=== PATIENT | female | born 1985 | race Caucasian/White ===

== ENCOUNTER 2019-10-09 17:35 | Emergency (ER) | payer OTHER ==
[~2019-10-09] VITALS: Ht 154.9 cm; Wt 44.5 kg
--- OUTSIDE RECORDS SUMMARY | ~2019-10-09 | XMS | Encounter Summary ---
Demographics + + + | Address | [address] | | | [place] [address] | + + + | Home Phone | | + + + | Preferred Language | Unknown | + + + | Marital Status | | + + + | Bahai Affiliation | 1013 | + + + | Race | Unknown | + + + | Ethnic Group | Unknown | + + + Author + + + | Author | [facility] | | | and [place] | + + + | Organization | [facility] | | | and [place] | + + + | Address | Unknown | + + + | Phone | Unavailable | + + + Support + + +---------+ + | Name | Relationship | Address | Phone | + + +---------+ + | Wai Escalante | ECON | Unknown | | + + +---------+ + Care Team Providers + +------+ + | Care Teletype Telegrapher Name | Role | Phone | + +------+ + PCP | Unavailable | + +------+ + Encounter Details +--------+ + + + + | Date | Type | Department | Care Team | Description | +--------+ + + + + | 08/11/ | Hospital | [facility] | Gino Metzger | | | 2011 | Encounter | HOSPITAL LABOR AND | [address] | | | | | [address] | [address] | | | | | [address] [place] | [place] | | | | | [address] | [address] | | | | | [phone] | [phone] | | | | | | | | +--------+ + + + + Social History + +-------+ +--------+------+ | Tobacco Use | Types | Packs/Day | Years | Date | | | | | Used | | + +-------+ +--------+------+ | Never Assessed | | | | | + +-------+ +--------+------+ + + + | Sex Assigned at | Date Recorded | | | | + + + | Not on file | | + + + + + + + | Job Start Date | Occupation | Industry | + + + + | Not on file | Not on file | Not on file | + + + + + + + + | Travel History | Travel Start | Travel End | + + + + + + | No recent travel history available. | + + documented as of this encounter Plan of Treatment +--------+---------+ + + + | Date | Type | Specialty | Care Team | Description | +--------+---------+ + + + | 10/10/ | Office | Family Medicine | Joseph Gilmore, | | | 2019 | Visit | | [facility] [address] | | | | | | [place] | | | | | | [id number] | | | | | | | | +--------+---------+ + + + documented as of this encounter Visit Diagnoses Not on filedocumented in this encounter"
--- OUTSIDE RECORDS SUMMARY | ~2019-10-09 | XMS | Encounter Summary ---
Demographics + + + | Address | [address] | | | [place] [address] | + + + | Home Phone | | + + + | Preferred Language | Unknown | + + + | Marital Status | | + + + | Scientology Affiliation | 1013 | + + + | Race | Unknown | + + + | Ethnic Group | Unknown | + + + Author + + + | Author | [facility] | | | and [place] | + + + | Organization | [facility] | | | and [...] Team Providers + +------+ + | Care Ranch Cook Name | Role | Phone | + +------+ + | Abimbola Guerin DO | PCP | | + +------+ + Reason for Visit + + + | Reason | Comments | + + + | ED Follow-up | | + + + Encounter Details +--------+ + + + + | Date | Type | Department | Care Team | Description | +--------+ + + + + | 01/04/ | Telephone | [facility] | Abimbola Guerin | ED Follow-up | | 2018 | | [facility] | [address] | | | | | [facility] [address] | [address] [place] | | | | | [facility] [place], | [place] [address] | | | | | [place] [address] | [phone] | | | | | [phone] | | | +--------+ + + + + Social History + +-------+ +--------+------+ | Tobacco Use | Types | Packs/Day | Years | Date | | | | | Used | | + +-------+ +--------+------+ | Never Smoker | | | | | + +-------+ +--------+------+ + +---+---+---+ | Smokeless Tobacco: | | | | | Never Used | | | | + +---+---+---+ + + +---------+ + | Alcohol Use | Drinks/Week | oz/Week | Comments | + + +---------+ + | Yes | 3 Glasses of wine | 3.0 | | + + +---------+ + + + + | Sex Assigned at [place] | | | | | | [id number] | | | | | | | | +--------+---------+ + + + documented as of this encounter Visit Diagnoses Not on filedocumented in this encounter"
--- OUTSIDE RECORDS SUMMARY | ~2019-10-09 | XMS | Encounter Summary ---
Demographics + + + | Address | [address] | | | [place] [address] | + + + | Home Phone | | + + + | Preferred Language | Unknown | + + + | Marital Status | | + + + | Jehovah'S Witness Affiliation | 1013 | + + + | Race | Unknown | + + + | Ethnic Group | Unknown | + + + Author + + + | Author | [facility] | | | and [place] | + + + | Organization | [facility] | | | [...] Team Providers + +------+ + | Care Abrasive Worker Name | Role | Phone | + +------+ + PCP | Unavailable | + +------+ + Encounter Details +--------+ + + + + | Date | Type | Department | Care Team | Description | +--------+ + + + + | 01/19/ | Hospital | [facility] | Karsten Baez | | | 2015 | Encounter | HOSPITAL NURSERY | [address] | | | | | [address] [place] | [address] [place], [place] | | | | | [place] | [address] | | | | | [address] | | | | | | [phone] | | | +--------+ + + + [...] [place] | | | | | | [address] | | | | | | | | +--------+---------+ + + + documented as of this encounter Visit Diagnoses Not on filedocumented in this encounter"
--- OUTSIDE RECORDS SUMMARY | ~2019-10-09 | XMS | Encounter Summary ---
Demographics + + + | Address | [address] | | | [place] [address] | + + + | Home Phone | | + + + | Preferred Language | Unknown | + + + | Marital Status | | + + + | Adventism Affiliation | 1013 | + + + | Race | Unknown | + + + | Ethnic Group | Unknown | + + + Author + + + | Author | [facility] | | | and [place] | + + + | Organization | [facility] | | [...] Team Providers + +------+ + | Care Scallop Shucker Name | Role | Phone | + +------+ + PCP | Unavailable | + +------+ + Encounter Details +--------+ + + + + | Date | Type | Department | Care Team | Description | +--------+ + + + + | 11/03/ | Hospital | [facility] | Gino Metzger | | | 2011 | Encounter | HOSPITAL OBSTETRICS | [address] | | | | | [address] [place] | [address] | | | | | [place] | [place] | | | | | [address] | [address] | | | | | [phone] | [phone] | | | | | | | [...] [place] | | | | | | [address] | | | | | | | | +--------+---------+ + + + documented as of this encounter Visit Diagnoses Not on filedocumented in this encounter"
--- OUTSIDE RECORDS SUMMARY | ~2019-10-09 | XMS | Encounter Summary ---
Demographics + + + | Address | [address] | | | [place] [address] | + + + | Home Phone | | + + + | Preferred Language | Unknown | + + + | Marital Status | | + + + | Denominational Affiliation | 1013 | + + + | Race | Unknown | + + + | Ethnic Group | Unknown | + + + Author + + + | Author | [facility] | | | and [place] | + + + | Organization | [facility] | | | [...] Team Providers + +------+ + | Care Research Agricultural Engineer Name | Role | Phone | + +------+ + PCP | Unavailable | + +------+ + Encounter Details +--------+ + + + + | Date | Type | Department | Care Team | Description | +--------+ + + + + | 08/11/ | Hospital | [facility] | Viky Fink NP | | | 2015 | Encounter | HOSPITAL LABORATORY | [address] | | | | | [address] [place] | [place] | | | | | [place] | [address] | | | | | [address] | [phone] | | | | | [phone] | | | +--------+ + + + [...] [place] | | | | | | [address] | | | | | | | | +--------+---------+ + + + documented as of this encounter Procedures + +--------+ + + + | Procedure Name | Priori | Date/Time | Associated Diagnosis | Comments | | | ty | | | | + +--------+ + + + | HCG, URINE, QUAL | Routin | 08/11/2016 | | Results for this | | | e | 1:57 PM | | procedure are in the | | | | PDT | | results section. | + +--------+ + + + documented in this encounter Results , Urine, Qual (08/11/2016 1:57 PM PDT) + + + + + + | Component | Value | Ref Range | Performed | Pathologist | | | | | At | Signature | + + + + + + | HCG SCREEN, | NEGATIVE | NEGATIVE | EXTERNAL | | | URINE | | | LAB | | + + + + + + | Internal QC | POSITIVE | POSITIVE | EXTERNAL | | | | | | LAB | | + + + + + + + + | Specimen | + + | | + + + +---------+ + + | Performing | Address | City/State/Zipcode | Phone Number | | Organization | | | | + +---------+ + + | EXTERNAL LAB | | | | + +---------+ + + documented in this encounter Visit Diagnoses Not on filedocumented in this encounter"
--- OUTSIDE RECORDS SUMMARY | ~2019-10-09 | XMS | Encounter Summary ---
Demographics + + + | Address | [address] | | | [place] [address] | + + + | Home Phone | | + + + | Preferred Language | Unknown | + + + | Marital Status | | + + + | Latter Day Affiliation | 1013 | + + + | Race | Unknown | + + + | Ethnic Group | Unknown | + + + Author + + + | Author | [facility] | | | and [place] | + + + | Organization | [facility] | | | and [...] Team Providers + +------+ + | Care Metal Handler Name | Role | Phone | + +------+ + PCP | Unavailable | + +------+ + Encounter Details +--------+ + + + + | Date | Type | Department | Care Team | Description | +--------+ + + + + | 10/24/ | Hospital | [facility] | Gino Metzger | | | 2012 | Encounter | HOSPITAL OBSTETRICS | [address] | | | | | [address] [place] | [address] | | | | | [place] | [place] | | | | | [address] | [address] | | | | | [phone] | | | | | | | [...] [place] | | | | | | [address] | | | | | | | | +--------+---------+ + + + documented as of this encounter Visit Diagnoses Not on filedocumented in this encounter"
--- OUTSIDE RECORDS SUMMARY | ~2019-10-09 | XMS | Encounter Summary ---
Demographics + + + | Address | [address] | | | [place] [address] | + + + | Home Phone | | + + + | Preferred Language | Unknown | + + + | Marital Status | | + + + | Jain Affiliation | 1013 | + + + | Race | Unknown | + + + | Ethnic Group | Unknown | + + + Author + + + | Author | [facility] | | | and [place] | + + + | Organization | [facility] | | | and [place] | + [...] Team Providers + +------+ + | Care Bar Assistant Name | Role | Phone | + +------+ + PCP | Unavailable | + +------+ + Encounter Details +--------+ + + + + | Date | Type | Department | Care Team | Description | +--------+ + + + + | 08/03/ | Hospital | [facility] | Viky Fink NP | | | 2015 | Encounter | HOSPITAL XRAY [address] | [address] | | | | | [place] | [place] | | | | | [place] | [address] | | | | | [address] | [phone] | | | | | [phone] | | | +--------+ + + + [...] [place] | | | | | | [address] | | | | | | | | +--------+---------+ + + + documented as of this encounter Procedures + +--------+ + + + | Procedure Name | Priori | Date/Time | Associated Diagnosis | Comments | | | ty | | | | + +--------+ + + + | US NON-OB | Routin | 08/03/2016 | | Results for this | | TRANSVAGINAL | e | 3:55 PM | | procedure are in the | | | | PDT | | results section. | + +--------+ + + + documented in this encounter Results US Non-Ob Transvaginal (08/03/2016 3:55 PM PDT) + + | Specimen | + + | | + + + + + | Narrative | Performed At | + + + | ORIGINAL PELVIC AND TRANSVAGINAL ULTRASOUND: | | | HISTORY: Left lower quadrant pain. Evaluate for cyst. FINDINGS: | | | Ovaries are normal in appearance. The left ovary has a 1.5 cm | | | dominant follicle. The right ovary has a 7 mm dominant follicle. The | | | uterus has an intrauterine device and measures 8.9 x 4.9 x 7.8 cm. | | | Cervix is unremarkable. There is trace free fluid in the | | | posterior cul-de-sac. IMPRESSION: 1. Normal appearance of | | | the ovaries. 2. Trace free fluid, likely physiologic. 3. | | | Intrauterine device is appropriately positioned. | | | JOB: [id number] Read By: NIDA PERSAUD MD Released By: | | | NIDA PERSAUD MD Date: 08/04/2016 12:23 | | + + + + + | Procedure Note | + + | Rosalino, Rad Results In - 09/29/2017 11:29 PM PST ORIGINAL PELVIC AND TRANSVAGINAL | | ULTRASOUND: HISTORY:Left lower quadrant pain. Evaluate for cyst. FINDINGS:Ovaries are | | normal in appearance. The left ovary has a 1.5 cm dominant follicle. The right ovary has | | a 7 mm dominant follicle. The uterus has an intrauterine device and measures 8.9 x 4.9 | | x 7.8 cm. Cervix is unremarkable. There is trace free fluid in the posterior | | cul-de-sac. IMPRESSION:1. Normal appearance of the ovaries.2. Trace free fluid, | | likely physiologic.3. Intrauterine device is appropriately positioned. | | JOB: [id number] Read By: NIDA PERSAUD MD Released By: ISAI JESSICAate: | | 08/04/2016 12:23 | |Ovaries are normal in appearance. The left ovary has a 1.5 cm dominant follicle. The right ovary has a 7 mm dominant follicle. The uterus has an intrauterine device and measures 8.9 x 4.9 x 7.8 cm. Cervix is | |unremarkable. There is trace free fluid in | |the posterior cul-de-sac. | | | |IMPRESSION: | |1. Normal appearance of the ovaries. | |2. Trace free fluid, likely physiologic. | |3. Intrauterine device is appropriately positioned. | | | | JOB: [id number] | | | |Read By: NIDA PERSAUD MD | | | |Released By: NIDA PERSAUD MD | |Date: 08/04/2016 12:23 | | | | | + + documented in this encounter Visit Diagnoses Not on filedocumented in this encounter"
--- OUTSIDE RECORDS SUMMARY | ~2019-10-09 | XMS | Clinical Summary ---
Demographics + + + | Address | [address] | | | [place] [address] | + + + | Home Phone | | + + + | Preferred Language | Unknown | + + + | Marital Status | | + + + | Mormon Affiliation | 1013 | + + + [...] Team Providers + +------+ + | Care Traffic Signal Technician Name | Role | Phone | + +------+ + | Joseph Gilmore MD | PCP | | + +------+ + Allergies + + + + + + | Active Allergy | Reactions | Severity | Noted | Comments | | | | | Date | | + + + + + + | Cortisone | Other (See Comments) | | 10/19/20 | Thyroid levels go | | | | | 17 | down | + + + + + + | Lactose Intolerance | | | 01/04/20 | | | (Gi) | | | 19 | | + + + + + + | Latex | Rash | Low | 10/19/20 | | | | | | 17 | | + + + + + + | Bacitracin-Neomycin- | Rash | Low | 10/19/20 | | | Polymyxin | | | 17 | | + + + + + + Medications + + + +---------+------+------+-------+ | Medication | Sig | Dispensed | Refills | Star | End | Statu | | | | | | t | Date | s | | | | | | Date | | | + + + +---------+------+------+-------+ | levonorgestrel | 1 Device by | | 0 | | | Activ | | (MIRENA, 52 MG,) 20 | Intrauterine route | | | | | e | | MCG/24HR IUD | once. | | | | | | + + + +---------+------+------+-------+ | cetirizine | Take 10 mg by mouth | | 0 | | | Activ | | (ZYRTEC) 10 mg | Daily. | | | | | e | | tablet | | | | | | | + + + +---------+------+------+-------+ | Multiple Vitamin | Take 1 tablet by | | 0 | | | Activ | | TABS | mouth Daily. | | | | | e | + + + +---------+------+------+-------+ Active Problems + + + | Problem | Noted Date | + + + | Cyst of left ovary | 01/04/2019 | + + + + + | Overview: spring | + + + + + | Breast density | 01/04/2019 | + + + + + | Overview: Right breast | + + + + + | Environmental allergies | 01/04/2019 | + + + | Milk allergy | 01/04/2019 | + + + | Family history of bicuspid aortic valve | 04/26/2018 | + + + + + | Last Assessment & Plan: Echocardiogram ordered. EKG from ER | | visit yesterday reviewed and normal. | + + Resolved Problems + + + + | Problem | Noted | Resolved | | | Date | Date | + + + + | Family planning | 10/19/20 | | | | 17 | 9 | + + + + | Encounter for annual routine gynecological examination | 10/19/20 | | | | 17 | 9 | + + + + Encounters +--------+---------+ + + + | Date | Type | Specialty | Care Team | Description | +--------+---------+ + + + | 10/05/ | Office | Family Medicine | Joesph Gilmore, | Annual physical exam | | 2019 | Visit | | MD | (Primary Dx); Chest | | | | | | wall pain; Need for | | | | | | vaccination | +--------+---------+ + + + from Last 3 Months Immunizations + + + + | Name | Administration Dates | Next Due | + + + + | INFLUENZA PF | 10/05/2019 | | | QUAD(PED/ADOL/ADULT) | | | | ,PSKT or VIAL | | | + + + + | INFLUENZA PF | 08/31/2016 | | | TRIVALENT(PED/ADOL/A | | | | DULT), PSKT | | | + + + + | TDAP, (ADOL/ADULT) | 10/05/2019 | | + + + + Family History + + +------+ + | Medical History | Relation | Name | Comments | + + +------+ + | High blood pressure | Father | | | + + +------+ + | High cholesterol | Father | | | + + +------+ + | Other (see comment) | Maternal | | diverticulitus/colitis | | | Grandmoth | | | | | er | | | + + +------+ + | Stroke | Maternal | | | | | Grandmoth | | | | | er | | | + + +------+ + | Asthma | Mother | | | + + +------+ + | High blood pressure | Paternal | | | | | Grandfath | | | | | er | | | + + +------+ + | Arthritis | Paternal | | | | | Grandmoth | | | | | er | | | + + +------+ + | Asthma | Sister | | | + + +------+ + | Miscarriages / | Sister | | two | | stillbirths | | | | + + +------+ + | Other (see comment) | Sister | | colitis | + + +------+ + | Other (see comment) | Sister | | colitis | + + +------+ + | No known problems | Sister | | | + + +------+ + | Heart defect | Son | | | + + +------+ + | Heart defect | Son | | | + + +------+ + + +------+ + + | Relation | Name | Status | Comments | + +------+ + + | Father | | Alive | | + +------+ + + | Maternal Grandfather | | | | + +------+ + + | Maternal Grandmother | | | | + +------+ + + | Mother | | Alive | | + +------+ + + | Paternal Grandfather | | Alive | heart attack | + +------+ + + | Paternal Grandmother | | Alive | | + +------+ + + | Sister | | Alive | | + +------+ + + | Sister | | Alive | | + +------+ + + | Sister | | Alive | | + +------+ + + | Son | | | | + +------+ + + | Son | | | | + +------+ + + Social History + +-------+ +--------+------+ | Tobacco Use | Types | Packs/Day | Years | Date | | | | | Used | | + +-------+ +--------+------+ | Never Smoker | | | | | + +-------+ +--------+------+ + +---+---+---+ | Smokeless Tobacco: | | | | | Never Used | | | | + +---+---+---+ + + | Tobacco Cessation: Counseling Given: No | + + + + +---------+ + | Alcohol Use | Drinks/Week | oz/Week | Comments | + + +---------+ + | Yes | 2 Glasses of wine | 2.0 | les than one a week | + + +---------+ + + + [...] recent travel history available. | + + Last Filed Vital Signs + + + + + | Vital Sign | Reading | Time Taken | Comments | + + + + + | Blood Pressure | 98/60 | 10/05/2019 8:34 AM | | | | | PST | | + + + + + | Pulse | 94 | 10/05/2019 8:34 AM | | | | | PST | | + + + + + | Temperature | 36.9 C (98.4 F) | 10/05/2019 8:34 AM | | | | | PST | | + + + + + | Respiratory Rate | 14 | 10/05/2019 8:34 AM | | | | | PST | | + + + + + | Oxygen Saturation | 97% | 10/05/2019 8:34 AM | | | | | PST | | + + + + + | Inhaled Oxygen | - | - | | | Concentration | | | | + + + + + | Weight | 42.7 kg (94 lb 2.2 | 10/05/2019 8:34 AM | | | | oz) | PST | | + + + + + | Height | 155.5 cm (5' 1.22") | 10/05/2019 8:34 AM | | | | | PST | | + + + + + | Body Mass Index | 17.66 | 10/05/2019 8:34 AM | | | | | PST | | + + + + + Plan of Treatment +--------+---------+ + + + | Date | Type | Specialty | Care Team | Description | +--------+---------+ + + + | 10/10/ | Office | Family Medicine | Joseph Gilmore, | | | 2019 | Visit | | [facility] [address] | | | | | | [place] | | | | | | [id number] | | | | | | | | +--------+---------+ + + + + + + + + | Health Maintenance | Due Date | Last Done | Comments | + + + + + | Primary Care | | 10/05/2019, 01/04/2019, | | | Outreach (Low Risk) | 1 | 04/26/2018, Additional history | | | | | exists | | + + + + + | Cervical Cancer | | 10/19/2017, 10/26/2014 | | | Screening (Pap) | 2 | | | + + + + + | Vaccine: | | 10/05/2019 | | | Dtap/Tdap/Td (2 - | 9 | | | | Td) | | | | + + + + + | Vaccine: Influenza | Completed | 10/05/2019, 08/31/2016 | | + + + + + Procedures + +--------+ + + + | Procedure Name | Priori | Date/Time | Associated Diagnosis | Comments | | | ty | | | | + +--------+ + + + | POCT URINALYSIS, | Routin | 10/05/2019 | Annual physical | Results for this | | AUTO WITH CONF | e | 9:18 AM | exam | procedure are in the | | | | PST | | results section. | + +--------+ + + + from Last 3 Months Results POCT Urinalysis (10/05/2019 9:18 AM PST) + + + + + + | Component | Value | Ref Range | Performed | Pathologist | | | | | At | Signature | + + + + + + | Color, UA, | Yellow | Yellow, Light | | | | POC | | Yellow | | | + + + + + + | Clarity, | Clear | | | | | UA, POC | | | | | + + + + + + | Glucose, | Negative | Negative | | | | UA, POC | | | | | + + + + + + | Bilirubin, | Negative | Negative | | | | UA, POC | | | | | + + + + + + | Ketones, | Negative | Negative, 100 | | | | UA, POC | | mg/dL | | | + + + + + + | Specific | 1.010 | 1.001 - 1.030 | | | | [place], | | | | | | UA, POC | | | | | + + + + + + | Blood, UA, | Negative | Negative | | | | POC | | | | | + + + + + + | pH, UA, POC | 7.0 | 5.0, 6.0, 7.0, | | | | | | 8.0, 5.5, 6.5, | | | | | | 7.5 | | | + + + + + + | Protein, | Negative | Negative | | | | UA, POC | | | | | + + + + + + | Urobilinoge | 0.2 mg/dL | 0.2, Negative, | | | | n, UA, POC | | Normal, < 0.2 | | | | | | mg/dL, 1 mg/dL, | | | | | | < 0.2 E.U./dl, | | | | | | 1.0 E.U./dL, | | | | | | 0.2 mg/dL | | | + + + + + + | Nitrite, | Negative | Negative | | | | UA, POC | | | | | + + + + + + | Leukocyte | Negative | Negative | | | | Esterase, | | | | | | UA, POC | | | | | + + + + + + | Reducing | | | | | | Substances, | | | | | | Urine | | | | | + + + + + + | Ictotest | | | | | + + + + + + | Remark | | | | | + + + + + + + + | Specimen | + + | Urine | + + from Last 3 Months Insurance +-------+--------+ +--------+ +---------+------+ | Payer | Benefi | Subscriber | Effect | Phone | Address | Type | | | t Plan | ID | fabien | | | | | | / | | Dates | | | | | | Group | | | | | | +-------+--------+ +--------+ +---------+------+ | GEHA | GEHA | [id number] | 10/19/ | [phone] | | PPO | | | [employer] | | 2017-P | 6 | | | | | PPO | | resent | | | | +-------+--------+ +--------+ +---------+------+ | GEHA | GEHA | [id number] | [phone] | | PPO | | | [employer] | | 019-Pr | 6 | | | | | PPO | | esent | | | | +-------+--------+ +--------+ +---------+------+ + +--------+ +--------+ + + | Guarantor Name | Accoun | Relation to | Date | Phone | Billing Address | | | t Type | Patient | of | | | | | | | | | | + +--------+ +--------+ + + | Isha Escalante | Person | Self [birth year] | [address] | | | al/Fam [birth year] | 1985 | [phone] | [place] [address] | | | amanda | | | 6 (Home) | | + +--------+ +--------+ + + | SambrandonIshaabril Hill | Person | Self [birth year] | | [address] | | | al/Fam | | 1985 | [phone] | [place] [address] | | | amanda | | | 6 (Home) | | + +--------+ +--------+ + + Advance Directives + + + + + | Type | Date Recorded | Patient | Explanation | | | | Mine Analyst | | + + + + + | Power of | | | | | Glassware Verifier | | | | + + + + + | Advance | 04/25/2018 6:54 | | | | Directive | PM | | | + + + + +
--- OUTSIDE RECORDS SUMMARY | ~2019-10-09 | XMS | Encounter Summary ---
Demographics + + + | Address | [address] | | | [place] [address] | + + + | Home Phone | | + + + | Preferred Language | Unknown | + + + | Marital Status | | + + + | Quaker Affiliation | 1013 | + + + | Race | Unknown | + + + | Ethnic Group | Unknown | + + + Author + + + | Author | [facility] | | | and [place] | + + + | Organization | [facility] | | | and [place] | + + + | Address | Unknown | + + + | Phone | Unavailable | + + + Support + + +---------+ + | Name | Relationship | Address | Phone | + + +---------+ + | Wia Escalante | ECON | Unknown | | + + +---------+ + Care Team Providers + +------+ + | Care Electronic Funds Transfer Coordinator Name | Role | Phone | + +------+ + PCP | Unavailable | + +------+ + Encounter Details +--------+ + + + + | Date | Type | Department | Care Team | Description | +--------+ + + + + | 11/03/ | [facility] | [facility] | Hao Dubon NP | | | 2013 | Encounter | [facility] | [address], | | | | | [facility] [address] | [place] [address] | | | | | [facility] | [phone] | | | | | [place] [address] | | | | | | [phone] | | | +--------+ + + + [...] [place] | | | | | | [address] | | | | | | | | +--------+---------+ + + + documented as of this encounter Visit Diagnoses Not on filedocumented in this encounter"
--- OUTSIDE RECORDS SUMMARY | ~2019-10-09 | XMS | Encounter Summary ---
Demographics + + + | Address | [address] | | | [place] [address] | + + + | Home Phone | | + + + | Preferred Language | Unknown | + + + | Marital Status | | + + + | Buddhism Affiliation | 1013 | + + + | Race | Unknown | + + + | Ethnic Group | Unknown | + + + Author + + + | Author | [facility] | | | and [place] | + + + | Organization | [facility] | | [...] Team Providers + +------+ + | Care Tobacco Blender Name | Role | Phone | + +------+ + PCP | Unavailable | + +------+ + Encounter Details +--------+ + + + + | Date | Type | Department | Care Team | Description | +--------+ + + + + | 07/15/ | Hospital | [facility] | Bureau, | | | 2015 | Encounter | [facility] | Avinash Pierre, | | | | | [facility] | [address] | | | | | [address] [facility], | [address], [place] | | | | | [place] [address] | [address] | | | | | [phone] | [phone] | | | | | | | [...] [place] | | | | | | [address] | | | | | | | | +--------+---------+ + + + documented as of this encounter Visit Diagnoses Not on filedocumented in this encounter"
--- OUTSIDE RECORDS SUMMARY | ~2019-10-09 | XMS | Encounter Summary ---
Demographics + + + | Address | [address] | | | [place] [address] | + + + | Home Phone | | + + + | Preferred Language | Unknown | + + + | Marital Status | | + + + | Restoration Affiliation | 1013 | + + + | Race | Unknown | + + + | Ethnic Group | Unknown | + + + Author + + + | Author | [facility] | | | and [place] | + + + | Organization | [facility] | | | and [...] Team Providers + +------+ + | Care Visiting Housekeeper Name | Role | Phone | + +------+ + PCP | Unavailable | + +------+ + Encounter Details +--------+ + + + + | Date | Type | Department | Care Team | Description | +--------+ + + + + | 03/04/ | Hospital | [facility] | Ericka Hall | | | 2016 | Encounter | HOSPITAL NURSERY | [address] | | | | | [address] [place] | [facility] [place] | | | | | [place] | [address] | | | | | [address] | [phone] | | | | | [phone] | | | +--------+ + + + [...] [place] | | | | | | [address] | | | | | | | | +--------+---------+ + + + documented as of this encounter Visit Diagnoses Not on filedocumented in this encounter"
--- OUTSIDE RECORDS SUMMARY | ~2019-10-09 | XMS | Encounter Summary ---
Demographics + + + | Address | [address] | | | [place] [address] | + + + | Home Phone | | + + + | Preferred Language | Unknown | + + + | Marital Status | | + + + | Quaker Affiliation | 1013 | + + + | Race | Unknown | + + + | Ethnic Group | Unknown | + + + Author + + + | Author | [facility] | | | and [place] | + + + | Organization | [facility] | | | and [place] | + + + | Address | Unknown | + + + | Phone | Unavailable | + + + Support + + +---------+ + | Name | Relationship | Address | Phone | + + +---------+ + | Flavio Escalante | ECON | Unknown | | + + +---------+ + Care Team Providers + +------+ + | Care Dosimetrist Name | Role | Phone | + +------+ + PCP | Unavailable | + +------+ + Encounter Details +--------+ + + + + | Date | Type | Department | Care Team | Description | +--------+ + + + + | 08/21/ | Hospital | [facility] | Viky Fink NP | | | 2015 | Encounter | [facility] | [address] | | | | | [place] | [place] | | | | | [place] | [address] | | | | | [address] | [phone] | | | | | [phone] | | | +--------+ + + + [...] [place] | | | | | | [address] | | | | | | | | +--------+---------+ + + + documented as of this encounter Procedures + +--------+ + + + | Procedure Name | Priori | Date/Time | Associated Diagnosis | Comments | | | ty | | | | + +--------+ + + + | CT ABDOMEN PELVIS WO | Routin | 08/21/2016 | | Results for this | | CONTRAST | e | 7:55 AM | | procedure are in the | | | | PDT | | results section. | + +--------+ + + + documented in this encounter Results CT Abdomen Pelvis wo Contrast (08/21/2016 7:55 AM PDT) + + | Specimen | + + | | + + + + + | Narrative | Performed At | + + + | ORIGINAL CT ABDOMEN AND PELVIS WITHOUT CONTRAST: | | | CLINICAL STATEMENT: Continue left lower quadrant pain, IUD in place. | | | COMPARISON: Pelvic ultrasound 08/03/2016. TECHNIQUE: Axial | | | noncontrast images are obtained through the abdomen and pelvis. DLP | | | is 328.15 mGy-cm. REPORT: No dilated bowel loops or focal bowel | | | wall thickening is seen. Appendix is not definitely identified. No | | | right lower quadrant inflammatory changes are present. Follicles | | | demonstrated at the right ovary. IUD device is noted within | | | endometrium. No calcified renal collecting system calculi or | | | hydronephrosis is seen. The liver, gallbladder, adrenal glands, | | | spleen and pancreas appear within normal limits given noncontrast | | | technique. The lung bases are clear. Heart size is normal. The | | | visualized bony structures appear within normal limits. | | | IMPRESSION: No acute finding identified. Job #: | | | [id number] Read By: FLAVIO YOUNG MD Released By: FLAVIO Pringle | | | MD HANNAH Date: 08/21/2016 12:53 | | + + + + + | Procedure Note | + + | Rosalino, Rad Results In - 09/29/2017 11:39 PM PST [address] ABDOMEN AND PELVIS | | WITHOUT CONTRAST: CLINICAL STATEMENT:Continue left lower quadrant pain, IUD in place. | | COMPARISON:Pelvic ultrasound 08/03/2016. TECHNIQUE:Axial noncontrast images are obtained | | through the abdomen and pelvis. DLP is 328.15 mGy-cm. REPORT:No dilated bowel loops or | | focal bowel wall thickening is seen. Appendix is not definitely identified. No right | | lower quadrant inflammatory changes are present. Follicles demonstrated at the right | | ovary. IUD device is noted within endometrium. No calcified renal collecting system | | calculi or hydronephrosis is seen. The liver, gallbladder, adrenal glands, spleen and | | pancreas appear within normal limits given noncontrast technique. The lung bases are | | clear. Heart size is normal. The visualized bony structures appear within normal | | limits. IMPRESSION:No acute finding identified. Job #: [id number] Read By: | | FLAVIO YOUNG MD Released By: FLAVIO YOUNG MDDate: 08/21/2016 12:53 | |Axial noncontrast images are obtained through the abdomen and pelvis. DLP is 328.15 mGy-cm . | | | |REPORT: | |No dilated bowel loops or focal bowel wall thickening is seen. Appendix is not definitely identified. No right lower quadrant inflammatory changes are present. Follicles demonstrat ed at the right ovary. IUD device is noted within endometrium. | | | |No calcified renal collecting system calculi or hydronephrosis is seen. The liver, gallbla dder, adrenal glands, spleen and pancreas appear within normal limits given noncontrast tech nique. | | | |The lung bases are clear. Heart size is normal. The visualized bony structures appear wit hin normal limits. | | | |IMPRESSION: | |No acute finding identified. | | | | | | | | | |Read By: FLAVIO YOUNG MD | | | |Released By: FLAVIO YOUNG MD | |Date: 08/21/2016 12:53 | | | | | + + documented in this encounter Visit Diagnoses Not on filedocumented in this encounter"
--- OUTSIDE RECORDS SUMMARY | ~2019-10-09 | XMS | Encounter Summary ---
Demographics + + + | Address | [address] | | | [place] [address] | + + + | Home Phone | | + + + | Preferred Language | Unknown | + + + | Marital Status | | + + + | Rastafari Affiliation | 1013 | + + + | Race | Unknown | + + + | Ethnic Group | Unknown | + + + Author + + + | Author | [facility] | | | and [place] | + + + | Organization | [facility] | | | [...] Team Providers + +------+ + | Care Teacher Aide Name | Role | Phone | + +------+ + PCP | Unavailable | + +------+ + Encounter Details +--------+ + + + + | Date | Type | Department | Care Team | Description | +--------+ + + + + | 10/11/ | [facility] | [facility] | Hao Dubon NP | | | 2013 | Encounter | [facility] | [address], | | | | | MEDICAL CL[facility] | [place] [address] | | | | | [facility], | [phone] | | | | | [place] [address] | | | | | | [phone] | | | +--------+ + + + [...] [place] | | | | | | [address] | | | | | | | | +--------+---------+ + + + documented as of this encounter Visit Diagnoses Not on filedocumented in this encounter"
--- OUTSIDE RECORDS SUMMARY | ~2019-10-09 | XMS | Encounter Summary ---
Demographics + + + | Address | [address] | | | [place] [address] | + + + | Home Phone | | + + + | Preferred Language | Unknown | + + + | Marital Status | | + + + | Taoism Affiliation | 1013 | + + + | Race | Unknown | + + + | Ethnic Group | Unknown | + + + Author + + + | Author | [facility] | | | and [place] | + + + | Organization | [facility] | | | [...] Team Providers + +------+ + | Care Lead Furnace Operator Name | Role | Phone | + +------+ + PCP | Unavailable | + +------+ + Encounter Details +--------+ + + + + | Date | Type | Department | Care Team | Description | +--------+ + + + + | 09/22/ | Hospital | [facility] | Gino Metzger | | | 2011 | Encounter | HOSPITAL LABORATORY | [address] | | | | | [address] | [address] | | | | | [place] | [place] | | | | | [address] | [address] | | | | | [phone] | [phone] | | | | | | | [...] [place] | | | | | | [address] | | | | | | | | +--------+---------+ + + + documented as of this encounter Visit Diagnoses Not on filedocumented in this encounter"
--- OUTSIDE RECORDS SUMMARY | ~2019-10-09 | XMS | Encounter Summary ---
Demographics + + + | Address | [address] | | | [place] [address] | + + + | Home Phone | | + + + | Preferred Language | Unknown | + + + | Marital Status | | + + + | Nondenominational Affiliation | 1013 | + + + | Race | Unknown | + + + | Ethnic Group | Unknown | + + + Author + + + | Author | [facility] | | | and [place] | + + + | Organization | [facility] | | | [...] Team Providers + +------+ + | Care Cellar Supervisor Name | Role | Phone | + +------+ + PCP | Unavailable | + +------+ + Encounter Details +--------+ + + + + | Date | Type | Department | Care Team | Description | +--------+ + + + + | 09/11/ | Hospital | [facility] | Gino Metzger | | | 2016 | Encounter | HOSPITAL OBSTETRICS | [address] | | | | | [address] | [address] | | | | | [place] | [place] | | | | | [address] | [address] | | | | | [phone] | [phone] | | | | | | | [...] [place] | | | | | | [address] | | | | | | | | +--------+---------+ + + + documented as of this encounter Visit Diagnoses Not on filedocumented in this encounter"
--- OUTSIDE RECORDS SUMMARY | ~2019-10-09 | XMS | Encounter Summary ---
Demographics + + + | Address | [address] | | | [place] [address] | + + + | Home Phone | | + + + | Preferred Language | Unknown | + + + | Marital Status | | + + + | Mosque Affiliation | 1013 | + + + | Race | Unknown | + + + | Ethnic Group | Unknown | + + + Author + + + | Author | [facility] | | | and [place] | + + + | Organization | [facility] | | [...] Team Providers + +------+ + | Care Ice Cream Man Name | Role | Phone | + +------+ + | Abimbola Guerin DO | PCP | | + +------+ + Reason for Visit + + + | Reason | Comments | + + + | Imaging Only | | + + + Encounter Details +--------+ + + + + | Date | Type | Department | Care Team | Description | +--------+ + + + + | 06/06/ | Telephone | [facility] | Abimbola Guerin | Imaging Only | | 2018 | | [facility] | [address] | | | | | MED[facility] [address] | [address] [place] | | | | | [address] [place], | [place] [address] | | | | | [place] [address] | [phone] | | | | | [phone] | | | +--------+ + + + [...] 2 Glasses of wine | 2.0 | | + + +---------+ + + [...]
--- OUTSIDE RECORDS SUMMARY | ~2019-10-09 | XMS | Encounter Summary ---
Demographics + + + | Address | [address] | | | [place] [address] | + + + | Home Phone | | + + + | Preferred Language | Unknown | + + + | Marital Status | | + + + | Restorationist Affiliation | 1013 | + + + | Race | Unknown | + + + | Ethnic Group | Unknown | + + + Author + + + | Author | [facility] | | | and [place] | + + + | Organization | [facility] | | | and [...] Team Providers + +------+ + | Care Radial Router Operator Name | Role | Phone | [...] [place] | | | | | [address] | [address] | | | | | [phone] | [phone] | | | | | | | [...] [place] | | | | | | [address] | | | | | | | | +--------+---------+ + + + documented as of this encounter Visit Diagnoses Not on filedocumented in this encounter"
--- OUTSIDE RECORDS SUMMARY | ~2019-10-09 | XMS | Encounter Summary ---
Demographics + + + | Address | [address] | | | [place] [address] | + + + | Home Phone | | + + + | Preferred Language | Unknown | + + + | Marital Status | | + + + | Gnosticism Affiliation | 1013 | + + + [...] Team Providers + +------+ + | Care Home Health Travel Pt Name | Role | Phone | + +------+ + PCP | Unavailable | + +------+ + Encounter Details +--------+ + + + + | Date | Type | Department | Care Team | Description | +--------+ + + + + | 08/03/ | [facility] | [facility] | Viky Fink NP | | | 2016 | Encounter | HOSPITAL NURSERY | [address] | | | | | [address] [place] | [place] | | | | | [place] | [address] | | | | | [address] | [phone] | | | | | [phone] | | | +--------+ + + + [...] [place] | | | | | | [address] | | | | | | | | +--------+---------+ + + + documented as of this encounter Visit Diagnoses Not on filedocumented in this encounter"
--- OUTSIDE RECORDS SUMMARY | ~2019-10-09 | XMS | Encounter Summary ---
Demographics + + + | Address | [address] | | | [place] [address] | + + + | Home Phone | | + + + | Preferred Language | Unknown | + + + | Marital Status | | + + + | Cheondoism Affiliation | 1013 | + + + | Race | Unknown | + + + | Ethnic Group | Unknown | + + + Author + + + | Author | [facility] | | | and [place] | + + + | Organization | [facility] | | [...] Team Providers + +------+ + | Care Hand Finisher Name | Role | Phone | + [...] | | DELIVERY [address] | [address] | | | | | [address] [place] | [place] | | | | | [address] | [address] | | | | | [phone] | [phone] | | | | | | | [...] [place] | | | | | | [address] | | | | | | | | +--------+---------+ + + + documented as of this encounter Visit Diagnoses Not on filedocumented in this encounter"
--- OUTSIDE RECORDS SUMMARY | ~2019-10-09 | XMS | Encounter Summary ---
Demographics + + + | Address | [address] | | | [place] [address] | + + + | Home Phone | | + + + | Preferred Language | Unknown | + + + | Marital Status | | + + + | Christian Affiliation | 1013 | + + + | Race | Unknown | + + + | Ethnic Group | Unknown | + + + Author + + + | Author | [facility] | | | and [place] | + + + | Organization | [facility] | | | [...] Team Providers + +------+ + | Care Machine Rug Cleaner Name | Role | Phone | + +------+ + PCP | Unavailable | + +------+ + Encounter Details +--------+ + + + + | Date | Type | Department | Care Team | Description | +--------+ + + + + | 08/16/ | Hospital | [facility] | | | | 2006 - | Encounter | MED CTR [facility]OM[facility] | | | | | | [facility] [address] | | | | 08/19/ | | [place], | | | | 2006 | | [place] [address] | | | | | | [phone] | | | +--------+ + + + [...] [place] | | | | | | [address] | | | | | | | | +--------+---------+ + + + documented as of this encounter Visit Diagnoses Not on filedocumented in this encounter"
--- OUTSIDE RECORDS SUMMARY | ~2019-10-09 | XMS | Encounter Summary ---
Demographics + + + | Address | [address] | | | [place] [address] | + + + | Home Phone | | + + + | Preferred Language | Unknown | + + + | Marital Status | | + + + | Religion Affiliation | 1013 | + + + | Race | Unknown | + + + | Ethnic Group | Unknown | + + + Author + + + | Author | [facility] | | | and [place] | + + + | Organization | [facility] | | [...] Team Providers + +------+ + | Care Multi Needle Machine Operator Name | Role | Phone | [...] [place] | | | | | [address] | [address] | | | | | [phone] | [phone] | | | | | | | [...] [place] | | | | | | [address] | | | | | | | | +--------+---------+ + + + documented as of this encounter Visit Diagnoses Not on filedocumented in this encounter"
--- OUTSIDE RECORDS SUMMARY | ~2019-10-09 | XMS | Encounter Summary ---
Demographics + + + | Address | [address] | | | [place] [address] | + + + | Home Phone | | + + + | Preferred Language | Unknown | + + + | Marital Status | | + + + | Episcopal Affiliation | 1013 | + + + | Race | Unknown | + + + | Ethnic Group | Unknown | + + + Author + + + | Author | [facility] | | | and [place] | + + + | Organization | [facility] | | | [...] Team Providers + +------+ + | Care Bonding Machine Operator Name | Role | Phone | + +------+ + PCP | Unavailable | + +------+ + Encounter Details +--------+ + + + + | Date | Type | Department | Care Team | Description | +--------+ + + + + | 06/30/ | Hospital | [facility] | | | | 2006 | Encounter | MED CTR [facility] | | | | | | [facility] [address] | | | | | | [place], | | | | | | [place] [address] | | | | | | [phone] | | | +--------+ + + + [...] [place] | | | | | | [address] | | | | | | | | +--------+---------+ + + + documented as of this encounter Visit Diagnoses Not on filedocumented in this encounter"
--- OUTSIDE RECORDS SUMMARY | ~2019-10-09 | XMS | Encounter Summary ---
Demographics + + + | Address | [address] | | | [place] [address] | + + + | Home Phone | | + + + | Preferred Language | Unknown | + + + | Marital Status | | + + + | Shinto Affiliation | 1013 | + + + | Race | Unknown | + + + | Ethnic Group | Unknown | + + + Author + + + | Author | [facility] | | | and [place] | + + + | Organization | [facility] | | | [...] Team Providers + +------+ + | Care Sweatband Flanger Name | Role | Phone | + +------+ + PCP | Unavailable | + +------+ + Encounter Details +--------+ + + + + | Date | Type | Department | Care Team | Description | +--------+ + + + + | 08/03/ | [facility] | [facility] | Viky Fink NP | | | 2016 | Encounter | HOSPITAL NURSERY | [address] | | | | | [address] [place] | [place] | | | | | [place] | [address] | | | | | [address] | [phone] | | | | | [phone] | | | +--------+ + + + [...] [place] | | | | | | [id number] | | | | | | | | +--------+---------+ + + + documented as of this encounter Visit Diagnoses Not on filedocumented in this encounter"
--- OUTSIDE RECORDS SUMMARY | ~2019-10-09 | XMS | Encounter Summary ---
Demographics + + + | Address | [address] | | | [place] [address] | + + + | Home Phone | | + + + | Preferred Language | Unknown | + + + | Marital Status | | + + + | Mosque Affiliation | 1013 | + + + | Race | Unknown | + + + | Ethnic Group | Unknown | + + + Author + + + | Author | [facility] | | | and [place] | + + + | Organization | [facility] | | | and [...] Team Providers + +------+ + | Care Helminthologist Name | Role | Phone | + +------+ + | Abimbola Guerin DO | PCP | | + +------+ + Encounter Details +--------+ + + + + | Date | Type | Department | Care Team | Description | +--------+ + + + + | 10/19/ | Hospital | [facility] | Gino Metzger | | | 2016 | Encounter | HOSPITAL OBSTETRICS | [address] | | | | | [address] | [address] | | | | | [place], [place] | [place], [place] | | | | | [address] | [address] | | | | | [phone] | [phone] | | | | | | | [...] + + documented as of this encounter Medications at Time of Discharge + + + +---------+--------+ + | Medication | Sig | Dispensed | Refills | Start | End Date | | | | | | Date | | + + + +---------+--------+ + | levonorgestrel | 1 Device by | | 0 | | | | (MIRENA, 52 MG,) 20 | Intrauterine route | | | | 7 | | MCG/24HR IUD | once. | | | | | + + + +---------+--------+ + documented as of this encounter Plan [...] [place] | | | | | | [id number] | | | | | | | | +--------+---------+ + + + documented as of this encounter Visit Diagnoses Not on filedocumented in this encounter"
--- OUTSIDE RECORDS SUMMARY | ~2019-10-09 | XMS | Clinical Summary ---
Demographics + + + | Address | [address] | | | [place] [address] | + + + | Home Phone | | + + + | Preferred Language | Unknown | + + + | Marital Status | | + + + | Latter-Day Affiliation | 1013 | + + + | Race | Unknown | + + + | Ethnic Group | Unknown | + + + Author + + + | Author | [facility] | | | and Solitarioana | + + + | Organization | [facility] | | [...] Team Providers + +------+ + | Care Spa Manager Name | Role | Phone | + [...] 10/05/ | Office | Family Medicine | Joseph Gilmore, | Annual physical exam | | [...] [place] | | | | | | [address] | | | | | | | [...] 1.001 - 1.030 | | | | [place], | | | | | | [place], [...] +--------+ +---------+------+ | GEHA | GEHA | [id number] | 10/19/ | [phone] | | PPO | | | AETNA | | 2017-P | 6 | | | | | PPO | | resent | | | | +-------+--------+ +--------+ +---------+------+ | GEHA | GEHA | [id number] | | [phone] | | PPO | [...] Person | Self | [birth year] | | [address] | | | al/Fam | | 1985 | [phone] | [place] [address] | | | amanda | | | 6 (Home) | | + +--------+ +--------+ + + | SambrandonIshaabril Hill | Person | Self | [birth year] | | [address] | | | al/Fam | | 1985 | [phone] | [place] [address] | | | amanda | | | 6 (Home) | | + +--------+ +--------+ + + Advance Directives + + + + + | Type | Date Recorded | Patient | Explanation | | | | Greenhouse Florist | | + + + + + | Power of | | | | | Electrical Lineman | | | | + + + + + | Advance | 04/25/2018 6:54 | | | | Directive | PM | | | + + + + +
--- OUTSIDE RECORDS SUMMARY | ~2019-10-09 | XMS | Encounter Summary ---
Demographics + + + | Address | [address] | | | [place] [address] | + + + | Home Phone | | + + + | Preferred Language | Unknown | + + + | Marital Status | | + + + | Roman Catholic Affiliation | 1013 | + + + | Race | Unknown | + + + | Ethnic Group | Unknown | + + + Author + + + | Author | [facility] | | | and Solitarioana | + + + | Organization | [facility] | | [...] Team Providers + +------+ + | Care Contact Manager Name | Role | Phone | + +------+ + PCP | Unavailable | + +------+ + Encounter Details +--------+ + + + + | Date | Type | Department | Care Team | Description | +--------+ + + + + | 04/22/ | Hospital | [facility] | | | | 1999 | Encounter | [facility] | | | | | | CENTER [address] | | | | | | [place] | | | | | | [address] | | | | | | [phone] | | | +--------+ + + + [...] [place] | | | | | | [address] | | | | | | | | +--------+---------+ + + + documented as of this encounter Visit Diagnoses Not on filedocumented in this encounter"
--- OUTSIDE RECORDS SUMMARY | ~2019-10-09 | XMS | Encounter Summary ---
Demographics + + + | Address | [address] | | | [place] [address] | + + + | Home Phone | | + + + | Preferred Language | Unknown | + + + | Marital Status | | + + + | Orthodox Affiliation | 1013 | + + + | Race | Unknown | + + + | Ethnic Group | Unknown | + + + Author + + + | Author | [facility] | | | and Solitario[place] | + + + | Organization | [facility] | | [...] Team Providers + +------+ + | Care Director Of Digital Technology Name | Role | Phone | + +------+ + | Truong Abimbola Bhatti DO | PCP | | + +------+ + Reason for Visit + + + | Reason | Comments | + + + | Referral | pt would like to change location of referral | + + + Encounter Details +--------+ + + + + | Date | Type | Department | Care Team | Description | +--------+ + + + + | 05/12/ | Telephone | [facility] | Abimbola Guerin | Referral (pt would | | 2017 | | [facility] | Magy, DO [address] | like to change | | | | [facility] [address] | [address] [place] | location of | | | | [address] [place], | [place] [address] | referral) | | | | [place] [address] | [phone] | | | | | [phone] | | | +--------+ + + + [...] 2019 | Visit | | MD E[address] | | | | | | [place] | | | | | | [id number] | | | | | | | | +--------+---------+ + + + documented as of this encounter Visit Diagnoses Not on filedocumented in this encounter"
--- OUTSIDE RECORDS SUMMARY | ~2019-10-09 | XMS | Encounter Summary ---
Demographics + + + | Address | [address] | | | [place] [address] | + + + | Home Phone | | + + + | Preferred Language | Unknown | + + + | Marital Status | | + + + | Religion Affiliation | 1013 | + + + | Race | Unknown | + + + | Ethnic Group | Unknown | + + + Author + + + | Author | [facility] | | | and [place]itario[place] | + + + | Organization | [facility] | | [...] Team Providers + +------+ + | Care Dietary Worker Name | Role | Phone | + +------+ + PCP | Unavailable | + +------+ + Encounter Details +--------+ + + + + | Date | Type | Department | Care Team | Description | +--------+ + + + + | 12/09/ | Hospital | [facility] | Jadyn Galeas, | | | 2016 | Encounter | [facility] | HVAC RESIDENTIAL SERVICE TECHNICIAN [address] | | | | | MEDICAL CLIN[facility] [address] | [place] [address] | | | | | [address] [place], | [phone] | | | | | [place] [address] | | | | | | [phone] | | | +--------+ + + + [...] [place] | | | | | | [address] | | | | | | | | +--------+---------+ + + + documented as of this encounter Visit Diagnoses Not on filedocumented in this encounter"
--- OUTSIDE RECORDS SUMMARY | ~2019-10-09 | XMS | Encounter Summary ---
Demographics + + + | Address | [address] | | | [place] [address] | + + + | Home Phone | | + + + | Preferred Language | Unknown | + + + | Marital Status | | + + + | Mandaeism Affiliation | 1013 | + + + | Race | Unknown | + + + | Ethnic Group | Unknown | + + + Author + + + | Author | [facility] | | | and Solitarioana | + + + | Organization | [facility] | | | [...] Team Providers + +------+ + | Care Tape Cutting Machine Operator Name | Role | Phone | + +------+ + | GuerinAbimbola | PCP | | + +------+ + Reason for Visit + + + | Reason | Comments | + + + | Chest Pain | | + + + Encounter Details +--------+ + + + + | Date | Type | Department | Care Team | Description | +--------+ + + + + | 04/25/ | Emergency | [facility] | Landin, Cece M, | Chest wall pain | | 2018 | | [facility] | FIELD SERVICE ANALYST [address] | (Primary Dx) | | | | CENTER [address] | [place] | | | | | [place] | [address] | | | | | [address] | | | | | | [phone] | | | +--------+ + + + [...] + + documented as of this encounter Last Filed Vital Signs + + + + + | Vital Sign | Reading | Time Taken | Comments | + + + + + | Blood Pressure | 110/76 | 04/25/2018 6:45 PM | | | | | PDT | | + + + + + | Pulse | 77 | 04/25/2018 6:45 PM | | | | | PDT | | + + + + + | Temperature | 36.4 C (97.5 F) | 04/25/2018 5:57 PM | | | | | PDT | | + + + + + | Respiratory Rate | 22 | 04/25/2018 6:45 PM | | | | | PDT | | + + + + + | Oxygen Saturation | 100% | 04/25/2018 6:45 PM | | | | | PDT | | + + + + + | Inhaled Oxygen | - | - | | | Concentration | | | | + + + + + | Weight | 43.1 kg (95 lb) | 04/25/2018 5:57 PM | | | | | PDT | | + + + + + | Height | 154.9 cm (5' 1") | 04/25/2018 5:57 PM | | | | | PDT | | + + + + + | Body Mass Index | 17.95 | 04/25/2018 5:57 PM | | | | | PDT | | + + + + + documented in this encounter Discharge Instructions Instructions Cece Landin, FIELD SERVICE ANALYST - 04/25/2018Your EKG is normal. Your chest x-ray is norm al. Follow-up with Dr. Guerin as planned tomorrow for further evaluation AttachmentsThe following attachments cannot be sent through Care Everywhere.Chest Pain, Non cardiac (Slovenian)documented in this encounter Medications at Time of Discharge [...] Intrauterine route | | | | | | MCG/24HR IUD | once. | | | | | + + + +---------+--------+ + documented as of this encounter Plan of Treatment +--------+---------+ + + + | Date | Type | Specialty | Care Team | Description | +--------+---------+ + + + | 10/10/ | Office | Family Medicine | Joseph Gilmore, | | | 2019 | Visit | | MD [address] | | | | | | [place] | | | | | | [address] | | | | | | | | +--------+---------+ + + + documented as of this encounter Procedures + +--------+ + + + | Procedure Name | Priori | Date/Time | Associated Diagnosis | Comments | | | ty | | | | + +--------+ + + + | ECG - EXTERNAL SCAN | | 04/28/2018 | | Results for this | | | | 12:00 AM | | procedure are in the | | | | PDT | | results section. | + +--------+ + + + | ECG 12 LEAD | STAT | 04/25/2018 | | Results for this | | | | 6:33 PM | | procedure are in the | | | | PDT | | results section. | + +--------+ + + + | XR CHEST PA AND | STAT | 04/25/2018 | | Results for this | | LATERAL | | 6:29 PM | | procedure are in the | | | | PDT | | results section. | + +--------+ + + + documented in this encounter Results ECG - EXTERNAL SCAN (04/28/2018 12:00 AM PDT) + + + | Narrative | Performed At | + + + | Ordered by an | | | unspecified provider. | | + + + ECG 12 lead (04/25/2018 6:33 PM PDT) + + | Specimen | + + | | + + + + + | Narrative | Performed At | + + + | Heart Rate: 67 | [facility] | | bpmQRS Interval: 74 msQT Interval: 380 msQTC Interval: 401 msP Burgin: | TRACEMASTER | | 23 degQRS Burgin: 77 degT Wave Burg[place]: 40 degP-R Interval: 112 msec- | | | OTHERWISE NORMAL ECG -SINUS RHYTHM | | |P Burg[place]: 23 deg | | |QRS Burgin: 77 deg | | |T Wave Burgin: 40 deg | | |P-R Interval: 112 msec | | |- OTHERWISE NORMAL ECG - | | |SINUS RHYTHM | | + + + + +---------+ + + | Performing | Address | City/State/Zipcode | Phone Number | | Organization | | | | + +---------+ + + | [place] | | | | + +---------+ + + XR Chest PA and Lateral (04/25/2018 6:29 PM PDT) + + | Specimen | + + | | + + + + + | Impressions | Performed At | + + + | IMPRESSION: 1. No acute finding. 2. Opacity right lower lung zone | [facility] | | which may relate to nipple shadow or lung nodule. Recommend repeat | | | radiograph with nipple marker in place. Dictated by: Wai Valle | | | | | + + + + + + | Narrative | Performed At | + + + | EXAMINATION: XR CHEST PA AND LATERAL HISTORY: CHEST PAIN | [facility] | | COMPARISON STUDY: None FINDINGS: The lungs are well ventilated. | | | No pleural effusion. No pneumothorax. Cardiomediastinal | | | silhouette is normal. No acute osseous process. Projecting over | | | the right lower lung zone is a partially rounded approximate 12 mm | | | opacity. | | + + + + + | Procedure Note | + + | Rosalino, Rad Results In - 04/26/2018 6:48 AM PDT EXAMINATION:XR CHEST PA AND | | LATERALHISTORY:CHEST PAINCOMPARISON STUDY:NoneFINDINGS:The lungs are well ventilated. | | No pleural effusion. No pneumothorax. Cardiomediastinal silhouette is normal. No | | acute osseous process. Projecting over the right lower lung zone is a partially rounded | | approximate 12 mm opacity.IMPRESSION: IMPRESSION:1. No acute finding.2. Opacity right | | lower lung zone which may relate to nipple shadow or lung nodule. Recommend repeat | | radiograph with nipple marker in place.Dictated by: Wai Valle | | | |FINDINGS: | |The lungs are well ventilated. No pleural effusion. No pneumothorax. Cardiomediastinal s ilhouette is normal. No acute osseous process. Projecting over the right lower lung zone i s a partially rounded approximate 12 mm opacity. | | | |IMPRESSION: | |IMPRESSION: | |1. No acute finding. | |2. Opacity right lower lung zone which may relate to nipple shadow or lung nodule. Recomme nd repeat radiograph with nipple marker in place. | | | |Dictated by: Wai Valle | | | | | + + + +---------+ + + | Performing | Address | City/State/Zipcode | Phone Number | | Organization | | | | + +---------+ + + | [facility] | | | | + +---------+ + + documented in this encounter Visit Diagnoses + + | Diagnosis | + + | Chest wall pain - Primary Painful respiration | + + documented in this encounter
--- OUTSIDE RECORDS SUMMARY | ~2019-10-09 | XMS | Encounter Summary ---
Demographics + + + | Address | [address] | | | [place] [address] | + + + | Home Phone | | + + + | Preferred Language | Unknown | + + + | Marital Status | | + + + | Mormon Affiliation | 1013 | + + + | Race | Unknown | + + + | Ethnic Group | Unknown | + + + Author + + + | Author | [facility] | | | and [place]it[place] | + + + | Organization | [facility] | | [...] Team Providers + +------+ + | Care Clinical Manager Name | Role | Phone | [...] [address] [place] | [address] [place], [place] | | | | | [place] | [address] | | | | | [address] | | | | | | [phone] | | | +--------+ + + + [...] [place] | | | | | | [address] | | | | | | | | +--------+---------+ + + + documented as of this encounter Visit Diagnoses Not on filedocumented in this encounter"
--- OUTSIDE RECORDS SUMMARY | ~2019-10-09 | XMS | Encounter Summary ---
Demographics + + + | Address | [address] | | | [place] [address] | + + + | Home Phone | | + + + | Preferred Language | Unknown | + + + | Marital Status | | + + + | Temple Affiliation | 1013 | + + + | Race | Unknown | + + + | Ethnic Group | Unknown | + + + Author + + + | Author | [facility] | | | and [place]it[place] | + + + | Organization | [facility] | | [...] Team Providers + +------+ + | Care Atm Mechanic Name | Role | Phone | + +------+ + PCP | Unavailable | + +------+ + Encounter Details +--------+ + + + + | Date | Type | Department | Care Team | Description | +--------+ + + + + | 11/09/ | Hospital | [facility] | Hao Dubon NP | | | 2013 | Encounter | [facility] | [address], | | | | | [address] [place] | [place] [address] | | | | | [place] | [phone] | | | | | [address] | | | | | | [phone] | | | +--------+ + + + [...] [place] | | | | | | [address] | | | | | | | | +--------+---------+ + + + documented as of this encounter Procedures + +--------+ + + + | Procedure Name | Priori | Date/Time | Associated Diagnosis | Comments | | | ty | | | | + +--------+ + + + | TSH | Routin | 11/09/2014 | | Results for this | | | e | 12:10 PM | | procedure are in the | | | | PST | | results section. | + +--------+ + + + documented in this encounter Results TSH (11/09/2014 12:10 PM PST) + +-------+ + + + | Component | Value | Ref Range | Performed | Pathologist | | | | | At | Signature | + +-------+ + + + | TSH | 0.77 | 0.40 - 4.68 | EXTERNAL | | | | | mIU/L | LAB | | + +-------+ + + + + + | Specimen [...]
--- OUTSIDE RECORDS SUMMARY | ~2019-10-09 | XMS | Encounter Summary ---
Demographics + + + | Address | [address] | | | [place] [address] | + + + | Home Phone | | + + + | Preferred Language | Unknown | + + + | Marital Status | | + + + | Latter-Day Affiliation | 1013 | + + + | Race | Unknown | + + + | Ethnic Group | Unknown | + + + Author + + + | Author | [facility] | | | and [place]it[place] | + + + | Organization | [facility] | | | [...] Team Providers + +------+ + | Care Audio Production Engineer Name | Role | Phone | + +------+ + PCP | Unavailable | + +------+ + Encounter Details +--------+ + + + + | Date | Type | Department | Care Team | Description | +--------+ + + + + | 11/01/ | Hospital | [facility] | Gino Metzger | | | 2015 | Encounter | [facility] | [address] | | | | | [address] [place] | [address] | | | | | [place] | [place] | | | | | [address] | [address] | | | | | [phone] | [phone] | | | | | | | [...] [place] | | | | | | [address] | | | | | | | | +--------+---------+ + + + documented as of this encounter Visit Diagnoses Not on filedocumented in this encounter"
--- OUTSIDE RECORDS SUMMARY | ~2019-10-09 | XMS | Encounter Summary ---
Demographics + + + | Address | [address] | | | [place] [address] | + + + | Home Phone | | + + + | Preferred Language | Unknown | + + + | Marital Status | | + + + | Anglican Affiliation | 1013 | + + + | Race | Unknown | + + + | Ethnic Group | Unknown | + + + Author + + + | Author | [facility] | | | and [place] | + + + | Organization | [facility] | | [...] Team Providers + +------+ + | Care Industrial Education Instructor Name | Role | Phone | + +------+ + PCP | Unavailable | + +------+ + Encounter Details +--------+ + + + + | Date | Type | Department | Care Team | Description | +--------+ + + + + | 11/18/ | [facility] | [facility] | GuerinAbimbola | | | 2016 | Encounter | [facility] | [address] | | | | | MED[facility] CL[facility] [address] | [place] | | | | | [address] [facility], | [facility] [address] | | | | | [place] [address] | [phone] | | | | | [phone] | | | +--------+ + + + [...] [place] | | | | | | [address] | | | | | | | | +--------+---------+ + + + documented as of this encounter Visit Diagnoses Not on filedocumented in this encounter"
--- OUTSIDE RECORDS SUMMARY | ~2019-10-09 | XMS | Encounter Summary ---
Demographics + + + | Address | [address] | | | [place] [address] | + + + | Home Phone | | + + + | Preferred Language | Unknown | + + + | Marital Status | | + + + | Jehovah'S Witness Affiliation | 1013 | + + + | Race | Unknown | + + + | Ethnic Group | Unknown | + + + Author + + + | Author | [facility] | | | and [place] | + + + | Organization | [facility] | | | [...] Team Providers + +------+ + | Care Environmental Services Specialist Name | Role | Phone | + +------+ + PCP | Unavailable | + +------+ + Encounter Details +--------+ + + + + | Date | Type | Department | Care Team | Description | +--------+ + + + + | 07/23/ | Hospital | [facility] | Epi Dunne FNP | | | 2009 | Encounter | [facility] | [address] | | | | | [address] [place] | [address] [place], | | | | | [place], [place] | [place] [address] | | | | | [address] | [phone] | | | | | [phone] | | | +--------+ + + + [...] [place] | | | | | | [address] | | | | | | | | +--------+---------+ + + + documented as of this encounter Visit Diagnoses Not on filedocumented in this encounter"
--- OUTSIDE RECORDS SUMMARY | ~2019-10-09 | XMS | Encounter Summary ---
Demographics + + + | Address | [address] | | | [place] [address] | + + + | Home Phone | | + + + | Preferred Language | Unknown | + + + | Marital Status | | + + + | Hinduism Affiliation | 1013 | + + + | Race | Unknown | + + + | Ethnic Group | Unknown | + + + Author + + + | Author | [facility] | | | and [place]it[place] | + + + | Organization | [facility] | | | and [...] Team Providers + +------+ + | Care Buyer Grain Name | Role | Phone | + [...] | | | MED[facility] CL[facility] [address] | [address] [place] | location of | | | | [address] [place], | [place] [address] | referral) | | | | [place] [address] | [phone] | | | | | [phone] | | | +--------+ + + + [...] [place] | | | | | | [id number] | | | | | | | | +--------+---------+ + + + documented as of this encounter Visit Diagnoses Not on filedocumented in this encounter"
--- OUTSIDE RECORDS SUMMARY | ~2019-10-09 | XMS | Encounter Summary ---
Demographics + + + | Address | [address] | | | [place] [address] | + + + | Home Phone | | + + + | Preferred Language | Unknown | + + + | Marital Status | | + + + | Amish Affiliation | 1013 | + + + | Race | Unknown | + + + | Ethnic Group | Unknown | + + + Author + + + | Author | [facility] | | | and [place]it[place] | + + + | Organization | [facility] | | [...] Team Providers + +------+ + | Care Copper Roller Handler Printing Name | Role | Phone | + +------+ + PCP | Unavailable | + +------+ + Encounter Details +--------+ + + + + | Date | Type | Department | Care Team | Description | +--------+ + + + + | 01/19/ | [facility] | [facility] | Abimbola Guerin | | | 2017 | Encounter | [facility] | [address] | | | | | MEDICAL [facility] | [place] | | | | | [address] [facility], | [facility] [place] [address] | | | | | [place] [address] | [phone] | | | | | [phone] | | | +--------+ + + + [...] [place] | | | | | | [address] | | | | | | | | +--------+---------+ + + + documented as of this encounter Visit Diagnoses Not on filedocumented in this encounter"
--- OUTSIDE RECORDS SUMMARY | ~2019-10-09 | XMS | Encounter Summary ---
Demographics + + + | Address | [address] | | | [place] [address] | + + + | Home Phone | | + + + | Preferred Language | Unknown | + + + | Marital Status | | + + + | Rastafarian Affiliation | 1013 | + + + | Race | Unknown | + + + | Ethnic Group | Unknown | + + + Author + + + | Author | [facility] | | | and [place] | + + + | Organization | [facility] | | [...] Team Providers + +------+ + | Care Secondary Education Professor Name | Role | Phone | + [...] | 2018 | | HOSPITAL [facility] | GAMBLING B[address] PERSON [address] | (Primary Dx) | | | | CENTER [address] | [place] | | | | | [place] | [address] | | | | | [address] | | | | | | [phone] | | | +--------+ + + + [...] this encounter Discharge Instructions Instructions Cece Landin, GAMBLING BOX PERSON - 04/25/2018Your EKG is normal. Your chest x-ray is norm al. Follow-up with Dr. Guerin as planned tomorrow for further evaluation AttachmentsThe following attachments cannot be sent through Care Everywhere.Chest Pain, Non cardiac (Belgian)documented in this encounter Medications at Time of [...] [place] | | | | | | [address] | | | | | | | [...] msQT Interval: 380 msQTC Interval: 401 msP [place]: | TRACEMASTER | | 23 degQRS [place]: 77 degT Wave [place]: 40 degP-R Interval: 112 msec- | | | OTHERWISE NORMAL ECG -SINUS RHYTHM | | |P [place]: 23 deg | | |QRS [place]: 77 deg | | |T Wave [place]: 40 deg | | |P-R Interval: 112 [...]
--- OUTSIDE RECORDS SUMMARY | ~2019-10-09 | XMS | Encounter Summary ---
Demographics + + + | Address | [address] | | | [place] [address] | + + + | Home Phone | | + + + | Preferred Language | Unknown | + + + | Marital Status | | + + + | Jainism Affiliation | 1013 | + + + | Race | Unknown | + + + | Ethnic Group | Unknown | + + + Author + + + | Author | [facility] | | | and [place] | + + + | Organization | [facility] | | | [...] Team Providers + +------+ + | Care Siding Coreboard Inspector Name | Role | Phone | + +------+ + PCP | Unavailable | + +------+ + Encounter Details +--------+ + + + + | Date | Type | Department | Care Team | Description | +--------+ + + + + | 08/24/ | Hospital | [facility] | Gino Metzger | | | 2013 | Encounter | [facility] | [address] | | | | | [address] [place] | [address] | | | | | [place] | [place] | | | | | [address] | [address] | | | | | [phone] | [phone] | | | | | | | [...] [place] | | | | | | [address] | | | | | | | | +--------+---------+ + + + documented as of this encounter Visit Diagnoses Not on filedocumented in this encounter"
--- OUTSIDE RECORDS SUMMARY | ~2019-10-09 | XMS | Encounter Summary ---
Demographics + + + | Address | [address] | | | [place] [address] | + + + | Home Phone [...] Team Providers + +------+ + | Care Sensory Scientist Name | Role | Phone | + +------+ + PCP | Unavailable | + +------+ + Encounter Details +--------+ + + + + | Date | Type | Department | Care Team | Description | +--------+ + + + + | 10/18/ | [facility] | Lucretia Monterroso | | | 2016 | Encounter | HOSPITAL EMERGENCY | C, BAKING POWDER MIXER [address] | | | | | CENTER [address] | [place] | | | | | [place] | [address] | | | | | [address] | | | | | | [phone] | | | +--------+ + + + [...] [place] | | | | | | [id number] | | | | | | | | +--------+---------+ + + + documented as of this encounter Procedures + +--------+ + + + | Procedure Name | Priori | Date/Time | Associated Diagnosis | Comments | | | ty | | | | + +--------+ + + + | CBC W/AUTO | STAT | 10/18/2016 | | Results for this | | DIFFERENTIAL | | 11:40 AM | | procedure are in the | | | | PST | | results section. | + +--------+ + + + | BASIC METABOLIC | STAT | 10/18/2016 | | Results for this | | PANEL | | 11:40 AM | | procedure are in the | | | | PST | | results section. | + +--------+ + + + documented in this encounter Results CBC w/ Auto Differential (10/18/2016 11:40 AM PST) + +-------+ + + + | Component | Value | Ref Range | Performed | Pathologist | | | | | At | Signature | + +-------+ + + + | WBC | 5.1 | 4.3 - 10.4 | EXTERNAL | | | | | 1000/mm3 | LAB | | + +-------+ + + + | RBC | 4.5 | 4.12 - 5.30 | EXTERNAL | | | | | mil/mm3 | LAB | | + +-------+ + + + | HGB, | 14.1 | 12.4 - 15.7 | EXTERNAL | | | External | | g/dL | LAB | | + +-------+ + + + | HCT, | 41 | 37.7 - 47.0 % | EXTERNAL | | | External | | | LAB | | + +-------+ + + + | MCV | 91 | 82 - 97 fl | EXTERNAL | | | | | | LAB | | + +-------+ + + + | MCH | 31.3 | 27.1 - 32.3 pg | EXTERNAL | | | | | | LAB | | + +-------+ + + + | MCHC | 34.4 | 32.0 - 36.9 | EXTERNAL | | | | | g/dL | LAB | | + +-------+ + + + | RDW-CV | 11.4 | <=17.0 % | EXTERNAL | | | | | | LAB | | + +-------+ + + + | RDW-SD | 38.1 | 34.0 - 57.0 fL | EXTERNAL | | | | | | LAB | | + +-------+ + + + | Platelet | 210 | 150 - 450 | EXTERNAL | | | Count | | 1000/mm3 | LAB | | | Plasma | | | | | + +-------+ + + + | MPV | 10 | 9.4 - 12.3 FL | EXTERNAL | | | | | | LAB | | + +-------+ + + + | % Segmented | 54.2 | 42.0 - 76.0 % | EXTERNAL | | | | | | LAB | | | Neutrophils | | | | | + +-------+ + + + | % | 36.7 | 20.0 - 40.0 % | EXTERNAL | | | Lymphocytes | | | LAB | | + +-------+ + + + | % Monocytes | 6.9 | 3.0 - 13.0 % | EXTERNAL | | | | | | LAB | | + +-------+ + + + | % | 1 | 0.0 - 7.0 % | EXTERNAL | | | Eosinophils | | | LAB | | + +-------+ + + + | % Basophils | 0.8 | 0.0 - 2.0 % | EXTERNAL | | | | | | LAB | | + +-------+ + + + | % Immature | 0.4 | 0.0 - 0.5 % | EXTERNAL | | | Granulocyte | | | LAB | | | s | | | | | + +-------+ + + + | % nRBC | 0 | 0.0 - 0.2 /100 | EXTERNAL | | | | | WBC | LAB | | + +-------+ + + + | Absolute | 2.75 | 2.50 - 8.50 | EXTERNAL | | | Neutrophils | | 1000/mm3 | LAB | | + +-------+ + + + | Absolute | 1.86 | 1.00 - 3.80 | EXTERNAL | | | Lymphocytes | | 1000/mm3 | LAB | | + +-------+ + + + | Absolute | 0.35 | 0.00 - 0.80 | EXTERNAL | | | Monocytes | | 1000/mm3 | LAB | | + +-------+ + + + | Absolute | 0.05 | 0.00 - 0.70 | EXTERNAL | | | Eosinophils | | 1000/mm3 | LAB | | + +-------+ + + + | Absolute | 0.04 | 0.00 - 0.20 | EXTERNAL | | | Basophils | | 1000/mm3 | LAB | | + +-------+ + + + | Absolute | 0.03 | 0.00 - 0.15 | EXTERNAL | | | Immature | | 1000/mm3 | LAB | | | Granulocyte | | | | | | s | | | | | + +-------+ + + + | Absolute | 0.01 | 0.00 - 0.01 | EXTERNAL | | | nRBC | | 1000/mm3 | LAB | | + +-------+ + + + | SLIDE | NO | | EXTERNAL | | | REVIEWED | | | LAB | | + +-------+ + + + + + | Specimen | + + | | + + + +---------+ + + | Performing | Address | City/State/Zipcode | Phone Number | | Organization | | | | + +---------+ + + | EXTERNAL LAB | | | | + +---------+ + + Basic Metabolic Panel (10/18/2016 11:40 AM PST) + +-------+ + + + | Component | Value | Ref Range | Performed | Pathologist | | | | | At | Signature | + +-------+ + + + | Sodium | 142 | 132 - 143 | EXTERNAL | | | | | mmol/L | LAB | | + +-------+ + + + | Potassium | 3.7 | 3.3 - 4.9 | EXTERNAL | | | | | mmol/L | LAB | | + +-------+ + + + | Cl | 108 | 95 - 108 mmol/L | EXTERNAL | | | | | | LAB | | + +-------+ + + + | CO2 | 26 | 23 - 34 mmol/L | EXTERNAL | | | | | | LAB | | + +-------+ + + + | Anion Gap | 8 | 7 - 16 | EXTERNAL | | | | | | LAB | | + +-------+ + + + | Calcium | 8.4 | 8.3 - 10.0 | EXTERNAL | | | | | mg/dL | LAB | | + +-------+ + + + | Glucose | 85 | 70 - 110 mg/dL | EXTERNAL | | | | | | LAB | | + +-------+ + + + | BUN, Bld | 4 | 5 - 26 mg/dL | EXTERNAL | | | | | | LAB | | + +-------+ + + + | Creatinine | 0.68 | 0.60 - 1.30 | EXTERNAL | | | | | mg/dL | LAB | | + +-------+ + + + | BUN/Creatin | 5.9 | 7.0 - 24.0 | EXTERNAL | | | ine Ratio | | RATIO | LAB | | + +-------+ + + + | GFR | 60 | >=60 | EXTERNAL | | | ESTIMATE | | mL/min/1.73m2 | LAB | | + +-------+ + [...]
--- OUTSIDE RECORDS SUMMARY | ~2019-10-09 | XMS | Encounter Summary ---
Demographics + + + | Address | [address] | | | [place] [address] | + + + | Home Phone | | + + + | Preferred Language | Unknown | + + + | Marital Status | | + + + | Adventist Affiliation | 1013 | + + + [...] Team Providers + +------+ + | Care Electric Arc Welder Name | Role | Phone | + +------+ + PCP | Unavailable | + +------+ + Encounter Details +--------+ + + + + | Date | Type | Department | Care Team | Description | +--------+ + + + + | 10/25/ | Hospital | [facility] | Conversion | | | 2012 | Encounter | HOSPITAL BUSINESS | Transaction, | | | | | OFFICE [address] | Provider Unknown | | | | | [address] [place] | | | | | | [address] | (Fax) | | | | | [phone] | | | +--------+ + + + [...] 2019 | Visit | | MD [address] | | | | | | [place] | | | | | | [phone] | | | | | | | | +--------+---------+ + + + documented as of this encounter Visit Diagnoses Not on filedocumented in this encounter"
--- OUTSIDE RECORDS SUMMARY | ~2019-10-09 | XMS | Encounter Summary ---
Demographics + + + | Address | [address] | | | [place] [address] | + + + | Home Phone | | + + + | Preferred Language | Unknown | + + + | Marital Status | | + + + | Catholic Affiliation | 1013 | + + + | Race | Unknown | + + + | Ethnic Group | Unknown | + + + Author + + + | Author | [facility] | | | and [place] | + + + | Organization | [facility] | | | [...] Team Providers + +------+ + | Care Bacteriologist Dairy Name | Role | Phone | + [...] [place] | | | | | [address] | [address] | | | | | [phone] | [phone] | | | | | | | [...] [place] | | | | | | [id number] | | | | | | | | +--------+---------+ + + + documented as of this encounter Visit Diagnoses Not on filedocumented in this encounter"
--- OUTSIDE RECORDS SUMMARY | ~2019-10-09 | XMS | Encounter Summary ---
Demographics + + + | Address | [address] | | | [place] [address] | + + + | Home Phone | | + + + | Preferred Language | Unknown | + + + | Marital Status | | + + + | Anabaptism Affiliation | 1013 | + + + | Race | Unknown | + + + | Ethnic Group | Unknown | + + + Author + + + | Author | [facility] | | | and [place] | + + + | Organization | [facility] | | | [...] Team Providers + +------+ + | Care Neurology Epilepsy Physician Name | Role | Phone | + +------+ + | Truong Abimbola Bhatti DO | PCP | | + +------+ + Reason for Visit + + + | Reason | Comments | + + + | Contraception | IUD Check | + + + Encounter Details +--------+---------+ + + + | Date | Type | Department | Care Team | Description | +--------+---------+ + + + | 12/31/ | Office | [facility] | Yass[facility] | Family planning | | 2018 | Visit | [facility] | [address] | (Primary Dx) | | | | CLINIC [address] | [address] | | | | | [address] [place], | [place], [place] | | | | | [place] [address] | [address] | | | | | [phone] | [phone] | | | | | | | | +--------+---------+ + + + Social History + +-------+ [...] + + + | Blood Pressure | 103/62 | 12/31/2017 8:21 AM | | | | | PST | | + + + + + | Pulse | 77 | 12/31/2017 8:21 AM | | | | | PST | | + + + + + | Temperature | - | - | | + + + + + | Respiratory Rate | - | - | | + + + + + | Oxygen Saturation | - | - | | + + + + + | Inhaled Oxygen | - | - | | | Concentration | | | | + + + + + | Weight | 43.2 kg (95 lb 4.8 | 12/31/2017 8:21 AM | | | | oz) | PST | | + + + + + | Height | 154.9 cm (5' 1") | 12/31/2017 8:21 AM | | | | | PST | | + + + + + | Body Mass Index | 18.01 | 12/31/2017 8:21 AM | | | | | PST | | + + + + + documented in this encounter Progress Notes Gino Metzger MD - 12/31/2017 8:30 AM PSTFormatting of this note might be differen t from the original. Subjective: Patient ID: Isha Escalante is a 32 y.o. female. HPI Her for f/u of mirena insertion; no complaints or bleeding has a past medical history of Anemia. has no past surgical history on file. reports that she has never smoked. She has never used smokeless tobacco. She reports that she drinks about 1.8 oz of alcohol per week . She reports that she does not use drugs. family history includes No Known Problems in her father, mother, sister, and sister; Other (see comment) in her maternal grandmother and sister; Stroke in her maternal grandmother. Review of Systems No vb or history of std Objective: BP 103/62 | Pulse 77 | Ht 1.549 m (5' 1") | Wt 43.2 kg (95 lb 4.8 oz) | BMI 18.01 kg/m Physical Exam Physical Exam Constitutional: She appears well-developed and well-nourished. Abdominal: Soft. Bowel sounds are normal. Genitourinary: Vagina normal and uterus normal. Normal external female genitalia Vagina without lesion or discharge cx without lesion Uterus small and nontender; iud string 3 cm and appropriately positioned Adnexa no masses or tenderness Bus neg Assessment: Normal iud Plan: F/u one yr of prn documented in th is encounter Plan of Treatment +--------+---------+ + + + | Date | Type | Specialty | Care Team | Description | +--------+---------+ + + + | 10/10/ | Office | Family Medicine | Joseph Gilmore, | | | 2019 | Visit | | MD [address] | | | | | | [place] | | | | | | [phone] | | | | | | | | +--------+---------+ + + + documented as of this encounter Visit Diagnoses + + | Diagnosis | + + | Family planning - Primary Other general counseling and advice for contraceptive | | management | + + documented in this encounter
--- OUTSIDE RECORDS SUMMARY | ~2019-10-09 | XMS | Encounter Summary ---
Demographics + + + | Address | [address] | | | [place] [address] | + + + | Home Phone [...] Team Providers + +------+ + | Care Electrolysis Engineer Name | Role | Phone | + +------+ + | Truong Abimbola Bhatti DO | PCP | | + +------+ + Reason for Visit + + + | Reason | Comments | + + + | New Patient | | + + + Encounter Details +--------+ + + + + | Date | Type | Department | Care Team | Description | +--------+ + + + + | 11/09/ | Telephone | [facility] | Joseph Gilmore, | New Patient | | 2018 | | MEDICINE [place] | [address] | | | | | [address] | [place] | | | | | [place] | [address] | | | | | [address] | | | | | | [phone] | | | +--------+ + + + [...]
--- OUTSIDE RECORDS SUMMARY | ~2019-10-09 | XMS | Encounter Summary ---
Demographics + + + | Address | [address] | | | [place] [address] | + + + | Home Phone | | + + + | Preferred Language | Unknown | + + + | Marital Status | | + + + | Voodoo Affiliation | 1013 | + + + [...] Team Providers + +------+ + | Care Chemical Processing Supervisor Name | Role | Phone | + +------+ + PCP | Unavailable | + +------+ + Encounter Details +--------+ + + + + | Date | Type | Department | Care Team | Description | +--------+ + + + + | 04/22/ | Hospital | [facility] | | | | 1999 | Encounter | MED CTR EM[facility] | | | | | | CENTER [address] | | | | | | [place] | | | | | | [address] | | | | | | [phone] | | | +--------+ + + + [...] [place] | | | | | | [address] | | | | | | | | +--------+---------+ + + + documented as of this encounter Visit Diagnoses Not on filedocumented in this encounter"
--- OUTSIDE RECORDS SUMMARY | ~2019-10-09 | XMS | Encounter Summary ---
Demographics + + + | Address | [address] | | | [place] [address] | + + + | Home Phone | | + + + | Preferred Language | Unknown | + + + | Marital Status | | + + + | Pentecostal Affiliation | 1013 | + + + | Race | Unknown | + + + | Ethnic Group | Unknown | + + + Author + + + | Author | [facility] | | | and [place] | + + + | Organization | [facility] | | [...] Team Providers + +------+ + | Care Upholstery Cleaner Name | Role | Phone | [...] | | | | [place] | [address] | | | | | [address] | [phone] | | | | | [phone] | | | +--------+ + + + [...] [place] | | | | | | [phone] | | | | | | | [...] is appropriately positioned. | | | JOB: [id number] Read By: NIDA PERSAUD MD Released By: [...] device is appropriately positioned. | | JOB: [id number] Read By: NIDA PERSAUD MD Released By: [...] appropriately positioned. | | | | JOB: [id number] | | | |Read By: NIDA PERSAUD MD | | | |Released By: NIDA PERSAUD MD | |Date: 08/04/2016 12:23 | | | | | + + documented in this encounter Visit Diagnoses Not on filedocumented in this encounter"
--- OUTSIDE RECORDS SUMMARY | ~2019-10-09 | XMS | Encounter Summary ---
Demographics + + + | Address | [address] | | | [place] [address] | + + + | Home Phone [...] Team Providers + +------+ + | Care Senior Advocate Name | Role | Phone | + +------+ + PCP | Unavailable | + +------+ + Encounter Details +--------+ + + + + | Date | Type | Department | Care Team | Description | +--------+ + + + + | 07/17/ | Hospital | [facility] | Gino Metzger | | | 2013 | Encounter | HOSPITAL OBSTETRICS | [address] | | | | | [address] | [address] | | | | | [place] | [place] | | | | | [address] | [address] | | | | | [phone] | [phone] | | | | | | | [...] [place] | | | | | | [phone] | | | | | | | | +--------+---------+ + + + documented as of this encounter Visit Diagnoses Not on filedocumented in this encounter"
--- OUTSIDE RECORDS SUMMARY | ~2019-10-09 | XMS | Encounter Summary ---
Demographics + + + | Address | [address] | | | [place] [address] | + + + | Home Phone | | + + + | Preferred Language | Unknown | + + + | Marital Status | | + + + | Samaritan Affiliation | 1013 | + + + | Race | Unknown | + + + | Ethnic Group | Unknown | + + + Author + + + | Author | [facility] | | | and [place] | + + + | Organization | [facility] | | | [...] Team Providers + +------+ + | Care Laborer Salvage Name | Role | Phone | + +------+ + | Truong Abimbola Bhatti | PCP | | + +------+ + Reason for Visit + + + | Reason | Comments | + + + | Head Injury Without | | | Loc | | + + + Encounter Details +--------+ + + + + | Date | Type | Department | Care Team | Description | +--------+ + + + + | 12/27/ | Emergency | [facility] | Tiago Dean, | | | 2017 | | HOSPITAL EMERGENCY | WAITER AND CASHIER [address] | encounter (Primary | | | | CENTER [address] | [address] [place] | Dx) | | | | [address] [place] | [address] | | | | | [address] | | | | | | [phone] | | | +--------+ + + + [...] + + + | Blood Pressure | 105/75 | 12/27/2017 8:42 PM | | | | | PST | | + + + + + | Pulse | 88 | 12/27/2017 8:42 PM | | | | | PST | | + + + + + | Temperature | - | - | | + + + + + | Respiratory Rate | 16 | 12/27/2017 8:42 PM | | | | | PST | | + + + + + | Oxygen Saturation | 100% | 12/27/2017 8:42 PM | | | | | PST | | + + + + + | Inhaled Oxygen | - | - | | | Concentration | | | | + + + + + | Weight | 43.1 kg (95 lb) | 12/27/2017 8:42 PM | | | | | PST | | + + + + + | Height | 154.9 cm (5' 1") | 12/27/2017 8:42 PM | | | | | PST | | + + + + + | Body Mass Index | 17.95 | 12/27/2017 8:42 PM | | | | | PST | | + + + + + documented in this encounter Discharge Instructions AttachmentsThe following attachments cannot be sent through Care Everywhere.Falls, Preventi ng, Staying Active (Mauritanian)documented in this encounter Plan of Treatment +--------+---------+ + + + | Date | Type | Specialty | Care Team | Description | +--------+---------+ + + + | 10/10/ | Office | Family Medicine | Joseph Gilmore, | | | 2019 | Visit | | [address] | | | | | | [place] | | | | | | [phone] | | | | | | | | +--------+---------+ + + + documented as of this encounter Visit Diagnoses + + | Diagnosis | + + | Fall, initial encounter - Primary | + + documented in this encounter
--- OUTSIDE RECORDS SUMMARY | ~2019-10-09 | XMS | Encounter Summary ---
Demographics + + + | Address | [address] | | | [place] [address] | + + + | Home Phone | | + + + | Preferred Language | Unknown | + + + | Marital Status | | + + + | Yarsani Affiliation | 1013 | + + + | Race | Unknown | + + + | Ethnic Group | Unknown | + + + Author + + + | Author | [facility] | | | and [place] | + + + | Organization | [facility] | | [...] Team Providers + +------+ + | Care Package Designer Name | Role | Phone | + [...] | | | | [place] | [address] | | | | | [address] | [phone] | | | | | [phone] | | | +--------+ + + + [...] [place] | | | | | | [id number] | | | | | | | | +--------+---------+ + + + documented as of this encounter Procedures + +--------+ + + + | Procedure Name | Priori | Date/Time | Associated Diagnosis | Comments | | | ty | | | | + +--------+ + + + | CBC W/AUTO | STAT | 08/03/2016 | | Results for this | | DIFFERENTIAL | | 2:03 PM | | procedure are in the | | | | PDT | | results section. | + +--------+ + + + | URINALYSIS | STAT | 08/03/2016 | | Results for this | | | | 2:03 PM | | procedure are in the | | | | PDT | | results section. | + +--------+ + + + | COMPREHENSIVE | STAT | 08/03/2016 | | Results for this | | METABOLIC PANEL | | 2:03 PM | | procedure are in the | | | | PDT | | results section. | + +--------+ + + + documented in this encounter Results Urinalysis (08/03/2016 2:03 PM PDT) + + + + + + | Component | Value | Ref Range | Performed | Pathologist | | | | | At | Signature | + + + + + + | Source | Clean Catch / VOID | | EXTERNAL | | | | | | LAB | | + + + + + + | Clarity | CLEAR | CLEAR | EXTERNAL | | | | | | LAB | | + + + + + + | Color | YELLOW | | EXTERNAL | | | | | | LAB | | + + + + + + | Specific | 1.01 | 1.005 - 1.030 | EXTERNAL | | | [place], | | | LAB | | | Urine | | | | | + + + + + + | pH, Urine | 8 | 5.0 - 7.0 pH | EXTERNAL | | | | | | LAB | | + + + + + + | Leukocyte | NEGATIVE | NEGATIVE /uL | EXTERNAL | | | Esterase, | | | LAB | | | Urine | | | | | + + + + + + | Nitrite, | NEGATIVE | NEGATIVE | EXTERNAL | | | Urine | | | LAB | | + + + + + + | Protein, | NEGATIVE | NEGATIVE mg/dL | EXTERNAL | | | Urine | | | LAB | | + + + + + + | Glucose, | NORMAL | NORMAL mg/dL | EXTERNAL | | | Urine | | | LAB | | + + + + + + | Reducing | NOT REQUIRED | | EXTERNAL | | | Substance, | | | LAB | | | UA, POC | | | | | + + + + + + | Ketones, | NEGATIVE | NEGATIVE mg/dL | EXTERNAL | | | Urine | | | LAB | | + + + + + + | Urobilinoge | NORMAL | NORMAL mg/dL | EXTERNAL | | | n, Urine | | | LAB | | + + + + + + | Bilirubin, | NEGATIVE | NEGATIVE mg/dL | EXTERNAL | | | Urine | | | LAB | | + + + + + + | Blood, | NEGATIVE | NEGATIVE /uL | EXTERNAL | | | Urine | | | LAB | | + + + + + + | WBC UA | NONE SEEN | </= 5 /HPF | EXTERNAL | | | | | | LAB | | + + + + + + | RBC COUNT | NONE SEEN | </= 5 PER HPF | EXTERNAL | | | | | | LAB | | + + + + + + | Bacteria, | NONE SEEN | NONE SEEN /HPF | EXTERNAL | | | UA | | | LAB | | + + + + + + | Culture | NO | | EXTERNAL | | | Indicated | | | LAB | | + + + + + + | SQUAMOUS | MODERATE | /LPF | EXTERNAL | | | EPITHELIAL | | | LAB | | | UA | | | | | + + + + + + + + | Specimen | + + | | + + + +---------+ + + | Performing | Address | City/State/Zipcode | Phone Number | | Organization | | | | + +---------+ + + | EXTERNAL LAB | | | | + +---------+ + + Comprehensive Metabolic Panel (08/03/2016 2:03 PM PDT) + +-------+ + + + | Component | Value | Ref Range | Performed | Pathologist | | | | | At | Signature | + +-------+ + + + | Sodium | 141 | 132 - 143 | EXTERNAL | | | | | mmol/L | LAB | | + +-------+ + + + | Potassium | 3.5 | 3.3 - 4.9 | EXTERNAL | | | | | mmol/L | LAB | | + +-------+ + + + | Cl | 106 | 95 - 108 mmol/L | EXTERNAL | | | | | | LAB | | + +-------+ + + + | CO2 | 28 | 23 - 34 mmol/L | EXTERNAL | | | | | | LAB | | + +-------+ + + + | Anion Gap | 7 | 7 - 16 | EXTERNAL | | | | | | LAB | | + +-------+ + + + | Calcium | 8.3 | 8.3 - 10.0 | EXTERNAL | | | | | mg/dL | LAB | | + +-------+ + + + | Glucose | 96 | 70 - 110 mg/dL | EXTERNAL | | | | | | LAB | | + +-------+ + + + | BUN, Bld | 8 | 5 - 26 mg/dL | EXTERNAL | | | | | | LAB | | + +-------+ + + + | Creatinine | 0.94 | 0.60 - 1.30 | EXTERNAL | | | | | mg/dL | LAB | | + +-------+ + + + | BUN/Creatin | 8.5 | 7.0 - 24.0 | EXTERNAL | | | ine Ratio | | RATIO | LAB | | + +-------+ + + + | GFR | 60 | >=60 | EXTERNAL | | | ESTIMATE | | mL/min/1.73m2 | LAB | | + +-------+ + + + | Bilirubin, | 0.4 | <=1.2 mg/dL | EXTERNAL | | | Total | | | LAB | | + +-------+ + + + | Protein, | 7.4 | 6.6 - 8.5 g/dL | EXTERNAL | | | Total | | | LAB | | + +-------+ + + + | Albumin | 4.2 | 3.0 - 4.5 g/dL | EXTERNAL | | | | | | LAB | | + +-------+ + + + | Alkaline | 49 | 46 - 116 U/L | EXTERNAL | | | Phosphatase | | | LAB | | + +-------+ + + + | ALT, | 20 | 14 - 59 U/L | EXTERNAL | | | External | | | LAB | | + +-------+ + + + | AST, | 12 | <=38 U/L | EXTERNAL | | | External | | | LAB | | + +-------+ + + + + + | Specimen | + + | | + + + +---------+ + + | Performing | Address | City/State/Zipcode | Phone Number | | Organization | | | | + +---------+ + + | EXTERNAL LAB | | | | + +---------+ + + CBC w/ Auto Differential (08/03/2016 2:03 PM PDT) + +-------+ + + + | Component | Value | Ref Range | Performed | Pathologist | | | | | At | Signature | + +-------+ + + + | WBC | 9.7 | 4.3 - 10.4 | EXTERNAL | | | | | 1000/mm3 | LAB | | + +-------+ + + + | RBC | 4.51 | 4.12 - 5.30 | EXTERNAL | | | | | mil/mm3 | LAB | | + +-------+ + + + | HGB, | 14.1 | 12.4 - 15.7 | EXTERNAL | | | External | | g/dL | LAB | | + +-------+ + + + | HCT, | 39.8 | 37.7 - 47.0 % | EXTERNAL | | | External | | | LAB | | + +-------+ + + + | MCV | 88 | 82 - 97 fl | EXTERNAL | | | | | | LAB | | + +-------+ + + + | MCH | 31.3 | 27.1 - 32.3 pg | EXTERNAL | | | | | | LAB | | + +-------+ + + + | MCHC | 35.4 | 32.0 - 36.9 | EXTERNAL | | | | | g/dL | LAB | | + +-------+ + + + | RDW-CV | 12 | <=17.0 % | EXTERNAL | | | | | | LAB | | + +-------+ + + + | Platelet | 196 | 150 - 450 | EXTERNAL | | | Count | | 1000/mm3 | LAB | | | Plasma | | | | | + +-------+ + + + | MPV | 9.9 | 9.4 - 12.3 FL | EXTERNAL | | | | | | LAB | | + +-------+ + + + | % Segmented | 67.9 | 42.0 - 76.0 % | EXTERNAL | | | | | | LAB | | | Neutrophils | | | | | + +-------+ + + + | LYMPH % | 26.4 | 20.0 - 40.0 % | EXTERNAL | | | | | | LAB | | + +-------+ + + + | % Monocytes | 5.7 | <=12.0 % | EXTERNAL | | | | | | LAB | | + +-------+ + + + | Absolute | 6.5 | 2.50 - 8.50 | EXTERNAL | | | Neutrophils | | 1000/mm3 | LAB | | + +-------+ + + + | Absolute | 2.6 | 1.00 - 3.80 | EXTERNAL | | | Lymphocytes | | 1000/mm3 | LAB | | + +-------+ + + + | Absolute | 0.6 | <=1.25 1000/mm3 | EXTERNAL | | | Monocytes | | | LAB | | + +-------+ + + + | SLIDE | NO | | EXTERNAL | | | REVIEW | | | LAB | | + [...]
--- OUTSIDE RECORDS SUMMARY | ~2019-10-09 | XMS | Encounter Summary ---
Demographics + + + | Address | [address] | | | [place] [address] | + + + | Home Phone | | + + + | Preferred Language | Unknown | + + + | Marital Status | | + + + | Yarsani Affiliation | 1013 | + + + | Race | Unknown | + + + | Ethnic Group | Unknown | + + + Author + + + | Author | [facility] | | | and [place] | + + + | Organization | [facility] | | | [...] Team Providers + +------+ + | Care Control Manager Name | Role | Phone | + +------+ + PCP | Unavailable | + +------+ + Encounter Details +--------+ + + + + | Date | Type | Department | Care Team | Description | +--------+ + + + + | 05/23/ | Hospital | [facility] | Beverly Rubio, | | | 2016 | Encounter | [facility] | BYPRODUCTS OPERATOR [address] | | | | | [address] [place] | [place] [address] | | | | | [place] | [phone] | | | | | [address] | | | | | | [phone] | | | +--------+ + + + [...] [place] | | | | | | [address] | | | | | | | | +--------+---------+ + + + documented as of this encounter Visit Diagnoses Not on filedocumented in this encounter"
--- OUTSIDE RECORDS SUMMARY | ~2019-10-09 | XMS | Encounter Summary ---
Demographics + + + | Address | [address] | | | [place] [address] | + + + | Home Phone [...] Team Providers + +------+ + | Care Primer Inserting Machine Operator Name | Role | Phone | + +------+ + | Abimbola Guerin DO | PCP | | + +------+ + Reason for Visit + + + | Reason | Comments | + + + | Lab Results | | + + + Encounter Details +--------+ + + + + | Date | Type | Department | Care Team | Description | +--------+ + + + + | 10/26/ | Telephone | [facility] | Gino Metzger | Lab Results | | 2017 | | [facility] | [address] | | | | | [address] | [address] | | | | | [address], | [facility], [place] | | | | | [place] [address] | [address] | | | | | [phone] | [phone] | | | | | | | [...]
--- OUTSIDE RECORDS SUMMARY | ~2019-10-09 | XMS | Encounter Summary ---
Demographics + + + | Address | [address] | | | [place] [address] | + + + | Home Phone [...] Team Providers + +------+ + | Care Account Strategist Name | Role | Phone | + [...] | | | | [place] | [address] | | | | | [address] | [phone] | | | | | [phone] | | | +--------+ + + + [...] [place] | | | | | | [address] | | | | | | | [...]
--- OUTSIDE RECORDS SUMMARY | ~2019-10-09 | XMS | Encounter Summary ---
Demographics + + + | Address | [address] | | | [place] [address] | + + + | Home Phone | | + + + | Preferred Language | Unknown | + + + | Marital Status | | + + + | Anglican Affiliation | 1013 | + + + | Race | Unknown | + + + | Ethnic Group | Unknown | + + + Author + + + | Author | [facility] | | | and [place] | + + + | Organization | [facility] | | [...] Team Providers + +------+ + | Care Professor Of Communication Name | Role | Phone | + +------+ + PCP | Unavailable | + +------+ + Encounter Details +--------+ + + + + | Date | Type | Department | Care Team | Description | +--------+ + + + + | 04/22/ | Hospital | [facility] | Ericka Hall | | | 2015 | Encounter | [facility] | Caryn, MANAGER TECHNICAL SUPPORT [address] | | | | | MEDICAL [facility] [address] | [facility], [place] | | | | | [address]TH [facility], | [address] | | | | | [place] [address] | [phone] | | | | | [phone] | | | +--------+ + + + [...] [place] | | | | | | [address] | | | | | | | | +--------+---------+ + + + documented as of this encounter Visit Diagnoses Not on filedocumented in this encounter"
--- OUTSIDE RECORDS SUMMARY | ~2019-10-09 | XMS | Encounter Summary ---
Demographics + + + | Address | [address] | | | [place] [address] | + + + | Home Phone [...] Team Providers + +------+ + | Care Printing Plate Clerk Name | Role | Phone | + [...] | | | MEDICAL CLIN[facility] [address] | [address] [place] | | | | [address] [place], | [place] [address] | | | | | [place] [address] | [phone] | | | | | [phone] | | | +--------+ + + + [...]
--- OUTSIDE RECORDS SUMMARY | ~2019-10-09 | XMS | Encounter Summary ---
Demographics + + + | Address | [address] | | | [place] [address] | + + + | Home Phone | | + + + | Preferred Language | Unknown | + + + | Marital Status | | + + + | Baptism Affiliation | 1013 | + + + | Race | Unknown | + + + | Ethnic Group | Unknown | + + + Author + + + | Author | [facility] | | | and [place] | + + + | Organization | [facility] | | | [...] Team Providers + +------+ + | Care Geophysical Support Specialist Name | Role | Phone | + +------+ + | Joseph Gilmore MD | PCP | | + +------+ + Reason for Visit + + + | Reason | Comments | + + + | Annual Exam | | + + + Encounter Details +--------+---------+ + + + | Date | Type | Department | Care Team | Description | +--------+---------+ + + + | 11/14/ | Office | [facility] | GilmoreJoseph, | Annual physical exam | | 2019 | Visit | [facility] | [address] | (Primary Dx); Chest | | | | [address] | [place], [place] | wall pain; Need for | | | | [place], [place] | [address] | vaccination | | | | [address] | | | | | | [phone] | | | +--------+---------+ + + + [...] + + + documented in this encounter Patient Instructions Patient Instructions Anneliese Muniz, [employer] Inspector - 10/05/2019 8:30 AM PSTFast ing Labs for cholesterol and Vitamin D Lab hours Wednesday-Wednesday 7Am-5:30pm documented in this encounter Progress Notes Joseph Gilmore MD - 10/05/2019 8:30 AM PSTFormatting of this note might be different fro m the original. Isha Escalante is a 33 y.o. female Chief Complaint: Annual Exam HPI Chest wall pain Has pain under right breast, feels like its in her ribcage states she has had a strained mu scle in that area previously. States she has been playing a lot of basketball lately. Annual Exam: Patient presents for annual exam. The patient is sexually active. last pap: was normal Patient's last menstrual period was 10/05/2011. control: IUD Breast lumps or tenderness: no, states theres pain under her right breast but feels like it s in the ribcage Vaginal pain or discharge: no Last pap: 10/19/2017 History of abnormal Pap: no STD screening: Declines Mammogram: 2015 Colonoscopy: Not of age The patient has regular exercise: yes. The patient reports that domestic violence in her life is absent. The patient wears seatbelts: yes. Complaints: none Immunizations: Immunization History Administered Date(s) Administered INFLUENZA PF QUAD(PED/ADOL/ADULT),PSKT or VIAL 10/05/2019 INFLUENZA PF TRIVALENT(PED/ADOL/ADULT), PSKT 08/31/2016 TDAP, (ADOL/ADULT) 10/05/2019 PREVENTIVE CARE/PRIOR VISITS - Any recommendations from Health Maintenance: Health Maintenance Due Topic Date Due Vaccine: Dtap/Tdap/Td (1 - Tdap) 2005 Vaccine: Influenza (1) 07/23/2019 Preventative Services TOPIC LAST DONE NEXT DUE Vaccine: Influenza 08/31/2016 07/23/2019 Cervical Cancer Screening (Pap) 10/19/2017 10/19/2022 Primary Care Outreach (Low Risk) 01/04/2019 01/04/2021 Vaccine: Dtap/Tdap/Td 2005 Allergies Allergen Reactions Cortisone Other (See Comments) Thyroid levels go down Lactose Intolerance (Gi) Latex Rash Neosporin Original [Pvqewkmrsn-Mrxodqeq-Aqvldlkip] Rash Medications: Patient Reported Taking Dosage cetirizine (ZYRTEC) 10 mg tablet (Taking) Take 10 mg by mouth Daily. levonorgestrel (MIRENA, 52 MG,) 20 MCG/24HR IUD (Taking) 1 Device by Intrauterine route on ce. Multiple Vitamin TABS (Taking) Take 1 tablet by mouth Daily. Past Medical History She has a past medical history of Anemia. Past Surgical History She has a past surgical history that includes intrauterine device insertion (11/03/2017). Family History: Her family history includes Arthritis in her paternal grandmother; Asthma in her mother and sister; Heart defect in her son and son; High blood pressure in her father and paternal gra ndfather; High cholesterol in her father; Miscarriages / stillbirths in her sister; No known problems in her sister; Other (see comment) in her maternal grandmother, sister, and sister ; Stroke in her maternal grandmother. Social History: Social History Socioeconomic History Marital status: Spouse name: Not on file Number of children: Not on file Years of education: Not on file Highest education level: Not on file Tobacco Use Smoking status: Never Smoker Smokeless tobacco: Never Used Substance and Sexual Activity Alcohol use: Yes Alcohol/week: 2.0 standard drinks Types: 2 Glasses of wine per week Comment: les than one a week Drug use: No Sexual activity: Yes Partners: Male control/protection: I.U.D. Review of Systems Constitutional: Negative for chills, fatigue and fever. HENT: Negative for sinus pressure and sinus pain. Eyes: Negative for pain and itching. Respiratory: Negative for chest tightness, shortness of breath and wheezing. Cardiovascular: Negative for chest pain and palpitations. Gastrointestinal: Negative for abdominal pain, nausea and vomiting. Endocrine: Negative for cold intolerance and heat intolerance. Genitourinary: Negative. Musculoskeletal: Negative for arthralgias and joint swelling. Skin: Negative. Allergic/Immunologic: Positive for food allergies. Neurological: Negative for dizziness, light-headedness and headaches. Hematological: Negative. Psychiatric/Behavioral: Negative. Objective: Vitals: 10/05/19 0834 BP: 98/60 Pulse: 94 Resp: 14 Temp: 36.9 C (98.4 F) TempSrc: Temporal SpO2: 97% Weight: 42.7 kg (94 lb 2.2 oz) Height: 1.555 m (5' 1.22") Body mass index is 17.66 kg/m. Physical Exam Constitutional: She is oriented to person, place, and time. She appears well-developed and well-nourished. No distress. HENT: Head: Normocephalic and atraumatic. Right Ear: Hearing, tympanic membrane, external ear and ear canal normal. Left Ear: Hearing, tympanic membrane, external ear and ear canal normal. Nose: Nose normal. Mouth/Throat: Oropharynx is clear and moist. No oropharyngeal exudate. Eyes: Pupils are equal, round, and reactive to light. Conjunctivae and EOM are normal. Righ t eye exhibits no discharge. Left eye exhibits no discharge. No scleral icterus. Neck: Trachea normal and normal range of motion. Neck supple. No JVD present. No tracheal d eviation present. No thyromegaly present. Cardiovascular: Normal rate, regular rhythm, normal heart sounds and intact distal pulses. Exam reveals no gallop and no friction rub. No murmur heard. Pulmonary/Chest: Effort normal and breath sounds normal. No respiratory distress. She has n o wheezes. She has no rales. She exhibits no deformity. Right breast exhibits no inverted ni pple, no mass, no nipple discharge, no skin change and no tenderness. Left breast exhibits n o inverted nipple, no mass, no nipple discharge, no skin change and no tenderness. Breasts a re symmetrical. Exam was chaperoned by team care staff Abdominal: Soft. Bowel sounds are normal. She exhibits no distension and no mass. There is no tenderness. There is no rebound and no guarding. Musculoskeletal: Normal range of motion. General: No tenderness or edema. Lymphadenopathy: She has no cervical adenopathy. She has no axillary adenopathy. Neurological: She is alert and oriented to person, place, and time. She has normal reflexes . No cranial nerve deficit. She exhibits normal muscle tone. Coordination normal. Skin: Skin is warm and dry. No rash noted. She is not diaphoretic. No erythema. Psychiatric: She has a normal mood and affect. Her behavior is normal. Judgment and thought content normal. Nursing note and vitals reviewed. Ortho Exam Results for orders placed or performed in visit on 10/05/19 POCT Urinalysis Result Value Ref Range Color, UA, POC Yellow Yellow, Light Yellow Clarity, UA, POC Clear Glucose, UA, POC Negative Negative Bilirubin, UA, POC Negative Negative Ketones, UA, POC Negative Negative, 100 mg/dL Specific [place], UA, POC 1.010 1.001 - 1.030 Blood, UA, POC Negative Negative pH, UA, POC 7.0 5.0, 6.0, 7.0, 8.0, 5.5, 6.5, 7.5 Protein, UA, POC Negative Negative Urobilinogen, UA, POC 0.2 mg/dL 0.2, Negative, Normal, < 0.2 mg/dL, 1 mg/dL, < 0.2 E.U./dl , 1.0 E.U./dL, 0.2 mg/dL Nitrite, UA, POC Negative Negative Leukocyte Esterase, UA, POC Negative Negative Reducing Substances, Urine Ictotest Remark Assessment: 1. Annual physical exam Lipid Panel Vitamin D, Deficiency Screen (25-Hydroxy) POCT Urinalysis 2. Chest wall pain 3. Need for vaccination Influenza *PF 3 yr or >, Quadrivalent PSKT or Vial Tdap vaccine greater than or equal to 7yo IM [[id number]] Plans: 1. Annual physical exam Performed annual exam, with breast exam patient in good health. LABS Advised patient on Fasting labs, water is fine. Gave lab hours of mon-fri 7am-5:30pm Cholesterol Vitamin d Labs will be done at patients convenience. Urine was ran today. - Lipid Panel; Future - Vitamin D, Deficiency Screen (25-Hydroxy); Future - POCT Urinalysis 2. Chest wall pain Pain reproduced when pressing on chest well. She thinks she probably stained this playing b [employer]. 3. Need for vaccination Vaccines were given today - Influenza *PF 3 yr or >, Quadrivalent PSKT or Vial - Tdap vaccine greater than or equal to 7yo IM [[id number]] Follow-up: yearly I, Anneliese Muniz, [employer] Inspector, am acting as a scribe on behalf of, and in the presence of MD Anneliese Akers, [employer] Inspector 10/05/2019 I, Dr. Joseph Gilmore, personally performed the services described in this documentation, as scribed in my presence and it is both accurate and complete. Joseph Gilmore MD 10/05/19 documented in this en counter Plan of Treatment +--------+---------+ + + + | Date | Type | Specialty | Care Team | Description | +--------+---------+ + + + | 10/10/ | Office | Family Medicine | Joseph Gilmore, | | | 2019 | Visit | | [address] | | | | | | [place] | | | | | | [address] | | | | | | | | +--------+---------+ + + + + +------+--------+ + + | Name | Type | Priori | Associated Diagnoses | Order Schedule | | | | ty | | | + +------+--------+ + + | Lipid Panel | Lab | Routin | Annual physical | Expected: | | | | e | exam | 10/05/2019, Expires: | | | | | | 10/04/2020 | + +------+--------+ + + | Vitamin D, | Lab | Routin | Annual physical | Expected: | | Deficiency Screen | | e | exam | 10/05/2019, Expires: | | (25-Hydroxy) | | | | 10/04/2020 | + +------+--------+ + + documented as of this encounter [...] + + documented in this encounter Results POCT Urinalysis (10/05/2019 9:18 AM PST) [...] 1.001 - 1.030 | | | | [place], | | | | | | UA, [...] + + | Urine | + + documented in this encounter Visit Diagnoses + + | Diagnosis | + + | Annual physical exam - Primary Routine general medical examination at [facility] | | facility | + + | Chest wall pain Painful respiration | + + | Need for vaccination Need for prophylactic vaccination and inoculation against | | unspecified single disease | + + documented in this encounter
--- OUTSIDE RECORDS SUMMARY | ~2019-10-09 | XMS | Encounter Summary ---
Demographics + + + | Address | [address] | | | [place] [address] | + + + | Home Phone [...] Team Providers + +------+ + | Care Commercial Designer Name | Role | Phone | + +------+ + PCP | Unavailable | + +------+ + Encounter Details +--------+ + + + + | Date | Type | Department | Care Team | Description | +--------+ + + + + | 01/19/ | Hospital | [facility] | Gino Metzger | | | 2011 | Encounter | [facility] | [address] | | | | | [address] [place] | [address] | | | | | [place] | [place] | | | | | [address] | [address] | | | | | [phone] | [phone] | | | | | | | [...] [place] | | | | | | [address] | | | | | | | | +--------+---------+ + + + documented as of this encounter Visit Diagnoses Not on filedocumented in this encounter"
--- OUTSIDE RECORDS SUMMARY | ~2019-10-09 | XMS | Encounter Summary ---
Demographics + + + | Address | [address] | | | [place] [address] | + + + | Home Phone | | + + + | Preferred Language | Unknown | + + + | Marital Status | | + + + | Yazdanism Affiliation | 1013 | + + + [...] Team Providers + +------+ + | Care Registered Pharmacy Technician Name | Role | Phone | + +------+ + PCP | Unavailable | + +------+ + Encounter Details +--------+ + + + + | Date | Type | Department | Care Team | Description | +--------+ + + + + | 03/02/ | [facility] | [facility] | Hao Dubon NP | | | 2014 | Encounter | [facility] | [address], | | | | | [address] | [place] [address] | | | | | [facility], | [phone] | | | | | [place] [address] | | | | | | [phone] | | | +--------+ + + + [...] [place] | | | | | | [address] | | | | | | | | +--------+---------+ + + + documented as of this encounter Visit Diagnoses Not on filedocumented in this encounter"
--- OUTSIDE RECORDS SUMMARY | ~2019-10-09 | XMS | Encounter Summary ---
Demographics + + + | Address | [address] | | | [place] [address] | + + + | Home Phone | | + + + | Preferred Language | Unknown | + + + | Marital Status | | + + + | Episcopalian Affiliation | 1013 | + + + | Race | Unknown | + + + | Ethnic Group | Unknown | + + + Author + + + | Author | [facility] | | | and [place] | + + + | Organization | [facility] | | | [...] Team Providers + +------+ + | Care Maid Housekeeper Name | Role | Phone | + +------+ + PCP | Unavailable | + +------+ + Encounter Details +--------+ + + + + | Date | Type | Department | Care Team | Description | +--------+ + + + + | 11/03/ | [facility] | [facility] | Hoa Dubon NP | | | 2013 | Encounter | [facility] | [address], | | | | | MEDICAL CL[address] | [place] [address] | | | | | [facility], | [phone] | | | | | [place] [address] | | | | | | [phone] | | | +--------+ + + + [...] [place] | | | | | | [address] | | | | | | | | +--------+---------+ + + + documented as of this encounter Visit Diagnoses Not on filedocumented in this encounter"
--- OUTSIDE RECORDS SUMMARY | ~2019-10-09 | XMS | Encounter Summary ---
Demographics + + + | Address | [address] | | | [place] [address] | + + + | Home Phone | | + + + | Preferred Language | Unknown | + + + | Marital Status | | + + + | Jewish Affiliation | 1013 | + + + [...] Team Providers + +------+ + | Care Medical Or Surgical Instrument Maker Name | Role | Phone | + +------+ + PCP | Unavailable | + +------+ + Encounter Details +--------+ + + + + | Date | Type | Department | Care Team | Description | +--------+ + + + + | 07/16/ | Hospital | [facility] | Epi Alfredo | | | 2006 | Encounter | [facility] | [address] [facility] | | | | | [facility] [address] | [place] | | | | | [place], | [address] | | | | | [place] [address] | | | | | | [phone] | | | +--------+ + + + [...] [place] | | | | | | [address] | | | | | | | | +--------+---------+ + + + documented as of this encounter Visit Diagnoses Not on filedocumented in this encounter"
--- OUTSIDE RECORDS SUMMARY | ~2019-10-09 | XMS | Encounter Summary ---
Demographics + + + | Address | [address] | | | [place] [address] | + + + | Home Phone [...] + | Author | [facility] | | | and [place] | + + + | Organization | [facility] | | | and [...] Team Providers + +------+ + | Care Fermentation Engineer Name | Role | Phone | [...] [place] | | | | | [address] | [address] | | | | | [phone] | [phone] | | | | | | | [...] [place] | | | | | | [address] | | | | | | | | +--------+---------+ + + + documented as of this encounter Visit Diagnoses Not on filedocumented in this encounter"
--- OUTSIDE RECORDS SUMMARY | ~2019-10-09 | XMS | Encounter Summary ---
Demographics + + + | Address | [address] | | | [place] [address] | + + + | Home Phone | | + + + | Preferred Language | Unknown | + + + | Marital Status | | + + + | Christian Affiliation | 1013 | + + + | Race | Unknown | + + + | Ethnic Group | Unknown | + + + Author + + + | Author | [facility] | | | and [place] | + + + | Organization | [facility] | | | [...] Providers + +------+ + | Care Industrial Illuminating Engineer Name | Role | Phone | [...] [place] | | | | | | [address] | (Fax) | | | | | [phone] | | | +--------+ + + + [...] [place] | | | | | | [id number] | | | | | | | | +--------+---------+ + + + documented as of this encounter Visit Diagnoses Not on filedocumented in this encounter"
--- OUTSIDE RECORDS SUMMARY | ~2019-10-09 | XMS | Encounter Summary ---
Demographics + + + | Address | [address] | | | [place] [address] | + + + | Home Phone | | + + + | Preferred Language | Unknown | + + + | Marital Status | | + + + | Presybeterian Affiliation | 1013 | + + + | Race | Unknown | + + + | Ethnic Group | Unknown | + + + Author + + + | Author | [facility] | | | and [place] | + + + | Organization | [facility] | | [...] Team Providers + +------+ + | Care Nailing Machine Feeder Name | Role | Phone | + +------+ + PCP | Unavailable | + +------+ + Encounter Details +--------+ + + + + | Date | Type | Department | Care Team | Description | +--------+ + + + + | 04/19/ | Hospital | [facility] | Gino Metzger | | | 2011 | Encounter | [facility] | [address] | | | | | [address] [place] | [address] | | | | | [place] | [place] | | | | | [address] | [address] | | | | | [phone] | [phone] | | | | | | | [...] [place] | | | | | | [address] | | | | | | | | +--------+---------+ + + + documented as of this encounter Visit Diagnoses Not on filedocumented in this encounter"
--- OUTSIDE RECORDS SUMMARY | ~2019-10-09 | XMS | Encounter Summary ---
Demographics + + + | Address | [address] | | | [place] [address] | + + + | Home Phone | | + + + | Preferred Language | Unknown | + + + | Marital Status | | + + + | Pentecostalism Affiliation | 1013 | + + + [...] Team Providers + +------+ + | Care Pantograph Operator Name | Role | Phone | [...] [place] | | | | | [address] | [address] | | | | | [phone] | [phone] | | | | | | | [...] [place] | | | | | | [address] | | | | | | | | +--------+---------+ + + + documented as of this encounter Visit Diagnoses Not on filedocumented in this encounter"
--- OUTSIDE RECORDS SUMMARY | ~2019-10-09 | XMS | Encounter Summary ---
Demographics + + + | Address | [address] | | | [place] [address] | + + + | Home Phone [...] Team Providers + +------+ + | Care Head Nurse Name | Role | Phone | + +------+ + PCP | Unavailable | + +------+ + Encounter Details +--------+ + + + + | Date | Type | Department | Care Team | Description | +--------+ + + + + | 11/18/ | [facility] | [facility] | Guerin[facility] | | | 2016 | Encounter | [facility] | [address] | | | | | MEDICAL CLIN[address] | [place] | | | | | [address] [facility], | [place] [address] | | | | | [place] [address] | [phone] | | | | | [phone] | | | +--------+ + + + [...] [place] | | | | | | [address] | | | | | | | | +--------+---------+ + + + documented as of this encounter Visit Diagnoses Not on filedocumented in this encounter"
--- OUTSIDE RECORDS SUMMARY | ~2019-10-09 | XMS | Encounter Summary ---
Demographics + + + | Address | [address] | | | [place] [address] | + + + | Home Phone | | + + + | Preferred Language | Unknown | + + + | Marital Status | | + + + | Confucianism Affiliation | 1013 | + + + | Race | Unknown | + + + | Ethnic Group | Unknown | + + + Author + + + | Author | [facility] | | | and Solit[place] | + + + | Organization | [facility] | | | [...] Team Providers + +------+ + | Care Dairy Nutrition Specialist Name | Role | Phone | + +------+ + PCP | Unavailable | + +------+ + Encounter Details +--------+ + + + + | Date | Type | Department | Care Team | Description | +--------+ + + + + | 08/10/ | Hospital | [facility] | Kristen Feldman | | | 2011 | Encounter | [facility] | [address] | | | | | [address] | [address] | | | | | [place] | [place] | | | | | [address] | [address] | | | | | [phone] | [phone] | | | | | | | [...] + + documented as of this encounter Progress Notes Tory Abebe - 08/10/2012 5:10 PM PDT PROCEDURE NOTE DATE OF SERVICE: 08/10/2012. PROCEDURE PERFORMED: Nonstress test. INDICATIONS: She comes in for a labor check. She was noted to be 3, 61 and jada in the clinic. Sh e was referred to labor and delivery. She was observed for more than two hours and her cerv ix made no change. PROCEDURE: The baby was monitored. The baseline heart rate was 150. There were good acceleration s consistent with reactive NST. There were no significant periodic decels. It is a reassuri ng reactive NST. Her contractions were approximately between 1 and 3 per 10, mild in nature. She is not in active labor. She was discharged with labor and mo vement precautions. [facility] Signed and Approved by: TORY ABEBE MD 08/11/2012 16:51:00 documented in this e ncounter Plan of Treatment +--------+---------+ + + + | Date | Type | Specialty | Care Team | Description | +--------+---------+ + + + | 10/10/ | Office | Family Medicine | Joseph Gilmore, | | | 2019 | Visit | | MD [address] | | | | | | [place] | | | | | | [id number] | | | | | | | | +--------+---------+ + + + documented as of this encounter Visit Diagnoses Not on filedocumented in this encounter"
--- OUTSIDE RECORDS SUMMARY | ~2019-10-09 | XMS | Encounter Summary ---
Demographics + + + | Address | [address] | | | [place] [address] | + + + | Home Phone | | + + + | Preferred Language | Unknown | + + + | Marital Status | | + + + | Buddhist Affiliation | 1013 | + + + | Race | Unknown | + + + | Ethnic Group | Unknown | + + + Author + + + | Author | [facility] | | | and Solitarioana | + + + | Organization | [facility] | | | [...] Team Providers + +------+ + | Care Transportation Associate Name | Role | Phone | + [...] | | | | [place] | [address] | | | | | [address] | [phone] | | | | | [phone] | | | +--------+ + + + [...] [place] | | | | | | [address] | | | | | | | [...] - 1.030 | EXTERNAL | | | [place], | | | LAB | | | [...]
--- OUTSIDE RECORDS SUMMARY | ~2019-10-09 | XMS | Encounter Summary ---
Demographics + + + | Address | [address] | | | [place] [address] | + + + | Home Phone [...] Team Providers + +------+ + | Care Counselor Nurses' Association Name | Role | Phone | + +------+ + PCP | Unavailable | + +------+ + Encounter Details +--------+ + + + + | Date | Type | Department | Care Team | Description | +--------+ + + + + | 07/15/ | Hospital | [facility] | [place], | | | 2015 | Encounter | [facility] | Avinash Pierre, | | | | | MEDICAL CLINIC Alysa | MD [address] | | | | | [address] [facility], | [place], [place] | | | | | [place] [address] | [address] | | | | | [phone] | [phone] | | | | | | | [...] [place] | | | | | | [address] | | | | | | | | +--------+---------+ + + + documented as of this encounter Visit Diagnoses Not on filedocumented in this encounter"
--- OUTSIDE RECORDS SUMMARY | ~2019-10-09 | XMS | Encounter Summary ---
Demographics + + + | Address | [address] | | | [place] [address] | + + + | Home Phone | | + + + | Preferred Language | Unknown | + + + | Marital Status | | + + + | Bahai Affiliation | 1013 | + + + | Race | Unknown | + + + | Ethnic Group | Unknown | + + + Author + + + | Author | [facility] | | | and Solitarioana | + + + | Organization | [facility] | | [...] Team Providers + +------+ + | Care Supervisor Press Room Name | Role | Phone | + +------+ + PCP | Unavailable | + +------+ + Encounter Details +--------+ + + + + | Date | Type | Department | Care Team | Description | +--------+ + + + + | 12/09/ | Hospital | [facility] | Jadyn Galeas, | | | 2016 | Encounter | [facility] | KILN REMOVER [address] | | | | | MEDICAL [facility] [address] | [place] [address] | | | | | [address] [place], | [phone] | | | | | [place] [address] | | | | | | [phone] | | | +--------+ + + + [...] [place] | | | | | | [address] | | | | | | | | +--------+---------+ + + + documented as of this encounter Visit Diagnoses Not on filedocumented in this encounter"
--- OUTSIDE RECORDS SUMMARY | ~2019-10-09 | XMS | Encounter Summary ---
Demographics + + + | Address | [address] | | | [place] [address] | + + + | Home Phone | | + + + | Preferred Language | Unknown | + + + | Marital Status | | + + + | Scientology Affiliation | 1013 | + + + | Race | Unknown | + + + | Ethnic Group | Unknown | + + + Author + + + | Author | [facility] | | | and Solitarioana | + + + | Organization | [facility] | | | [...] Team Providers + +------+ + | Care Digital Imaging Technician Name | Role | Phone | + +------+ + PCP | Unavailable | + +------+ + Encounter Details +--------+ + + + + | Date | Type | Department | Care Team | Description | +--------+ + + + + | 10/18/ | [facility] | Lucretia Monterroso | | | 2016 | Encounter | HOSPITAL EMERGENCY | C, FINANCIAL REPORTING ACCOUNTANT [address] | | | | | CENTER [address] | [place] | | | | | [place] | [address] | | | | | [address] | | | | | | [phone] | | | +--------+ + + + [...] [place] | | | | | | [address] | | | | | | | [...]
--- OUTSIDE RECORDS SUMMARY | ~2019-10-09 | XMS | Encounter Summary ---
Demographics + + + | Address | [address] | | | [place] [address] | + + + | Home Phone | | + + + | Preferred Language | Unknown | + + + | Marital Status | | + + + | Faith Affiliation | 1013 | + + + | Race | Unknown | + + + | Ethnic Group | Unknown | + + + Author + + + | Author | [facility] | | | and Solitarioana | + + + | Organization | [facility] | | | [...] Team Providers + +------+ + | Care Balance Engineer Name | Role | Phone | + +------+ + PCP | Unavailable | + +------+ + Encounter Details +--------+ + + + + | Date | Type | Department | Care Team | Description | +--------+ + + + + | 03/13/ | Hospital | [facility] | [place], | | | 2015 | Encounter | [facility] | Avinash Pierre, | | | | | MEDICAL CLINIC Alysa | MD [address] | | | | | [address] [facility], | [place], [place] | | | | | [place] [address] | [address] | | | | | [phone] | [phone] | | | | | | | [...] [place] | | | | | | [address] | | | | | | | | +--------+---------+ + + + documented as of this encounter Visit Diagnoses Not on filedocumented in this encounter"
--- OUTSIDE RECORDS SUMMARY | ~2019-10-09 | XMS | Encounter Summary ---
Demographics + + + | Address | [address] | | | [place] [address] | + + + | Home Phone | | + + + | Preferred Language | Unknown | + + + | Marital Status | | + + + | Hindu Affiliation | 1013 | + + + [...] Team Providers + +------+ + | Care Orthotics Prosthetics Technician Name | Role | Phone | [...] [place] | | | | | [address] | [address] | | | | | [phone] | [phone] | | | | | | | [...] [place] | | | | | | [address] | | | | | | | | +--------+---------+ + + + documented as of this encounter Visit Diagnoses Not on filedocumented in this encounter"
--- OUTSIDE RECORDS SUMMARY | ~2019-10-09 | XMS | Encounter Summary ---
Demographics + + + | Address | [address] | | | [place] [address] | + + + | Home Phone | | + + + | Preferred Language | Unknown | + + + | Marital Status | | + + + | Denominational Affiliation | 1013 | + + + | Race | Unknown | + + + | Ethnic Group | Unknown | + + + Author + + + | Author | [facility] | | | and Solit[place]ana | + + + | Organization | [facility] | | | and [...] Team Providers + +------+ + | Care Couturiere Name | Role | Phone | + +------+ + PCP | Unavailable | + +------+ + Encounter Details +--------+ + + + + | Date | Type | Department | Care Team | Description | +--------+ + + + + | 03/02/ | [facility] | [facility] M[facility] | Hao Dubon NP | | | 2014 | Encounter | [facility] | [address], | | | | | MEDICAL CLINIC [address] | [place] [address] | | | | | [address] [facility], | [phone] | | | | | [place] [address] | | | | | | [phone] | | | +--------+ + + + [...] [place] | | | | | | [address] | | | | | | | | +--------+---------+ + + + documented as of this encounter Visit Diagnoses Not on filedocumented in this encounter"
--- OUTSIDE RECORDS SUMMARY | ~2019-10-09 | XMS | Encounter Summary ---
Demographics + + + | Address | [address] | | | [place] [address] | + + + | Home Phone [...] Team Providers + +------+ + | Care Crop Pest Control Specialist Name | Role | Phone | [...] [place] | | | | | [address] | [address] | | | | | [phone] | [phone] | | | | | | | [...] [place] | | | | | | [address] | | | | | | | | +--------+---------+ + + + documented as of this encounter Visit Diagnoses Not on filedocumented in this encounter"
--- OUTSIDE RECORDS SUMMARY | ~2019-10-09 | XMS | Encounter Summary ---
Demographics + + + | Address | [address] | | | [place] [address] | + + + | Home Phone | | + + + | Preferred Language | Unknown | + + + | Marital Status | | + + + | Mormonism Affiliation | 1013 | + + + [...] Team Providers + +------+ + | Care House Moving Supervisor Name | Role | Phone | [...] | | | DR [address], | [facility] [place], [place] | | | | | [place] [address] | [address] | | | | | [phone] | | | | | | | [...]
--- OUTSIDE RECORDS SUMMARY | ~2019-10-09 | XMS | Encounter Summary ---
Demographics + + + | Address | [address] | | | [place] [address] | + + + | Home Phone | | + + + | Preferred Language | Unknown | + + + | Marital Status | | + + + | Mormonism Affiliation | 1013 | + + + | Race | Unknown | + + + | Ethnic Group | Unknown | + + + Author + + + | Author | [facility] | | | and Solitarioana | + + + | Organization | [facility] | | [...] Team Providers + +------+ + | Care Plywood Matcher Name | Role | Phone | + +------+ + PCP | Unavailable | + +------+ + Encounter Details +--------+ + + + + | Date | Type | Department | Care Team | Description | +--------+ + + + + | 07/29/ | Hospital | [facility] | Gino Metzger | | | 2011 | Encounter | [facility]PITAL [facility] | [address] | | | | | [address] | [address] | | | | | [place] | [place] | | | | | [address] | [address] | | | | | [phone] | | | | | | | [...] [place] | | | | | | [address] | | | | | | | | +--------+---------+ + + + documented as of this encounter Visit Diagnoses Not on filedocumented in this encounter"
--- OUTSIDE RECORDS SUMMARY | ~2019-10-09 | XMS | Encounter Summary ---
Demographics + + + | Address | [address] | | | [place] [address] | + + + | Home Phone | | + + + | Preferred Language | Unknown | + + + | Marital Status | | + + + | Restoration Affiliation | 1013 | + + + | Race | Unknown | + + + | Ethnic Group | Unknown | + + + Author + + + | Author | [facility] | | | and Solit[place]ana | + + + | Organization | [facility] | | | [...] Team Providers + +------+ + | Care Salvage Mechanic Name | Role | Phone | + +------+ + PCP | Unavailable | + +------+ + Encounter Details +--------+ + + + + | Date | Type | Department | Care Team | Description | +--------+ + + + + | 05/30/ | Hospital | [facility] | Gino Metzger | | | 2011 | Encounter | HOSPITAL LAB[facility] | [address] | | | | | [address] | [address] | | | | | [place] | [place] | | | | | [address] | [address] | | | | | [phone] | | | | | | | [...] [place] | | | | | | [address] | | | | | | | | +--------+---------+ + + + documented as of this encounter Visit Diagnoses Not on filedocumented in this encounter"
--- OUTSIDE RECORDS SUMMARY | ~2019-10-09 | XMS | Encounter Summary ---
Demographics + + + | Address | [address] | | | [place] [address] | + + + | Home Phone | | + + + | Preferred Language | Unknown | + + + | Marital Status | | + + + | Congregation Affiliation | 1013 | + + + [...] Team Providers + +------+ + | Care Landscape And Yardwork Laborer Name | Role | Phone | + [...] Description | +--------+---------+ + + + | 10/19/ | Office | [facility] | Yassine Gino | Encounter for annual | | 2017 | Visit | [facility] | [address] | routine | | | | CLINIC [address] | [address] | gynecological | | | | [address], | [place], [place] | examination (Primary | | | | [place] [address] | [address] | Dx); Cervical | | | | [phone] | [phone] | cancer screening | | | | | | | [...] + + + | Blood Pressure | 104/69 | 10/19/2017 2:24 PM | | | | | PST | | + + + + + | Pulse | 79 | 10/19/2017 2:24 PM | | | | | PST [...] + + + + | Weight | 43.5 kg (96 lb) | 10/19/2017 2:24 PM | | | | | PST | | + + + + + | Height | 154.9 cm (5' 1") | 10/19/2017 2:24 PM | | | | | PST | | + + + + + | Body Mass Index | 18.14 | 10/19/2017 2:24 PM | | | | | PST | | + + + + + documented in this encounter Progress Notes Raffi Mcgarry CC CMA - 10/19/2017 2:30 PM PSTCalled and left message asking pt to call back to go over negative lab results. Gino Silva MD - 10/19/2017 2:30 PM PSTPap and chyla mydia are negative Raffi Worthington CC CMA - 10/19/2017 2:30 PM PSTLetter Sent Gino Silva MD - 10/19/2017 2:30 PM PSTNeg pap Gino Mcdonnell MD - 10/19/2017 2:30 PM PSTFormatting of this note might be differen t from the original. Subjective: Patient ID: Isha Escalante is a 31 y.o. female. HPI No bleeding with mirena; desires replacement as has been in 5 years soon has a past medical history of Anemia. [...] in her maternal grandmother. Review of Systems Ros was conducted and was negative for headache or head trauma, thyroid problems, goitor, s hortness of breath, chest pain, cough, heart disease, high blood pressure, heart murmur, paul ast lumps, tenderness, nipple discharge, stomach pains, ulcers , vomiting blood, diarrhea, b loody stools, tarry stools, other bowel problems, hepatitis, jaundice, gallbladder, liver di sease, kidney stones, kidney infection, bladder infection, leaking urine, pelvic pain, pelvi c infection, infections of uterus, tubes or ovaries, herpes or other sexually transmitted di sease, abnormal pap, vaginal infections, sexual problems Objective: BP 104/69 | Pulse 79 | Ht 1.549 m (5' 1") | Wt 43.5 kg (96 lb) | BMI 18.14 kg/m Physical Exam Physical Exam Constitutional: She appears well-developed and well-nourished. Abdominal: Soft. Bowel sounds are normal. Genitourinary: Vagina normal and uterus normal. Breast no masses, nodes or discharge bilaterally Normal external female genitalia Vagina without lesion or discharge cx without lesion Uterus small nontender with iud string seen Adnexa no masses or tenderness Bus neg Assessment: Normal annual Plan: Pap and chylamydia, rtc 2 weeks replacement documented in th is encounter Plan of Treatment +--------+---------+ + + + | Date | Type | Specialty | Care Team | Description | +--------+---------+ + + + | 10/10/ | Office | Family Medicine | Joseph Gilmore, | | | 2019 | Visit | | MD [address] | | | | | | [place] | | | | | | [address] | | | | | | | | +--------+---------+ + + + documented as of this encounter Procedures + +--------+ + + + | Procedure Name | Priori | Date/Time | Associated Diagnosis | Comments | | | ty | | | | + +--------+ + + + | CWilma TRACHOMATIS AND | Routin | 10/19/2017 | Encounter for | Results for this | | N. GONORRHOEAE, NAAT | e | 2:44 PM | annual routine | procedure are in the | | ([facility]) | | PST | gynecological | results section. | | | | | examination | | + +--------+ + + + | PAP SMEAR | Routin | 10/19/2017 | Encounter for | Results for this | | | e | 12:00 AM | annual routine | procedure are in the | | | | PST | gynecological | results section. | | | | | examination | | + +--------+ + + + documented in this encounter Results C. trachomatis and N. gonorrhoeae, NAAT ([facility]) (10/19/2017 2:44 PM PST) + + + + + + | Component | Value | Ref Range | Performed | Pathologist | | | | | At | Signature | + + + + + + | Chlamydia | Not detected | Not detected | REFERENCE | | | trachomatis | | | LAB [facility] | | | rRNA PCR | | | DIAGNOSTICS | | | | | | - [place] | | | | | | PRICE | | + + + + + + | Neisseria | Not detectedComment: | Not detected | REFERENCE | | | gonorrhoeae | This test was performed | | LAB [facility] | | | rRNA PCR | using the [facility] | | DIAGNOSTICS | | | | COMBO2(R) Assay | | - JONES | | | | (GEN-PROBE(R)). The | | PRICE | | | | analytical performance | | | | | | characteristics of this | | | | | | assay, when used to test | | | | | | SurePath(R) specimens | | | | | | have been determined by | | | | | | [facility]. @ | | | | | | Test Performed By: | | | | | | [facility] | | | | | | [facility] | | | | | | Jeffrey Hollingsworth M.D., | | | | | | CORK[place]., Laboratory | | | | | | [facility] [address] | | | | | | [facility] | | | | | | [place] [address] | | | | | | KEVIN #[id number] | | | | + + + + + + + + | Specimen | + + | Genital - Female | | genital tract | | structure (body | | structure) | + + + + + | Narrative | Performed At | + + + | Performing Organization Information: Site ID: [facility] | REFERENCE LAB | | TRACHOMATIS/NEISSERIA GONORRHOEAE RNA, TMA Name: | [facility] | | Address: , Director: | DIAGNOSTICS - | | | KAREN | | | PRICE | + + + + + + + + | Performing | Address | City/State/Zipcode | Phone Number | | Organization | | | | + + + + + | REFERENCE LAB | [address] [facility] | [place], [place] | | | [facility] - | | [address] | | | [place] | | | | + + + + + Pap Smear (10/19/2017 12:00 AM PST) + + | Specimen | + + | Cytology | + + + + + | Narrative | Performed At | + + + | Ordering Provider Gino METZGER CC Provider LG - BMP Web | [facility] | | Community /W Collected Date [id number] Received Date 20171020 | [facility] | | Completed Date 20171021 Specimen Source: Liquid base - cervical | | | Number of Slides: 1 Menstrual Status Cycle Not Indicated Clinical | | | History: LMP: IUD Cytopathologic Diagnosis: Negative for | | | Intraepithelial Lesion or Malignancy Specimen Adequacy: Satisfactory | | | for evaluation. Specimen Adequacy: Transformation zone component | | | present Comment: Repeat smear at your discretion. Comment: | | | Specimen processed successfully by [employer] Slide Check Inspector, [place] | | | [facility], [facility]. History: [id number] 10/26/14 | | | Negative for Intraepithelial Lesion or [id number] | | | 10/24/13 Negative for Intraepithelial Lesion or | | | [id number] 01/19/12 Negative for Intraepithelial | | | Lesion or Malignancy Disclaimer The pap smear is not a diagnostic | | | procedure and should not be used as the sole means to detect cervical | | | cancer. It is only a screening procedure to aid in the detection of | | | cervical cancer. Both false-negative and false-positive results have | | | been experienced. User 1 Lab PERFORMING | | | LABORATORY: Tissue processing and slide preparation were performed by | | | [facility], [address] [place] [address] . | | | Professional interpretation was performed by [facility], | | | [facility] [address] [place] [address]. | | + + + + +---------+ + + | Performing | Address | City/State/[facility] | Phone Number | | Organization | | | | + +---------+ + + | [facility] | | | | | [facility] | | | | + +---------+ + + documented in this encounter Visit Diagnoses + + | Diagnosis | + + | Encounter for annual routine gynecological examination - Primary | + + | Cervical cancer screening Screening for malignant neoplasm of the cervix | + + documented in this encounter
--- OUTSIDE RECORDS SUMMARY | ~2019-10-09 | XMS | Encounter Summary ---
Demographics + + + | Address | [address] | | | [place] [address] | + + + | Home Phone [...] + + | Author | [facility] | | | and Solitarioana | + + + | Organization | [facility] | | | and [...] Team Providers + +------+ + | Care Gluer And Wedger Name | Role | Phone | + [...] examination (Primary | | | | [place] [address] | [address] | Dx); Cervical | | | | [phone] | [phone] | cancer screening | | | | [...] [place] | | | | | | [address] | | | | | | | [...] | | | | | | - [place] | | | | | | PRICE [...] Diagnostics | | | | | | [facility] | | | | | | Jeffrey Hollingsworth M.D., | | | | | | CORKY., Laboratory | | | | | | [facility] [address] | | | | | | [facility] | | | | | | [place] [address] | | | | | | KEVIN #[id number] | | | | + + + [...] + + + | REFERENCE LAB | [address] [facility] | [place], [place] | | | [facility] - | | [address] | | | [place] | | [...] | | | Specimen processed successfully by [employer] Slide Lead Designer, BD | | | [facility], [facility]. History: [id number] 10/26/14 | | | Negative for Intraepithelial Lesion or [id number] | | | 10/24/13 Negative for Intraepithelial Lesion or | | | [id number] 01/19/12 Negative for Intraepithelial | | | [...] preparation were performed by | | | [facility], [address] [place] [address] . | | | Professional interpretation was performed by [facility], | | | [facility] [address] [place] [address]. | | + + + + +---------+ + + | Performing | Address | City/State/[facility] | Phone Number | | Organization | [...]
--- OUTSIDE RECORDS SUMMARY | ~2019-10-09 | XMS | Encounter Summary ---
Demographics + + + | Address | [address] | | | [place] [address] | + + + | Home Phone | | + + + | Preferred Language | Unknown | + + + | Marital Status | | + + + | Congregational Affiliation | 1013 | + + + [...] Team Providers + +------+ + | Care Technology Recruiter Name | Role | Phone | + +------+ + | Abimbola Guerin DO | PCP | | + +------+ + Reason for Referral Diagnostic/Screening (Routine) +--------+--------+ + + + + | Status | Reason | Specialty | Diagnoses / | Referred By | Referred To | | | | | Procedures | Contact | Contact | +--------+--------+ + + + + | Closed | | | Diagnoses | [place], | [facility] | | | | | Family | Abimbola Bhatti | SYLVIE | | | | | history of | DO [address] | HOSPITAL | | | | | bicuspid | [address] [place] | [address] | | | | | aortic valve | [place], [place] | AVE | | | | | Procedures | [address] | [place] | | | | | ECHO | Phone: | [phone] | | | | | Complete | [phone] | Phone: | | | | | | Fax: | [phone] | | | | | | [phone] | Fax: | | | | | | | [phone] | +--------+--------+ + + + + Reason for Visit + + + | Reason | Comments | + + + | Follow-up | | + + + Encounter Details +--------+---------+ + + + | Date | Type | Department | Care Team | Description | +--------+---------+ + + + | 04/26/ | Office | [facility] | Abimbola Guerin | Family history of | | 2018 | Visit | [facility] | DO [address] | bicuspid aortic | | | | [facility] | [address] [place] | valve (Primary Dx) | | | | [address] [place], | [place] [address] | | | | | [place] [address] | [phone] | | | | | [phone] | | | +--------+---------+ + + + [...] + + + | Blood Pressure | 94/67 | 04/26/2018 4:19 PM | left arm, med cuff | | | | PDT | | + + + + + | Pulse | 77 | 04/26/2018 4:19 PM | REG | | | | PDT | | + + + + + | Temperature | 37.2 C (98.9 F) | 04/26/2018 4:19 PM | | | | | PDT | | + + + + + | Respiratory Rate | 16 | 04/26/2018 4:19 PM | | | | | PDT | | + + + + + | Oxygen Saturation | 99% | 04/26/2018 4:19 PM | RA | | | | PDT | | + + + + + | Inhaled Oxygen | - | - | | | Concentration | | | | + + + + + | Weight | 43.8 kg (96 lb 9.6 | 04/26/2018 4:19 PM | | | | oz) | PDT | | + + + + + | Height | 154.9 cm (5' 1") | 04/26/2018 4:19 PM | | | | | PDT | | + + + + + | Body Mass Index | 18.25 | 04/26/2018 4:19 PM | | | | | PDT | | + + + + + documented in this encounter Progress Abimbola Ramirez, DO - 04/26/2018 4:00 PM PDT Patient ID: Isha Escalante is a 32 y.o. year old female Chief Complaint: Chief Complaint Patient presents with Follow-up Assessment and Plan: Family history of bicuspid aortic valve Echocardiogram ordered. EKG from ER visit yesterday reviewed and normal. Costochondritis -Ibuprofen and heat Subjective: Patient presents to the clinic for an ER follow up. Yesterday she went to the ER with chest pain/tenderness. The cardiac workup was negative an d thought that she strained a muscle from painting. She used heat on the area last night and felt some minor relief. She states that both of her children have a bicuspid aortic valve. Per the children's docto r's request, her had an echo done and was negative. She would like to also be checke d. Allergies: Allergies Allergen Reactions Cortisone Other (See Comments) Thyroid levels go down Xznsnfsccp-Wnzhqtgn-Kqyychxfj Rash Latex Rash Medications: Current Outpatient Prescriptions Medication Sig Dispense Refill levonorgestrel (MIRENA, 52 MG,) 20 MCG/24HR IUD 1 Device by Intrauterine route once. No current facility-administered medications for this visit. Problem List: Patient Active Problem List Diagnosis Family planning Encounter for annual routine gynecological examination Social History: Social History Social History Marital status: Spouse name: N/A Number of children: N/A Years of education: N/A Occupational History Not on file. Social History Main Topics Smoking status: Never Smoker Smokeless tobacco: Never Used Alcohol use 1.2 oz/week 2 Glasses of wine per week Drug use: No Sexual activity: Yes Partners: Male control/ protection: IUD Other Topics Concern Not on file Social History Narrative No narrative on file Family History: Family History Problem Relation Age of Onset No Known Problems Mother No Known Problems Father Other (see comment) Sister Cohlitis Other (see comment) Maternal Grandmother diverticulitus Stroke Maternal Grandmother No Known Problems Sister No Known Problems Sister Heart defect Son Heart defect Son Review of Systems Constitutional: Negative. Psychiatric/Behavioral: Negative. Objective: Vitals: BP 94/67 Comment: left arm, med cuff | Pulse 77 Comment: REG | Temp 37.2 C (98.9 F) (Te mporal) | Resp 16 | Ht 1.549 m (5' 1") | Wt 43.8 kg (96 lb 9.6 oz) | SpO2 99% Comment: R A | BMI 18.25 kg/m Physical Exam Constitutional: She is oriented to person, place, and time. She appears well-developed and well-nourished. HENT: Head: Normocephalic and atraumatic. Cardiovascular: Normal rate, regular rhythm and normal heart sounds. No murmur heard. Pulmonary/Chest: Effort normal and breath sounds normal. Neurological: She is alert and oriented to person, place, and time. Psychiatric: She has a normal mood and affect. Her behavior is normal. Judgment and thought content normal. Entered by Laura Paz CNA 2, [facility], acting as scribe for Dr. Guerin, DO The documentation recorded by the scribe accurately reflects the service I personally perfo ed and the decisions made by me. Electronically signed by: Abimbola Guerin DO 04/26/2018 16:26 Note: Part of this report was transcribed using voice recognition software. Every effort wa s made to ensure accuracy. However, inadvertent computerized aviation maintenance instructor errors may be pre sent. documented in this encounter Plan of Treatment +--------+---------+ + + + | Date | Type | Specialty | Care Team | Description | +--------+---------+ + + + | 10/10/ | Office | Family Medicine | Josehp Gilmore, | | | 2019 | Visit | | MD Edson [address] | | | | | | [place] | | | | | | [id number] | | | | | | | | +--------+---------+ + + + + + +--------+ + + | Name | Type | Priori | Associated Diagnoses | Order Schedule | | | | ty | | | + + +--------+ + + | ECHO Complete | Echocardiog | Routin | Family history of | Expected: | | | alex | e | bicuspid aortic | 04/26/2018, Expires: | | | | | valve | 04/26/2019 | + + +--------+ + + documented as of this encounter Visit Diagnoses + + | Diagnosis | + + | Family history of bicuspid aortic valve - Primary Family history of other | | cardiovascular diseases | + + documented in this encounter
--- OUTSIDE RECORDS SUMMARY | ~2019-10-09 | XMS | Encounter Summary ---
Demographics + + + | Address | [address] | | | [place] [address] | + + + | Home Phone | | + + + | Preferred Language | Unknown | + + + | Marital Status | | + + + | Moravian Affiliation | 1013 | + + + | Race | Unknown | + + + | Ethnic Group | Unknown | + + + Author + + + | Author | [facility] | | | and [place] | + + + | Organization | [facility] | | [...] Team Providers + +------+ + | Care Tile Trimmer Name | Role | Phone | + +------+ + PCP | Unavailable | + +------+ + Encounter Details +--------+ + + + + | Date | Type | Department | Care Team | Description | +--------+ + + + + | 05/23/ | Hospital | [facility] | Beverly Rubio, | | | 2016 | Encounter | [facility] | DOCK CLERK [address] [place] | | | | | [address] [place] | [place] [address] | | | | | [place] | [phone] | | | | | [address] | | | | | | [phone] | | | +--------+ + + + [...] [place] | | | | | | [address] | | | | | | | | +--------+---------+ + + + documented as of this encounter Visit Diagnoses Not on filedocumented in this encounter"
--- OUTSIDE RECORDS SUMMARY | ~2019-10-09 | XMS | Encounter Summary ---
Demographics + + + | Address | [address] | | | [place] [address] | + + + | Home Phone [...] + + | Author | [facility] | | | and [place] | + + + | Organization | [facility] | | [...] Team Providers + +------+ + | Care Living Specialist Name | Role | Phone | + +------+ + PCP | Unavailable | + +------+ + Encounter Details +--------+ + + + + | Date | Type | Department | Care Team | Description | +--------+ + + + + | 03/13/ | Hospital | [facility] | [place], | | | 2015 | Encounter | [facility] | Avinash Pierre, | | | | | [facility] | MD [address] | | | | | [address] [facility], | [place], [place] | | | | | [place] [address] | [address] | | | | | [phone] | [phone] | | | | | | | [...] [place] | | | | | | [address] | | | | | | | | +--------+---------+ + + + documented as of this encounter Visit Diagnoses Not on filedocumented in this encounter"
--- OUTSIDE RECORDS SUMMARY | ~2019-10-09 | XMS | Encounter Summary ---
Demographics + + + | Address | [address] | | | [place] [address] | + + + | Home Phone [...] Team Providers + +------+ + | Care Network Lead Name | Role | Phone | + [...] | | 2019 | Visit | [facility] | [address] | (Primary Dx); Chest | | | | [address] | [place], [place] | wall pain; Need for | | | | [place], [place] | [address] | vaccination | | | | [address] | | | | | | [phone] | | | +--------+---------+ + + + [...] encounter Patient Instructions Patient Instructions Anneliese Muniz, Adobe Architect - 10/05/2019 8:30 AM PSTFast ing Labs [...] Lactose Intolerance (Gi) Latex Rash Neosporin Original [Gtyjfmjerq-Audhbbqm-Fkhsksrka] Rash Medications: Patient Reported Taking Dosage cetirizine [...] UA, POC Negative Negative, 100 mg/dL Specific [place], UA, POC 1.010 1.001 - 1.030 Blood, [...] greater than or equal to 7yo IM [85581] Plans: 1. Annual physical exam Performed annual [...] thinks she probably stained this playing b Derby[employer]potetball. 3. Need for vaccination Vaccines were given today - Influenza *PF 3 yr or >, Quadrivalent PSKT or Vial - Tdap vaccine greater than or equal to 7yo IM [[id number]] Follow-up: yearly I, Anneliese Muniz, Adobe Architect, am acting as a scribe on behalf of, and in the presence of MD Anneliese Akers, Adobe Architect 10/05/2019 I, Dr. Joseph Gilmore, personally performed [...] [place] | | | | | | [address] | | | | | | | [...] 1.001 - 1.030 | | | | [place], | | | | | | UA, [...] - Primary Routine general medical examination at [facility] | | facility | + + | Chest wall pain Painful respiration | + + | Need for vaccination Need for prophylactic vaccination and inoculation against | | unspecified single disease | + + documented in this encounter
--- OUTSIDE RECORDS SUMMARY | ~2019-10-09 | XMS | Encounter Summary ---
Demographics + + + | Address | [address] | | | [place] [address] | + + + | Home Phone | | + + + | Preferred Language | Unknown | + + + | Marital Status | | + + + | Latter-Day Affiliation | 1013 | + + + | Race | Unknown | + + + | Ethnic Group | Unknown | + + + Author + + + | Author | [facility] | | | and [place] | + + + | Organization | [facility] | | | [...] Team Providers + +------+ + | Care Flight Operation Coordinator Name | Role | Phone | + +------+ + PCP | Unavailable | + +------+ + Encounter Details +--------+ + + + + | Date | Type | Department | Care Team | Description | +--------+ + + + + | 07/16/ | Hospital | [facility] | Epi Alfredo | | | 2006 | Encounter | [facility] | MD [address] [facility] | | | | | [facility] [address] | [place] | | | | | [place], | [address] | | | | | [place] [address] | | | | | | [phone] | | | +--------+ + + + [...] [place] | | | | | | [address] | | | | | | | | +--------+---------+ + + + documented as of this encounter Visit Diagnoses Not on filedocumented in this encounter"
--- OUTSIDE RECORDS SUMMARY | ~2019-10-09 | XMS | Encounter Summary ---
Demographics + + + | Address | [address] | | | [place] [address] | + + + | Home Phone | | + + + | Preferred Language | Unknown | + + + | Marital Status | | + + + | Gnosticist Affiliation | 1013 | + + + | Race | Unknown | + + + | Ethnic Group | Unknown | + + + Author + + + | Author | [facility] | | | and [place] | + + + | Organization | [facility] | | | [...] Team Providers + +------+ + | Care Cutting Machine Tender Helper Name | Role | Phone | + [...] | 2017 | | HOSPITAL EM[facility]Y | DOWEL SANDER OPERATOR [address] | encounter (Primary | | | | CENTER [address] | [address] [place] | Dx) | | | | [address] [place] | [address] | | | | | [address] | | | | | | [phone] | | | +--------+ + + + [...] through Care Everywhere.Falls, Preventi ng, Staying Active (Ghanaian)documented in this encounter Plan of Treatment +--------+---------+ + + + | Date | Type | Specialty | Care Team | Description | +--------+---------+ + + + | 10/10/ | Office | Family Medicine | Joseph Gilmore, | | | 2019 | Visit | | MD [address] | | | | | | [place] | | | | | | [phone] | | | | | | | | +--------+---------+ + + + documented as of this encounter Visit Diagnoses + + | Diagnosis | + + | Fall, initial encounter - Primary | + + documented in this encounter
--- OUTSIDE RECORDS SUMMARY | ~2019-10-09 | XMS | Encounter Summary ---
Demographics + + + | Address | [address] | | | [place] [address] | + + + | Home Phone [...] Providers + +------+ + | Care Machine Filler Name | Role | Phone | + +------+ + PCP | Unavailable | + +------+ + Encounter Details +--------+ + + + + | Date | Type | Department | Care Team | Description | +--------+ + + + + | 10/11/ | [facility] | [facility] | Hao Dubon NP | | | 2013 | Encounter | [facility] | [address], | | | | | MEDICAL CL[facility] [address] | [place] [address] | | | | | [facility], | [phone] | | | | | [place] [address] | | | | | | [phone] | | | +--------+ + + + [...] [place] | | | | | | [address] | | | | | | | | +--------+---------+ + + + documented as of this encounter Visit Diagnoses Not on filedocumented in this encounter"
--- OUTSIDE RECORDS SUMMARY | ~2019-10-09 | XMS | Encounter Summary ---
Demographics + + + | Address | [address] | | | [place] [address] | + + + | Home Phone | | + + + | Preferred Language | Unknown | + + + | Marital Status | | + + + | Mandaeism Affiliation | 1013 | + + + | Race | Unknown | + + + | Ethnic Group | Unknown | + + + Author + + + | Author | [facility] | | | and [place] | + + + | Organization | [facility] | | [...] Team Providers + +------+ + | Care Associate Media Planner Name | Role | Phone | + [...] [place] | | | | | [address] | [address] | | | | | [phone] | [phone] | | | | | | | [...] [place] | | | | | | [place] | | | | | | [address] | | | | | | | | +--------+---------+ + + + documented as of this encounter Visit Diagnoses Not on filedocumented in this encounter"
--- OUTSIDE RECORDS SUMMARY | ~2019-10-09 | XMS | Encounter Summary ---
Demographics + + + | Address | [address] | | | [place] [address] | + + + | Home Phone [...] Team Providers + +------+ + | Care Merchandise Handler Name | Role | Phone | [...] | | [address] [place] | [facility] [place] | | | | | [place] | [address] | | | | | [address] | [phone] | | | | | [phone] | | | +--------+ + + + [...] [place] | | | | | | [address] | | | | | | | | +--------+---------+ + + + documented as of this encounter Visit Diagnoses Not on filedocumented in this encounter"
--- OUTSIDE RECORDS SUMMARY | ~2019-10-09 | XMS | Encounter Summary ---
Demographics + + + | Address | [address] | | | [place] [address] | + + + | Home Phone [...] Team Providers + +------+ + | Care Delivery Architect Name | Role | Phone | + [...] | | | | [place] | [address] | | | | | [address] | [phone] | | | | | [phone] | | | +--------+ + + + [...] [place] | | | | | | [address] | | | | | | | [...] finding identified. Job #: | | | [id number] Read By: FLAVIO YOUNG MD Released By: [...] limits. IMPRESSION:No acute finding identified. Job #: [id number] Read By: | | FLAVIO YOUNG MD [...]
--- OUTSIDE RECORDS SUMMARY | ~2019-10-09 | XMS | Encounter Summary ---
Demographics + + + | Address | [address] | | | [place] [address] | + + + | Home Phone | | + + + | Preferred Language | Unknown | + + + | Marital Status | | + + + | Orthodoxy Affiliation | 1013 | + + + | Race | Unknown | + + + | Ethnic Group | Unknown | + + + Author + + + | Author | [facility] | | | and [place] | + + + | Organization | [facility] | | | and [...] Team Providers + +------+ + | Care Site Worker Name | Role | Phone | + +------+ + PCP | Unavailable | + +------+ + Encounter Details +--------+ + + + + | Date | Type | Department | Care Team | Description | +--------+ + + + + | 06/30/ | Hospital | [facility] | | | | 2006 | Encounter | [facility] | | | | | | [facility] [address] | | | | | | [place], | | | | | | [place] [address] | | | | | | [phone] | | | +--------+ + + + [...] [place] | | | | | | [address] | | | | | | | | +--------+---------+ + + + documented as of this encounter Visit Diagnoses Not on filedocumented in this encounter"
--- OUTSIDE RECORDS SUMMARY | ~2019-10-09 | XMS | Encounter Summary ---
Demographics + + + | Address | [address] | | | [place] [address] | + + + | Home Phone | | + + + | Preferred Language | Unknown | + + + | Marital Status | | + + + | Baptist Affiliation | 1013 | + + + | Race | Unknown | + + + | Ethnic Group | Unknown | + + + Author + + + | Author | [facility] | | | and [place] | + + + | Organization | [facility] | | | [...] Providers + +------+ + | Care Senior Case Manager Name | Role | Phone | [...] [place] | | | | | [address] | [address] | | | | | [phone] | [phone] | | | | | | | [...] [place] | | | | | | [address] | | | | | | | | +--------+---------+ + + + documented as of this encounter Visit Diagnoses Not on filedocumented in this encounter"
--- OUTSIDE RECORDS SUMMARY | ~2019-10-09 | XMS | Encounter Summary ---
Demographics + + + | Address | [address] | | | [place] [address] | + + + | Home Phone [...] Team Providers + +------+ + | Care Sr. Director Name | Role | Phone | + +------+ + | Joseph Gilmore MD | PCP | | + +------+ + Reason for Visit + + + | Reason | Comments | + + + | Establish Care | | + + + Encounter Details +--------+---------+ + + + | Date | Type | Department | Care Team | Description | +--------+---------+ + + + | 01/04/ | Office | [facility] | [place], | Dairy allergy | | 2019 | Visit [facility] | [address] | (Primary Dx); | | | | [address] | [place] | Environmental | | | | [place], [place] | [address] | allergies; Breast | | | | [address] | | mass, right; Milk | | | | [phone] | | allergy | +--------+---------+ + + + Social History [...] + + + | Blood Pressure | 104/70 | 01/04/2019 8:56 AM | | | | | PST | | + + + + + | Pulse | 84 | 01/04/2019 8:56 AM | | | | | PST | | + + + + + | Temperature | 36.8 C (98.3 F) | 01/04/2019 8:56 AM | | | | | PST | | + + + + + | Respiratory Rate | 14 | 01/04/2019 8:56 AM | | | | | PST | | + + + + + | Oxygen Saturation | 96% | 01/04/2019 8:56 AM | | | | | PST | | + + + + + | Inhaled Oxygen | - | - | | | Concentration | | | | + + + + + | Weight | 43.5 kg (96 lb) | 01/04/2019 8:56 AM | | | | | PST | | + + + + + | Height | 154.9 cm (5' 1") | 01/04/2019 8:56 AM | | | | | PST | | + + + + + | Body Mass Index | 18.14 | 01/04/2019 8:56 AM | | | | | PST | | + + + + + documented in this encounter Progress Notes Joseph Gilmore MD - 01/04/2019 8:30 AM PSTFormatting of this note might be different fro m the original. Isha Escalante is a 33 y.o. female Chief Complaint: Establish Care HPI Isha is here to establish care. Moved here from [facility] last April. 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 She is to Bj who is a vamp throater. They have 2 children both boys. Ages 11 and 6. They enjoy basketball, camping, hiking, reading and shopp ing. Patient also runs every day runs in side when weather is like this. 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 Is much better now. Would like to discuss food intolerances. Can handle a daily small amount of cheese. Other w ise develops severe pain and diarrhea with any consumption of milk. Right breast density/mass has had to have a mammogram. She felt a lump went in for exam. H er physician ordered a ultra sound and mammogram was thought to be dense breast tissue. Did have infection when nursing in 2011 -2012 in that right breast. Was told if noticed any champion ges to let them know. Both sons have bicuspid aortic valve but she does not. Normal pap smear in 09/2017 Normal mammogram 04/2017. Sinus allergies: limits sugars takes daily Zyrtec, uses Flonase if she feels like something is coming on will use it daily for a couple of weeks PREVENTIVE CARE/PRIOR VISITS - Any recommendations from Health Maintenance: Health Maintenance Due Topic Date Due PRIMARY CARE OUTREACH-LOW RISK EVERY 2 YEARS 1986 Vaccine: Dtap/Tdap/Td (1 - Tdap) 2005 Vaccine: Influenza (1) 07/23/2018 Preventative Services TOPIC LAST DONE NEXT DUE Vaccine: Influenza 08/31/2016 07/23/2018 Cervical Cancer Screening (Pap) 10/19/2017 10/19/2022 Primary Care Outreach-Low Risk Every 2 Years 1986 Vaccine: Dtap/Tdap/Td 2005 Allergies Allergen Reactions Cortisone Other (See Comments) Thyroid levels go down Lactose Intolerance (Gi) Dmelszuezi-Oummxlfl-Ifoxltdzr Rash Latex Rash Medications: Patient Reported Taking Dosage cetirizine (ZYRTEC) 10 mg tablet (Taking) Take 10 mg by mouth Daily. levonorgestrel (MIRENA, 52 MG,) 20 MCG/24HR IUD (Taking) 1 Device by Intrauterine route o nce. Multiple Vitamin TABS (Taking) Take 1 tablet [...] Miscarriages / stillbirths in her sister; No Known Problems in her sister; Other (see comment) in her maternal grandmother, sister, and sister ; Stroke in her maternal grandmother. Social History: Social History Social History Marital status: Spouse name: N/A Number of children: N/A Years of education: N/A Social History Main Topics Smoking status: Never Smoker Smokeless tobacco: Never Used Alcohol use 1.2 oz/week 2 Glasses of wine per week Comment: les than one a week Drug use: No Sexual activity: Yes Partners: Male control/ protection: IUD Other Topics Concern None Social History Narrative None Review of Systems Constitutional: Negative for chills and fever. HENT: Negative for trouble swallowing and voice change. Eyes: Negative for visual disturbance. Respiratory: Negative for chest tightness and shortness of breath. Cardiovascular: Negative for chest pain, palpitations and leg swelling. Gastrointestinal: Negative for constipation, diarrhea, nausea and vomiting. Genitourinary: Negative for dysuria, frequency and urgency. Musculoskeletal: Negative for back pain and neck pain. Skin: Negative for rash and wound. Neurological: Negative for dizziness, syncope and light-headedness. Objective: Vitals: 01/04/19 0856 BP: 104/70 Pulse: 84 Resp: 14 Temp: 36.8 C (98.3 F) TempSrc: Tympanic SpO2: 96% Weight: 43.5 kg (96 lb) Height: 1.549 m (5' 1") Body mass index is 18.14 kg/m. Physical Exam Constitutional: She is oriented to person, place, and time. She appears well-developed and well-nourished. No distress. Appropriately dressed and groomed HENT: Head: Normocephalic and atraumatic. Right Ear: Tympanic membrane, external ear and ear canal normal. Left Ear: Tympanic membrane, external ear and ear canal normal. Mouth/Throat: Uvula is midline, oropharynx is clear and moist and mucous membranes are norm al. Eyes: Conjunctivae are normal. Neck: Trachea normal. No thyroid mass and no thyromegaly present. Cardiovascular: Normal rate, regular rhythm and normal heart sounds. Pulmonary/Chest: Effort normal and breath sounds normal. Musculoskeletal: She exhibits no edema. Neurological: She is alert and oriented to person, place, and time. Skin: Skin is warm and dry. Psychiatric: She has a normal mood and affect. Her behavior is normal. Nursing note and vitals reviewed. Ortho Exam Assessment: 1. Dairy allergy 2. Environmental allergies 3. Breast mass, right Plans: 1. Dairy allergy I discussed food intolerance vs allergy with patient. Advised dairy is a common allergy. W ith level of pain and diarrhea, discussed hers sounds more like allergy. Advised avoiding mi lk. Can continue almond/ coconut milk. 2. Environmental allergies I reviewed sinus allergies. Advised patient she is managing it well. Will continue Zyrtec, Flonase when needed. No changes today. 3. Breast mass, right Discussed right breast density. Added to problem list. Patient to let me know if any change s occur. Follow-up: Return in about 9 months (around 10/04/2019) for annual exam. I, Litzy Quezada GA, am acting as a scribe on behalf of, and in the presence of MD Keke Akers Cert MA 01/04/2019 I, Dr. Joseph Gilmore, personally performed the services described in this documentation, as scribed in my presence and it is both accurate and complete. Joseph Gilmore MD 01/04/19 documented in this e ncounter Plan of Treatment +--------+---------+ + + + | Date | Type | Specialty | Care Team | Description | +--------+---------+ + + + | 10/10/ | Office | Family Medicine | Joseph Gilmore, | | | 2019 | Visit | | [address] | | | | | | [place] | | | | | | [address] | | | | | | | | +--------+---------+ + + + documented as of this encounter Visit Diagnoses + + | Diagnosis | + + | Dairy allergy - Primary Allergy, unspecified not elsewhere classified | + + | Environmental allergies Allergic rhinitis, cause unspecified | + + | Breast mass, right Lump or mass in breast | + + | 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
--- OUTSIDE RECORDS SUMMARY | ~2019-10-09 | XMS | Encounter Summary ---
Demographics + + + | Address | [address] | | | [place] [address] | + + + | Home Phone | | + + + | Preferred Language | Unknown | + + + | Marital Status | | + + + | Christian Affiliation | 1013 | + + + | Race | Unknown | + + + | Ethnic Group | Unknown | + + + Author + + + | Author | [facility] | | | and [place] | + + + | Organization | [facility] | | | [...] Team Providers + +------+ + | Care Assembly Repairer Name | Role | Phone | + +------+ + PCP | Unavailable | + +------+ + Encounter Details +--------+ + + + + | Date | Type | Department | Care Team | Description | +--------+ + + + + | 08/31/ | [facility] | [place] [facility] | Abimbola Guerin | | | 2016 | Encounter | [facility] | [address] | | | | | [facility] [address] | [place] | | | | | [facility], | [facility] [place] [address] | | | | | [place] [address] | [phone] | | | | | [phone] | | | +--------+ + + + [...] [place] | | | | | | [address] | | | | | | | | +--------+---------+ + + + documented as of this encounter Visit Diagnoses Not on filedocumented in this encounter"
--- OUTSIDE RECORDS SUMMARY | ~2019-10-09 | XMS | Encounter Summary ---
Demographics + + + | Address | [address] | | | [place] [address] | + + + | Home Phone | | + + + | Preferred Language | Unknown | + + + | Marital Status | | + + + | Yarsanism Affiliation | 1013 | + + + | Race | Unknown | + + + | Ethnic Group | Unknown | + + + Author + + + | Author | [facility] | | | and [place] | + + + | Organization | [facility] | | | [...] Team Providers + +------+ + | Care Dynamics Ax Solution Architect Name | Role | Phone | [...] [place] | | | | | [address] | [address] | | | | | [phone] | [phone] | | | | | | | [...] [place] | | | | | | [address] | | | | | | | | +--------+---------+ + + + documented as of this encounter Visit Diagnoses Not on filedocumented in this encounter"
--- OUTSIDE RECORDS SUMMARY | ~2019-10-09 | XMS | Encounter Summary ---
Demographics + + + | Address | [address] | | | [place] [address] | + + + | Home Phone | | + + + | Preferred Language | Unknown | + + + | Marital Status | | + + + | Church Affiliation | 1013 | + + + [...] Team Providers + +------+ + | Care Bevel Polisher Name | Role | Phone | + [...] [place] | | | | | [address] | [address] | | | | | [phone] | [phone] | | | | | | | [...] [place] | | | | | | [address] | | | | | | | | +--------+---------+ + + + documented as of this encounter Visit Diagnoses Not on filedocumented in this encounter"
--- OUTSIDE RECORDS SUMMARY | ~2019-10-09 | XMS | Encounter Summary ---
Demographics + + + | Address | [address] | | | [place] [address] | + + + | Home Phone | | + + + | Preferred Language | Unknown | + + + | Marital Status | | + + + | Mandaeism Affiliation | 1013 | + + + | Race | Unknown | + + + | Ethnic Group | Unknown | + + + Author + + + | Author | [facility] | | | and [place] | + + + | Organization | [facility] | | | [...] Team Providers + +------+ + | Care Life Skills Trainer Name | Role | Phone | + [...] [place], [place] | | | | | [address] | [address] | | | | | [phone] | [phone] | | | | | | | [...] [place] | | | | | | [id number] | | | | | | | | +--------+---------+ + + + documented as of this encounter Visit Diagnoses Not on filedocumented in this encounter"
--- OUTSIDE RECORDS SUMMARY | ~2019-10-09 | XMS | Encounter Summary ---
Demographics + + + | Address | [address] | | | [place] [address] | + + + | Home Phone | | + + + | Preferred Language | Unknown | + + + | Marital Status | | + + + | Cheondoism Affiliation | 1013 | + + + | Race | Unknown | + + + | Ethnic Group | Unknown | + + + Author + + + | Author | [facility] | | | and [place] | + + + | Organization | [facility] | | [...] Team Providers + +------+ + | Care Sales Assistant Entertainment And Media Name | Role | Phone | + +------+ + PCP | Unavailable | + +------+ + Encounter Details +--------+ + + + + | Date | Type | Department | Care Team | Description | +--------+ + + + + | 10/26/ | Orders Only | [facility] | Tory Abebe | | | 2013 | | [facility] | [address] | | | | | [address] | [address] | | | | | [address], | [place] | | | | | [place] [address] | [address] | | | | | [phone] | [phone] | | | | | | | [...] [place] | | | | | | [address] | | | | | | | | +--------+---------+ + + + documented as of this encounter Procedures + +--------+ + + + | Procedure Name | Priori | Date/Time | Associated Diagnosis | Comments | | | ty | | | | + +--------+ + + + | PAP, LB REFLEX HPV | Routin | 10/26/2014 | | Results for this | | ALL PTH | e | 1:05 PM | | procedure are in the | | | | PST | | results section. | + +--------+ + + + documented in this encounter Results Pap, Lb Rflx HPV All Pth (10/26/2014 1:05 PM PST) + + | Specimen | + + | | + + + + + | Narrative | Performed At | + + + | .D: 14 : 00:00am .T: [facility]OS Cytology Report .PV: MAMADOU Status: F | EXTERNAL LAB | | Ordering Provider Toyr ABEBE M.D. @W/- X/ | | | Provider - [facility] /W Collected Date | | | 20141026 Received Date 20141029 Completed Date | | | 20141029 Specimen Source: Liquid base - cervical Number | | | of Slides: 10 Menstrual Status Acyclic Clinical | | | History: Hormones - Mirena Cytopathologic | | | Diagnosis: Negative for Intraepithelial Lesion or Malignancy | | | Specimen Adequacy: Satisfactory for evaluation. | | | Transformation zone component present Comment: Repeat smear | | | at your discretion. Specimen processed successfully by | | | [employer] Slide Milk Runner, [employer], [employer]. | | | History: [id number] 10/24/13 Negative for | | | Intraepithelial Lesion or Malignancy [id number] 01/19/12 | | | Negative for Intraepithelial Lesion or Malignancy Disclaimer | | | The pap smear is not a diagnostic procedure and should not be used | | | as the sole means to detect cervical cancer. It is only a screening | | | procedure to aid in the detection of cervical cancer. Both | | | false-negative and false-positive results have been experienced. | | | User 1 Lab Ordering Provider: | | | Tory Abebe M.D. @W/- X/, [facility] Accession: | | | [id number] # SIGNED BY TORY ABEBE MD, Dr. (MAMADOU)11/01/2014 | | | 02:44PM | | + + + + +---------+ + + | Performing | Address | City/State/Zipcode | Phone Number | | Organization | | | | + +---------+ + + | EXTERNAL LAB | | | | + +---------+ + + documented in this encounter Visit Diagnoses Not on filedocumented in this encounter"
--- OUTSIDE RECORDS SUMMARY | ~2019-10-09 | XMS | Encounter Summary ---
Demographics + + + | Address | [address] | | | [place] [address] | + + + | Home Phone [...] Team Providers + +------+ + | Care Client Liaison Name | Role | Phone | + +------+ + | Abimbola Guerin DO | PCP | | + +------+ + Reason for Visit +--------+ + | Reason | Comments | +--------+ + | Other | | +--------+ + Encounter Details +--------+ + + + + | Date | Type | Department | Care Team | Description | +--------+ + + + + | 04/29/ | Telephone | [facility] | Abimbola Guerin | Other | | 2018 | | [facility] | [address] | | | | | [address] [place] | [place] | | | | | [place], [place] | [place] [address] | | | | | [address] | [phone] | | | | | [phone] | | | +--------+ + + + [...] [place] | | | | | | [id number] | | | | | | | | +--------+---------+ + + + documented as of this encounter Visit Diagnoses Not on filedocumented in this encounter"
--- OUTSIDE RECORDS SUMMARY | ~2019-10-09 | XMS | Encounter Summary ---
Demographics + + + | Address | [address] | | | [place] [address] | + + + | Home Phone [...] Team Providers + +------+ + | Care Relay Checker Name | Role | Phone | + +------+ + PCP | Unavailable | + +------+ + Encounter Details +--------+ + + + + | Date | Type | Department | Care Team | Description | +--------+ + + + + | 10/26/ | Hospital | [facility] | Gino Metzger | | | 2013 | Encounter | [facility] | [address] | | | | | [address] [place] | [address] | | | | | [place] | [place] | | | | | [address] | [address] | | | | | [phone] | | | | | | | [...] [place] | | | | | | [address] | | | | | | | | +--------+---------+ + + + documented as of this encounter Visit Diagnoses Not on filedocumented in this encounter"
--- OUTSIDE RECORDS SUMMARY | ~2019-10-09 | XMS | Encounter Summary ---
Demographics + + + | Address | [address] | | | [place] [address] | + + + | Home Phone | | + + + | Preferred Language | Unknown | + + + | Marital Status | | + + + | Zoroastrianism Affiliation | 1013 | + + + | Race | Unknown | + + + | Ethnic Group | Unknown | + + + Author + + + | Author | [facility] | | | and [place] | + + + | Organization | [facility] | | | [...] Providers + +------+ + | Care Home Theater Expert Name | Role | Phone | + [...] + + | 01/04/ | Telephone | [facility] | Abimbola Guerin | ED Follow-up | | 2018 | | [facility] | [address] | | | | | [facility] | [address] [place] | | | | | [facility] [facility] [place], | [place] [address] | | | | | [place] [address] | [phone] | | | | | [phone] | | | +--------+ + + + [...]
--- OUTSIDE RECORDS SUMMARY | ~2019-10-09 | XMS | Encounter Summary ---
Demographics + + + | Address | [address] | | | [place] [address] | + + + | Home Phone | | + + + | Preferred Language | Unknown | + + + | Marital Status | | + + + | Mandaen Affiliation | 1013 | + + + [...] Providers + +------+ + | Care Supervisor Cartography Name | Role | Phone | + [...] [place] | | | | | [address] | [address] | | | | | [phone] | [phone] | | | | | | | [...] [place] | | | | | | [address] | | | | | | | | +--------+---------+ + + + documented as of this encounter Visit Diagnoses Not on filedocumented in this encounter"
--- OUTSIDE RECORDS SUMMARY | ~2019-10-09 | XMS | Encounter Summary ---
Demographics + + + | Address | [address] | | | [place] [address] | + + + | Home Phone | | + + + | Preferred Language | Unknown | + + + | Marital Status | | + + + | Moravian Affiliation | 1013 | + + + | Race | Unknown | + + + | Ethnic Group | Unknown | + + + Author + + + | Author | [facility] | | | and [place] | + + + | Organization | [facility] | | [...] Team Providers + +------+ + | Care Jailer/Training Officer Name | Role | Phone | + +------+ + PCP | Unavailable | + +------+ + Encounter Details +--------+ + + + + | Date | Type | Department | Care Team | Description | +--------+ + + + + | / | Hospital | [facility] | Gino Metzger | | | 2011 | Encounter | [facility] | [address] | | | | | [address] [place] | [address] | | | | | [place] | [place] | | | | | [address] | [address] | | | | | [phone] | | | | | | | [...] [place] | | | | | | [address] | | | | | | | | +--------+---------+ + + + documented as of this encounter Visit Diagnoses Not on filedocumented in this encounter"
--- OUTSIDE RECORDS SUMMARY | ~2019-10-09 | XMS | Encounter Summary ---
Demographics + + + | Address | [address] | | | [place] [address] | + + + | Home Phone | | + + + | Preferred Language | Unknown | + + + | Marital Status | | + + + | Anabaptist Affiliation | 1013 | + + + [...] Team Providers + +------+ + | Care Certified Dietary Manager Name | Role | Phone | + +------+ + PCP | Unavailable | + +------+ + Encounter Details +--------+ + + + + | Date | Type | Department | Care Team | Description | +--------+ + + + + | 04/17/ | Hospital | [facility] | Ericka Hall | | | 2015 | Encounter | [facility] | Caryn, GRIEVANCE AND APPEALS COORDINATOR [address] | | | | | MEDICAL CL[address] | [facility], [place] | | | | | [facility] [facility], | [address] | | | | | [place] [address] | [phone] | | | | | [phone] | | | +--------+ + + + [...] [place] | | | | | | [address] | | | | | | | | +--------+---------+ + + + documented as of this encounter Visit Diagnoses Not on filedocumented in this encounter"
--- OUTSIDE RECORDS SUMMARY | ~2019-10-09 | XMS | Encounter Summary ---
Demographics + + + | Address | [address] | | | [place] [address] | + + + | Home Phone [...] Team Providers + +------+ + | Care Trailer Assembler Name | Role | Phone | + +------+ + PCP | Unavailable | + +------+ + Encounter Details +--------+ + + + + | Date | Type | Department | Care Team | Description | +--------+ + + + + | 10/26/ | Orders Only | [facility] | Tory Abebe | | | 2013 | | [facility] | [address] | | | | | [address] | [address] | | | | | [address], | [place] | | | | | [place] [address] | [address] | | | | | [phone] | | | | | | | [...] [place] | | | | | | [address] | | | | | | | [...] | EXTERNAL LAB | | Ordering Provider Tory ABEBE M.D. @W/- X/ | | | Provider - [place] /W Collected Date | | | 20141026 [...] Specimen processed successfully by | | | [employer] Head Wet [employer], [employer], [employer]. | | | History: [id number] 10/24/13 Negative for | | | Intraepithelial Lesion or Malignancy [id number] 01/19/12 | | | Negative for Intraepithelial [...] | | Tory Abebe M.D. @W/- X/, [facility] Accession: | | | [id number] # SIGNED BY TORY ABEBE MD, Dr. [...]
--- OUTSIDE RECORDS SUMMARY | ~2019-10-09 | XMS | Encounter Summary ---
Demographics + + + | Address | [address] | | | [place] [address] | + + + | Home Phone | | + + + | Preferred Language | Unknown | + + + | Marital Status | | + + + | Baptism Affiliation | 1013 | + + + | Race | Unknown | + + + | Ethnic Group | Unknown | + + + Author + + + | Author | [facility] | | | and [place] | + + + | Organization | [facility] | | | [...] Team Providers + +------+ + | Care Surgery Specialist Name | Role | Phone | + +------+ + PCP | Unavailable | + +------+ + Encounter Details +--------+ + + + + | Date | Type | Department | Care Team | Description | +--------+ + + + + | 07/25/ | Hospital | [facility] | Gino Metzger | | | 2013 | Encounter | [facility] | [address] | | | | | [address] [place] | [address] | | | | | [place] | [place] | | | | | [address] | [address] | | | | | [phone] | | | | | | | [...] [place] | | | | | | [address] | | | | | | | | +--------+---------+ + + + documented as of this encounter Visit Diagnoses Not on filedocumented in this encounter"
--- OUTSIDE RECORDS SUMMARY | ~2019-10-09 | XMS | Encounter Summary ---
Demographics + + + | Address | [address] | | | [place] [address] | + + + | Home Phone [...] Team Providers + +------+ + | Care Inspector Glass Or Mirror Name | Role | Phone | + [...] | | | | [place] | [address] | | | | | [address] | | | | | | [phone] | | | +--------+ + + + [...]
--- OUTSIDE RECORDS SUMMARY | ~2019-10-09 | XMS | Encounter Summary ---
Demographics + + + | Address | [address] | | | [place] [address] | + + + | Home Phone [...] Team Providers + +------+ + | Care Content Assistant Name | Role | Phone | [...] + | 04/29/ | Telephone | [facility] | Abimbola Guerin | Other | | 2018 | | [facility] | [address] | | | | | [address] [place] | [address] [place] | | | | | [place], [place] | [place] [address] | | | | | [address] | [phone] | | | | | [phone] | | | +--------+ + + + [...] [place] | | | | | | [id number] | | | | | | | | +--------+---------+ + + + documented as of this encounter Visit Diagnoses Not on filedocumented in this encounter"
--- OUTSIDE RECORDS SUMMARY | ~2019-10-09 | XMS | Encounter Summary ---
Demographics + + + | Address | [address] | | | [place] [address] | + + + | Home Phone | | + + + | Preferred Language | Unknown | + + + | Marital Status | | + + + | Restorationism Affiliation | 1013 | + + + | Race | Unknown | + + + | Ethnic Group | Unknown | + + + Author + + + | Author | [facility] | | | and [place]it[place] | + + + | Organization | [facility] | | [...] Team Providers + +------+ + | Care Spindle Tester Name | Role | Phone | + [...] [place] | | | | | [address] | [address] | | | | | [phone] | [phone] | | | | | | | [...] [place] | | | | | | [address] | | | | | | | | +--------+---------+ + + + documented as of this encounter Visit Diagnoses Not on filedocumented in this encounter"
--- OUTSIDE RECORDS SUMMARY | ~2019-10-09 | XMS | Encounter Summary ---
Demographics + + + | Address | [address] | | | [place] [address] | + + + | Home Phone | | + + + | Preferred Language | Unknown | + + + | Marital Status | | + + + | Baptism Affiliation | 1013 | + + + | Race | Unknown | + + + | Ethnic Group | Unknown | + + + Author + + + | Author | [facility] | | | and [place]itario[place] | + + + | Organization | [facility] | | | and [...] Team Providers + +------+ + | Care Accounting Lecturer Name | Role | Phone | + [...] [place] | | | | | [address] | [address] | | | | | [phone] | [phone] | | | | | | | [...] [place] | | | | | | [address] | | | | | | | | +--------+---------+ + + + documented as of this encounter Visit Diagnoses Not on filedocumented in this encounter"
--- OUTSIDE RECORDS SUMMARY | ~2019-10-09 | XMS | Encounter Summary ---
Demographics + + + | Address | [address] | | | [place] [address] | + + + | Home Phone | | + + + | Preferred Language | Unknown | + + + | Marital Status | | + + + | Episcopalian Affiliation | 1013 | + + + | Race | Unknown | + + + | Ethnic Group | Unknown | + + + Author + + + | Author | [facility] | | | and [place]itario[place] | + + + | Organization | [facility] | | | and [...] Team Providers + +------+ + | Care Magnetic Tape Winder Name | Role | Phone | + +------+ + PCP | Unavailable | + +------+ + Encounter Details +--------+ + + + + | Date | Type | Department | Care Team | Description | +--------+ + + + + | 05/02/ | Hospital | [facility] | [place], | | | 2015 | Encounter | [facility] | Avinash Pierre, | | | | | MEDICAL CLINIC Alysa | MD [address] | | | | | [address] [facility], | [place], [place] | | | | | [place] [address] | [address] | | | | | [phone] | [phone] | | | | | | | [...] [place] | | | | | | [address] | | | | | | | | +--------+---------+ + + + documented as of this encounter Visit Diagnoses Not on filedocumented in this encounter"
--- OUTSIDE RECORDS SUMMARY | ~2019-10-09 | XMS | Encounter Summary ---
Demographics + + + | Address | [address] | | | [place] [address] | + + + | Home Phone [...] Team Providers + +------+ + | Care Curtain Stitcher Name | Role | Phone | + +------+ + PCP | Unavailable | + +------+ + Encounter Details +--------+ + + + + | Date | Type | Department | Care Team | Description | +--------+ + + + + | 08/31/ | [facility] | [facility] CHARLES | Abimbola Guerin | | | 2016 | Encounter | [facility] | [address] | | | | | MEDICAL CLINIC [address] | [place] | | | | | 4TH [facility], | [facility] [address] | | | | | [place] [address] | [phone] | | | | | [phone] | | | +--------+ + + + [...] [place] | | | | | | [address] | | | | | | | | +--------+---------+ + + + documented as of this encounter Visit Diagnoses Not on filedocumented in this encounter"
--- OUTSIDE RECORDS SUMMARY | ~2019-10-09 | XMS | Encounter Summary ---
Demographics + + + | Address | [address] | | | [place] [address] | + + + | Home Phone | | + + + | Preferred Language | Unknown | + + + | Marital Status | | + + + | Zoroastrian Affiliation | 1013 | + + + | Race | Unknown | + + + | Ethnic Group | Unknown | + + + Author + + + | Author | [facility] | | | and [place]it[place] | + + + | Organization | [facility] | | | and [...] Team Providers + +------+ + | Care Grinding Wheel Operator Name | Role | Phone | + +------+ + PCP | Unavailable | + +------+ + Encounter Details +--------+ + + + + | Date | Type | Department | Care Team | Description | +--------+ + + + + | 04/17/ | Hospital | [facility] | Ericka Hall | | | 2015 | Encounter | [facility] | Caryn, BUILDING MAINTENANCE SUPERINTENDENT [address] | | | | | MEDICAL CLIN[address] | [facility], [place] | | | | | 4TH [facility], | [address] | | | | | [place] [address] | [phone] | | | | | [phone] | | | +--------+ + + + [...] [place] | | | | | | [address] | | | | | | | | +--------+---------+ + + + documented as of this encounter Visit Diagnoses Not on filedocumented in this encounter"
--- OUTSIDE RECORDS SUMMARY | ~2019-10-09 | XMS | Encounter Summary ---
Demographics + + + | Address | [address] | | | [place] [address] | + + + | Home Phone | | + + + | Preferred Language | Unknown | + + + | Marital Status | | + + + | Confucianism Affiliation | 1013 | + + + | Race | Unknown | + + + | Ethnic Group | Unknown | + + + Author + + + | Author | [facility] | | | and [place]it[place] | + + + | Organization | [facility] | | [...] Team Providers + +------+ + | Care Dredge Pipe Installer Name | Role | Phone | + [...] | | | | [place] | [place] | | | | | [address] | [address] | | | | | [phone] | [phone] | | | | | | | [...] discharged with labor and mo vement precautions. [facility] Signed and Approved by: TORY ABEBE [...] [place] | | | | | | [id number] | | | | | | | | +--------+---------+ + + + documented as of this encounter Visit Diagnoses Not on filedocumented in this encounter"
--- OUTSIDE RECORDS SUMMARY | ~2019-10-09 | XMS | Encounter Summary ---
Demographics + + + | Address | [address] | | | [place] [address] | + + + | Home Phone [...] | Author | [facility] | | | and Solitarioana | + + + | Organization | [facility] | | [...] Team Providers + +------+ + | Care Stock Room Manager Name | Role | Phone | + +------+ + PCP | Unavailable | + +------+ + Encounter Details +--------+ + + + + | Date | Type | Department | Care Team | Description | +--------+ + + + + | 09/03/ | Hospital | [facility] | [place], | | | 2013 | Encounter | [facility] | Avinash Pierre, | | | | | MEDICAL CLINIC Alysa | MD [address] | | | | | 4TH [facility], | [place], [place] | | | | | [place] [address] | [address] | | | | | [phone] | [phone] | | | | | | | [...] [place] | | | | | | [address] | | | | | | | | +--------+---------+ + + + documented as of this encounter Visit Diagnoses Not on filedocumented in this encounter"
--- OUTSIDE RECORDS SUMMARY | ~2019-10-09 | XMS | Encounter Summary ---
Demographics + + + | Address | [address] | | | [place] [address] | + + + | Home Phone [...] Team Providers + +------+ + | Care Jailer Chief Name | Role | Phone | + +------+ + | Truong Abimbola Bhatti | PCP | | + +------+ + Reason for Visit +--------+ + | Reason | Comments | +--------+ + | Triage | | +--------+ + Encounter Details +--------+ + + + + | Date | Type | Department | Care Team | Description | +--------+ + + + + | 04/25/ | Telephone | [place] [facility] | Saqib Claros, | Triage | | 2018 | | [facility] | LEGAL BILLING COORDINATOR | | | | | MEDICAL CLINIC [address] | | | | | | [address] [place], | | | | | | [place] [address] | | | | | | [phone] | | | +--------+ + + + [...] [place] | | | | | | [address] | | | | | | | | +--------+---------+ + + + documented as of this encounter Visit Diagnoses Not on filedocumented in this encounter"
--- OUTSIDE RECORDS SUMMARY | ~2019-10-09 | XMS | Encounter Summary ---
Demographics + + + | Address | [address] | | | [place] [address] | + + + | Home Phone [...] Team Providers + +------+ + | Care Market Maker Name | Role | Phone | + +------+ + PCP | Unavailable | + +------+ + Encounter Details +--------+ + + + + | Date | Type | Department | Care Team | Description | +--------+ + + + + | 05/04/ | Hospital | [facility] | Ericka Hall | | | 2016 | Encounter | H[facility]PITAL [facility] | [address] | | | | | [address] [place] | [facility] [place] | | | | | [place] | [address] | | | | | [address] | [phone] | | | | | [phone] | | | +--------+ + + + [...] [place] | | | | | | [address] | | | | | | | | +--------+---------+ + + + documented as of this encounter Visit Diagnoses Not on filedocumented in this encounter"
--- OUTSIDE RECORDS SUMMARY | ~2019-10-09 | XMS | Encounter Summary ---
Demographics + + + | Address | [address] | | | [place] [address] | + + + | Home Phone | | + + + | Preferred Language | Unknown | + + + | Marital Status | | + + + | Christianity Affiliation | 1013 | + + + | Race | Unknown | + + + | Ethnic Group | Unknown | + + + Author + + + | Author | [facility] | | | and Solitarioana | + + + | Organization | [facility] | | | [...] Providers + +------+ + | Care Research Biostatistician Name | Role | Phone | + +------+ + PCP | Unavailable | + +------+ + Encounter Details +--------+ + + + + | Date | Type | Department | Care Team | Description | +--------+ + + + + | 09/03/ | Hospital | [facility] | [place], | | | 2013 | Encounter | [facility] | Avinash Pierre, | | | | | MEDICAL CLINIC Alysa | MD [address] | | | | | 4TH [facility], | [place], [place] | | | | | [place] [address] | [address] | | | | | [phone] | [phone] | | | | | | | [...] [place] | | | | | | [address] | | | | | | | | +--------+---------+ + + + documented as of this encounter Visit Diagnoses Not on filedocumented in this encounter"
--- OUTSIDE RECORDS SUMMARY | ~2019-10-09 | XMS | Encounter Summary ---
Demographics + + + | Address | [address] | | | [place] [address] | + + + | Home Phone [...] Team Providers + +------+ + | Care Long Wall Mining Machine Tender Name | Role | Phone | + +------+ + PCP | Unavailable | + +------+ + Encounter Details +--------+ + + + + | Date | Type | Department | Care Team | Description | +--------+ + + + + | 05/02/ | Hospital | [facility] | [place], | | | 2015 | Encounter | [facility] | Avinash Pierre, | | | | | MEDICAL CLINIC Alysa | MD [address] | | | | | [facility], | [place], [place] | | | | | [place] [address] | [address] | | | | | [phone] | [phone] | | | | | | | [...] [place] | | | | | | [address] | | | | | | | | +--------+---------+ + + + documented as of this encounter Visit Diagnoses Not on filedocumented in this encounter"
--- OUTSIDE RECORDS SUMMARY | ~2019-10-09 | XMS | Encounter Summary ---
Demographics + + + | Address | [address] | | | [place] [address] | + + + | Home Phone [...] Team Providers + +------+ + | Care Motion Picture Cameraman Name | Role | Phone | + +------+ + PCP | Unavailable | + +------+ + Encounter Details +--------+ + + + + | Date | Type | Department | Care Team | Description | +--------+ + + + + | 01/19/ | [facility] | [place] CHARLES | Abimbola Gueirn | | | 2017 | Encounter | [facility] | [address] | | | | | MEDICAL CLINIC [address] | [place] | | | | | 4TH [facility], | [facility] [place] [address] | | | | | [place] [address] | [phone] | | | | | [phone] | | | +--------+ + + + [...] [place] | | | | | | [address] | | | | | | | | +--------+---------+ + + + documented as of this encounter Visit Diagnoses Not on filedocumented in this encounter"
--- OUTSIDE RECORDS SUMMARY | ~2019-10-09 | XMS | Encounter Summary ---
Demographics + + + | Address | [address] | | | [place] [address] | + + + | Home Phone [...] Team Providers + +------+ + | Care Computer Builder Name | Role | Phone | + +------+ + PCP | Unavailable | + +------+ + Encounter Details +--------+ + + + + | Date | Type | Department | Care Team | Description | +--------+ + + + + | 04/22/ | Hospital | [facility] | Ericka Hall | | | 2015 | Encounter | [facility] | Caryn, PAPER TWISTER TENDER [address] | | | | | MEDICAL CLIN[address] | [facility], [place] | | | | | 4TH [facility], | [address] | | | | | [place] [address] | [phone] | | | | | [phone] | | | +--------+ + + + [...] [place] | | | | | | [address] | | | | | | | | +--------+---------+ + + + documented as of this encounter Visit Diagnoses Not on filedocumented in this encounter"
--- OUTSIDE RECORDS SUMMARY | ~2019-10-09 | XMS | Encounter Summary ---
Demographics + + + | Address | [address] | | | [place] [address] | + + + | Home Phone | | + + + | Preferred Language | Unknown | + + + | Marital Status | | + + + | Sabianist Affiliation | 1013 | + + + [...] Providers + +------+ + | Care Senior Planning Manager Name | Role | Phone | [...] [place] | | | | | [address] | [address] | | | | | [phone] | [phone] | | | | | | | [...] [place] | | | | | | [address] | | | | | | | | +--------+---------+ + + + documented as of this encounter Visit Diagnoses Not on filedocumented in this encounter"
--- OUTSIDE RECORDS SUMMARY | ~2019-10-09 | XMS | Encounter Summary ---
Demographics + + + | Address | [address] | | | [place] [address] | + + + | Home Phone | | + + + | Preferred Language | Unknown | + + + | Marital Status | | + + + | Evangelical Affiliation | 1013 | + + + | Race | Unknown | + + + | Ethnic Group | Unknown | + + + Author + + + | Author | [facility] | | | and Solitarioana | + + + | Organization | [facility] | | | [...] Team Providers + +------+ + | Care Van Driver Name | Role | Phone | + [...] | Triage | | 2018 | | [facility] | DIRECTOR FIELD SERVICES | | | | | MEDICAL CLINIC [address] | | | | | | [address] [place], | | | | | | [place] [address] | | | | | | [phone] | | | +--------+ + + + [...] [place] | | | | | | [id number] | | | | | | | | +--------+---------+ + + + documented as of this encounter Visit Diagnoses Not on filedocumented in this encounter"
--- OUTSIDE RECORDS SUMMARY | ~2019-10-09 | XMS | Encounter Summary ---
Demographics + + + | Address | [address] | | | [place] [address] | + + + | Home Phone | | + + + | Preferred Language | Unknown | + + + | Marital Status | | + + + | Nondenominational Affiliation | 1013 | + + + | Race | Unknown | + + + | Ethnic Group | Unknown | + + + Author + + + | Author | [facility] | | | and Solitarioana | + + + | Organization | [facility] | | [...] Team Providers + +------+ + | Care Search Marketing Analyst Name | Role | Phone | + +------+ + PCP | Unavailable | + +------+ + Encounter Details +--------+ + + + + | Date | Type | Department | Care Team | Description | +--------+ + + + + | 10/16/ | [facility] | [place] CHARLES | Lindsey Mccarthy | | | 2016 | Encounter | HOSPITAL NURSERY | [address] | | | | | [address] [place] | 4th [facility], | | | | | [place], [place] | [place] [address] | | | | | [address] | [phone] | | | | | [phone] | | | +--------+ + + + [...] [place] | | | | | | [address] | | | | | | | | +--------+---------+ + + + documented as of this encounter Visit Diagnoses Not on filedocumented in this encounter"
--- OUTSIDE RECORDS SUMMARY | ~2019-10-09 | XMS | Encounter Summary ---
Demographics + + + | Address | [address] | | | [place] [address] | + + + | Home Phone | | + + + | Preferred Language | Unknown | + + + | Marital Status | | + + + | Nondenominational Affiliation | 1013 | + + + | Race | Unknown | + + + | Ethnic Group | Unknown | + + + Author + + + | Author | [facility] | | | and Solitarioana | + + + | Organization | [facility] | | | [...] Team Providers + +------+ + | Care Library Page Name | Role | Phone | + [...] | [address] [place] | [place] [address] | | | | | [place] | [phone] | | | | | [address] | | | | | | [phone] | | | +--------+ + + + [...] [place] | | | | | | [address] | | | | | | | [...]
--- OUTSIDE RECORDS SUMMARY | ~2019-10-09 | XMS | Encounter Summary ---
Demographics + + + | Address | [address] | | | [place] [address] | + + + | Home Phone [...] Team Providers + +------+ + | Care Ob Gyn Name | Role | Phone | + +------+ + PCP | Unavailable | + +------+ + Encounter Details +--------+ + + + + | Date | Type | Department | Care Team | Description | +--------+ + + + + | 08/16/ | Hospital | [facility] | | | | 2006 - | Encounter | MED CTR WOMEN | | | | | | [facility] [address] | | | | 08/19/ | | [place], | | | | 2006 | | [place] [address] | | | | | | [phone] | | | +--------+ + + + [...] [place] | | | | | | [address] | | | | | | | | +--------+---------+ + + + documented as of this encounter Visit Diagnoses Not on filedocumented in this encounter"
--- OUTSIDE RECORDS SUMMARY | ~2019-10-09 | XMS | Encounter Summary ---
Demographics + + + | Address | [address] | | | [place] [address] | + + + | Home Phone | | + + + | Preferred Language | Unknown | + + + | Marital Status | | + + + | Confucianist Affiliation | 1013 | + + + | Race | Unknown | + + + | Ethnic Group | Unknown | + + + Author + + + | Author | [facility] | | | and Solitarioana | + + + | Organization | [facility] | | [...] Team Providers + +------+ + | Care Box Closing Machine Operator Name | Role | Phone [...] | | | | | Procedures | [address] | [place] | | | | | ECHO | Phone: | [address] | | | | | Complete | [phone] | Phone: | | | | | | Fax: | [phone] | | | | | | [phone] | Fax: | | | | | | | [phone] | +--------+--------+ + + + + Reason [...] | | | MEDICAL CLINIC [address] | [address] [place] | valve (Primary Dx) | | | | [address] [place], | [place] [address] | | | | | [place] [address] | [phone] | | | | | [phone] | | | +--------+---------+ + + + [...] Other (See Comments) Thyroid levels go down Bmcpsmuvlp-Iuaflffw-Hpdokmrss Rash Latex Rash Medications: Current Outpatient Prescriptions [...] normal. Entered by Laura Paz CNA 2, [facility], acting as scribe for Dr. Guerin, DO The documentation recorded by the scribe accurately reflects the service I personally perfo ed and the decisions made by me. Electronically signed by: Abimb[place] Guerin DO 04/26/2018 16:26 Note: Part of this report was transcribed using voice recognition software. Every effort wa s made to ensure accuracy. However, inadvertent computerized broom stitcher errors may be pre sent. documented in [...] [place] | | | | | | [id number] | | | | | | | [...]
--- OUTSIDE RECORDS SUMMARY | ~2019-10-09 | XMS | Encounter Summary ---
Demographics + + + | Address | [address] | | | [place] [address] | + + + | Home Phone [...] Team Providers + +------+ + | Care Analysis Tester Name | Role | Phone | [...] [address] [place] | [address] [place], | | | | | [place], [place] | [place] [address] | | | | | [address] | [phone] | | | | | [phone] | | | +--------+ + + + [...] [place] | | | | | | [address] | | | | | | | | +--------+---------+ + + + documented as of this encounter Visit Diagnoses Not on filedocumented in this encounter"
--- OUTSIDE RECORDS SUMMARY | ~2019-10-09 | XMS | Encounter Summary ---
Demographics + + + | Address | [address] | | | [place] [address] | + + + | Home Phone | | + + + | Preferred Language | Unknown | + + + | Marital Status | | + + + | Yazidi Affiliation | 1013 | + + + | Race | Unknown | + + + | Ethnic Group | Unknown | + + + Author + + + | Author | [facility] | | | and Solitarioana | + + + | Organization | [facility] | | [...] Team Providers + +------+ + | Care Forestry Laborer Name | Role | Phone | [...] [place] | | | | | [address] | [address] | | | | | [phone] | [phone] | | | | | | | [...] [place] | | | | | | [address] | | | | | | | | +--------+---------+ + + + documented as of this encounter Visit Diagnoses Not on filedocumented in this encounter"
--- OUTSIDE RECORDS SUMMARY | ~2019-10-09 | XMS | Encounter Summary ---
Demographics + + + | Address | [address] | | | [place] [address] | + + + | Home Phone | | + + + | Preferred Language | Unknown | + + + | Marital Status | | + + + | Mandaeism Affiliation | 1013 | + + + | Race | Unknown | + + + | Ethnic Group | Unknown | + + + Author + + + | Author | [facility] | | | and Solitarioana | + + + | Organization | [facility] | | [...] Team Providers + +------+ + | Care Juvenile Counselor Name | Role | Phone | + +------+ + PCP | Unavailable | + +------+ + Encounter Details +--------+ + + + + | Date | Type | Department | Care Team | Description | +--------+ + + + + | 10/16/ | [facility] | [place] [facility] | Lindsey Mccarthy | | | 2016 | Encounter | HOSPITAL NURSERY | [address] | | | | | [address] [place] | 4th [facility], | | | | | [place], [place] | [place] [address] | | | | | [address] | [phone] | | | | | [phone] | | | +--------+ + + + [...] [place] | | | | | | [address] | | | | | | | | +--------+---------+ + + + documented as of this encounter Visit Diagnoses Not on filedocumented in this encounter"
--- OUTSIDE RECORDS SUMMARY | ~2019-10-09 | XMS | Encounter Summary ---
Demographics + + + | Address | [address] | | | [place] [address] | + + + | Home Phone [...] Team Providers + +------+ + | Care Project Controls Specialist Name | Role | Phone | [...] | | [address], | [place], [place] | | | | | [place] [address] | [address] | | | | | [phone] | [phone] | | | | | | | [...] [place] | | | | | | [id number] | | | | | | | | +--------+---------+ + + + documented as of this encounter Visit Diagnoses + + | Diagnosis | + + | Family planning - Primary Other general counseling and advice for contraceptive | | management | + + documented in this encounter
--- OUTSIDE RECORDS SUMMARY | ~2019-10-09 | XMS | Encounter Summary ---
Demographics + + + | Address | [address] | | | [place] [address] | + + + | Home Phone [...] Team Providers + +------+ + | Care Mid Level Practitioner Name | Role | Phone | + +------+ + | Truong Abimbola Bhatti DO | PCP | | + +------+ + Reason for Visit + + + | Reason | Comments | + + + | Contraception | Mirena removal and insertion of new divice | + + + Encounter Details +--------+---------+ + + + | Date | Type | Department | Care Team | Description | +--------+---------+ + + + | 11/03/ | Office | [place] [facility] | Gino Metzger | Encounter for | | 2017 | Visit | [facility] | [address] | insertion of | | | | [address] | [address] TATE | intrauterine | | | | DR DEVON BELLE, | [place], [place] | contraceptive device | | | | [place] [address] | [address] | (IUD) (Primary Dx) | | | | [phone] | [phone] | | | | | | | [...] + + + | Blood Pressure | 104/59 | 11/03/2017 10:35 AM | | | | | PST | | + + + + + | Pulse | 88 | 11/03/2017 10:35 AM | | | | | PST [...] + + + + | Weight | 44.3 kg (97 lb 11.2 | 11/03/2017 10:35 AM | | | | oz) | PST | | + + + + + | Height | 154.9 cm (5' 1") | 11/03/2017 10:35 AM | | | | | PST | | + + + + + | Body Mass Index | 18.46 | 11/03/2017 10:35 AM | | | | | PST | | + + + + + documented in this encounter Progress Notes Gino Metzger MD - 11/03/2017 10:30 AM PSTFormatting of this note might be differen t from the original. Subjective: Patient ID: Isha Escalante is a 31 y.o. female. HPI Here for mirena insertion; Neg chylamydia and pap with recent annual; Reviewed risk and n o further questions; signed consent has a past medical history of Anemia. [...] in her maternal grandmother. Review of Systems Neg history of std Objective: BP 104/59 | Pulse 88 | Ht 1.549 m (5' 1") | Wt 44.3 kg (97 lb 11.2 oz) | BMI 18.46 kg/m Physical Exam The patient denied std history and had a negative upt and chylamydia done. I reviewed her prior counsellng regarding insertion risks and she had no further questions and signed the c onsent. She is to have a mirena iud inserted.The patient was examined for uterine position. A speculum was inserted and the cervix was cleaned with betadyne. A tenaculum was placed a t 12oclock and the uterus was sounded to 6.5 cm. The device was inserted with good sterile technique and deployed without incident. The string was trimmed to 3 cm. There were no com plications. Routine postinsertion precautions were reviewed and she will follow up in 2 week s for a string check. All her questions were answered. Assessment: mirena inserted without difficulty Plan: F/u 4 weeks string check documented in th is encounter Plan of [...] [place] | | | | | | [address] | | | | | | | | +--------+---------+ + + + documented as of this encounter Visit Diagnoses + + | Diagnosis | + + | Encounter for insertion of intrauterine contraceptive device (IUD) - Primary | + + documented in this encounter Administered Medications + +--------+ + +------+------+ | Medication Order | MAR | Action | Dose | Rate | Site | | | Action | Date | | | | + +--------+ + +------+------+ | levonorgestrel (MIRENA) 20 | Given | 11/03/20 | 1 Device | | | | MCG/24HR IUD 1 Device 1 Device, | | 17 11:08 | | | | | Intrauterine, ONCE, 11/03/17 | | AM PST | | | | | at 1130, For 1 dose | | | | | | + +--------+ + +------+------+ +---+---+ | | | +---+---+ documented in this encounter
--- OUTSIDE RECORDS SUMMARY | ~2019-10-09 | XMS | Encounter Summary ---
Demographics + + + | Address | [address] | | | [place] [address] | + + + | Home Phone | | + + + | Preferred Language | Unknown | + + + | Marital Status | | + + + | Rastafari Affiliation | 1013 | + + + | Race | Unknown | + + + | Ethnic Group | Unknown | + + + Author + + + | Author | [facility] | | | and [place] | + + + | Organization | [facility] | | | and [...] Team Providers + +------+ + | Care Software Security Architect Name | Role | Phone | [...] [place] | | | | | [address] | [address] | | | | | [phone] | [phone] | | | | | | | [...] [place] | | | | | | [address] | | | | | | | | +--------+---------+ + + + documented as of this encounter Visit Diagnoses Not on filedocumented in this encounter"
--- OUTSIDE RECORDS SUMMARY | ~2019-10-09 | XMS | Encounter Summary ---
Demographics + + + | Address | [address] | | | [place] [address] | + + + | Home Phone | | + + + | Preferred Language | Unknown | + + + | Marital Status | | + + + | Religion Affiliation | 1013 | + + + | Race | Unknown | + + + | Ethnic Group | Unknown | + + + Author + + + | Author | [facility] | | | and [place] | + + + | Organization | [facility] | | | [...] Team Providers + +------+ + | Care Administrative Services Manager Name | Role | Phone | [...] [place] | | | | | [address] | [address] | | | | | [phone] | [phone] | | | | | | | [...] [place] | | | | | | [address] | | | | | | | | +--------+---------+ + + + documented as of this encounter Visit Diagnoses Not on filedocumented in this encounter"
--- OUTSIDE RECORDS SUMMARY | ~2019-10-09 | XMS | Encounter Summary ---
Demographics + + + | Address | [address] | | | [place] [address] | + + + | Home Phone [...] Team Providers + +------+ + | Care Cruise Agent Name | Role | Phone | + [...] | | [address] [place] | [facility] [place] | | | | | [place] | [address] | | | | | [address] | [phone] | | | | | [phone] | | | +--------+ + + + [...] [place] | | | | | | [address] | | | | | | | | +--------+---------+ + + + documented as of this encounter Visit Diagnoses Not on filedocumented in this encounter"
--- OUTSIDE RECORDS SUMMARY | ~2019-10-09 | XMS | Encounter Summary ---
Demographics + + + | Address | [address] | | | [place] [address] | + + + | Home Phone [...] Team Providers + +------+ + | Care Plaster Machine Tender Name | Role | Phone [...] + + | 01/04/ | Office | [facility] | [place], | Dairy allergy | | 2019 | Visit | [facility] | [address] | (Primary Dx); | | | | [address] | [place] | Environmental | | | | [place], [place] | [address] | allergies; Breast | | | | [address] | | mass, right; Milk | | | | [phone] | | allergy | +--------+---------+ + + [...] here to establish care. Moved here from [facility] last April. 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 They have 2 children both boys. Ages 11 and 6. They enjoy basketball, camping, hiking, reading and shopp ing. Patient also runs every day runs in side when weather is like this. 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 I, Litzy Quezada ID, am acting as a scribe on behalf [...]
--- OUTSIDE RECORDS SUMMARY | ~2019-10-09 | XMS | Encounter Summary ---
Demographics + + + | Address | [address] | | | [place] [address] | + + + | Home Phone [...] Team Providers + +------+ + | Care Hospice Music Therapy Name | Role | Phone | + [...] for | | 2017 | Visit | [facility] | [address] | insertion of | | | | [address] | [address]ATE | intrauterine | | | | DR DEVON BELLE, | [place], [place] | contraceptive device | | | | [place] [address] | [address] | (IUD) (Primary Dx) | | | | [phone] | [phone] | | | | | | | [...] [place] | | | | | | [address] | | | | | | | [...]
[~2019-10-09 17:35] MED LIST: MIRENA1 EACH IY; ONE DAILY1 EAC1 PO; ROBAXIN500 MG PO
[2019-10-09] MEDS ORDERED: ZYRTEC10 MG PO (17:47)
--- NOTE | 2019-10-09 19:29 | EKG ---
[facility] [address] [facility] [place], [place] [address] Signed Normal sinus rhythm Normal ECG No previous ECGs available Confirmed by SONY HERMAN DO ([id number]) on 10/09/2019 7:29:13 PM Electronically Signed By: SONY HERMAN DO 10/09/19 1929 PATIENT NAME: NATALIA CORTEZ Electrocardiogram DATE OF : 87 PHYSICIAN: SONY HERMAN DO REPORT #: [id number] REPORT IS CONFIDENTIAL AND NOT TO BE RELEASED WITHOUT AUTHORIZATION
== END 2019-10-09 21:00 | disposition home or self-care (01) ==
LOC: ED 17:35
DX: M25.512 Pain in left shoulder (principal); Z91.040 Latex allergy status; Z88.8 Allergy status to other drugs, medicaments and biological substances; Z79.899 Other long term (current) drug therapy
CPT/HCPCS: 36415; 71045; 80053; 83735; 84484; 85025; 93005; 93010; 99284-25